=== PATIENT | female | born 1965 | race Caucasian/White ===

== ENCOUNTER → 2019-03-02 15:41 | Outpatient (CLI) | payer OTHER, SELFPAY ==
--- NOTE | ~2019-03-02 | XR_ITS ---
EXAMINATION: XR chest 2V 03/02/2019 16:17 INDICATION: Wheezing, cough and fever PROCEDURE: 2 view chest COMPARISON: 01/16/2019 FINDINGS: The lungs are clear. The cardiomediastinal silhouette is within normal limits. There are no pleural effusions. There is no pneumothorax suspected. IMPRESSION: 1: NO ACUTE CARDIOPULMONARY DISEASE. Reviewed, dictated and finalized at location A. RITY MONITOR
== END ==
PROVIDERS: Visit Provider Internal Medicine
DX: R06.2 Wheezing (principal); R05 Cough; R50.9 Fever, unspecified
CPT/HCPCS: 71046

== ENCOUNTER 2019-05-04 07:24 | Outpatient (CLI) | payer OTHER, SELFPAY ==
--- NOTE | ~2019-05-04 | MM_ITS ---
EXAMINATION: MM screening [facility] BI w jolene HISTORY: Screening mammogram TECHNIQUE: Craniocaudal and mediolateral oblique 3-D tomosynthesis images were obtained and synthetic 2-D images were generated. CAD analysis was submitted and interpreted. COMPARISON: Comparison to multiple prior studies sequentially, with oldest reviewed study dated 11/29. BREAST PARENCHYMAL COMPOSITION: There are scattered areas of fibroglandular density. FINDINGS: There is no evidence of suspicious mass, calcification, or architectural distortion to sugg est malignancy in either breast. There has been no suspicious interval change. IMPRESSION: 1. No mammographic evidence of malignancy. 2. Recommend routine screening mammography in one year. BI-RADS Category 1: Negative Reviewed, dictated and finalized at location A. NMENT SPECIALIST
== END 2019-05-04 07:25 | disposition home or self-care (01) ==
PROVIDERS: PCP Internal Medicine; Visit Provider Obstetrics & Gynecology
DX: Z12.31 Encounter for screening mammogram for malignant neoplasm of breast (principal)
CPT/HCPCS: 77063; 77067

== ENCOUNTER 2020-04-01 09:20 | Outpatient (NON) | payer OTHER, SELFPAY ==
[2020-04-01 23:00] LABS: SARS-CoV-2 RNA PCR Negative
== END 2020-04-01 09:21 ==
LOC: ANHCOVIDDT 09:21
PROVIDERS: PCP Internal Medicine; Visit Provider Internal Medicine
DX: R68.89 Other general symptoms and signs (principal); Z20.822 Contact with and (suspected) exposure to COVID-19
CPT/HCPCS: C9803; U0003; U0005

== ENCOUNTER 2020-05-08 17:29 | Outpatient (CLI) | payer OTHER, SELFPAY | END 2020-05-08 17:30 | disposition home or self-care (01) | LOC: ANHCOVIDVC 17:29 | PROVIDERS: PCP Internal Medicine | DX: Z23 Encounter for immunization (principal) | CPT/HCPCS: 0001A; 91300 ==

== ENCOUNTER 2020-05-29 17:23 | Outpatient (CLI) | payer OTHER, SELFPAY | END 2020-05-29 17:24 | disposition home or self-care (01) | LOC: ANHCOVIDVC 17:23 | PROVIDERS: PCP Internal Medicine | DX: Z23 Encounter for immunization (principal) | CPT/HCPCS: 0002A; 91300 ==

== ENCOUNTER 2021-01-22 12:09 | Outpatient (NON) | payer OTHER, SELFPAY | END 2021-01-22 12:10 | disposition home or self-care (01) | LOC: ANHLAB 12:28 | PROVIDERS: PCP Internal Medicine | DX: D10.39 Benign neoplasm of other parts of mouth (principal) | CPT/HCPCS: 88305 ==

== ENCOUNTER 2021-09-27 10:22 | Emergency (ER) | payer OTHER, SELFPAY ==
--- NOTE | 2021-09-27 10:31 | ED.URI ---
HPI - URI/Sore Throat General Chief Complaint: Ear Stated Complaint: SINUS CONGESTION Time Seen by Provider: 09/27/21 11:12 Source: patient and RN notes reviewed Mode of arrival: ambulatory Limitations: no limitations History of Present Illness HPI Narrative: 56-year-old female presents with concern for sinus congestion, pressure, facial pain, postnasal drainage, sore throat. She reports history of sinus problems, ear problems, bronchitis. She reports she has not taken any [id number] cold remedies for this illness. Reports she took a negative COVID test yesterday. She denies cough. MD elicited complaint: cough, rhinorrhea and nasal congestion Related Data Home Medications Medication Instructions Recorded Confirmed citalopram 40 mg tablet 40 mg PO DAILY 01/14/19 09/27/21 Allergies Allergy/AdvReac Type Severity Reaction Status Date / Time mold Allergy Intermediate Congested Verified 09/27/21 10:42 iodine Allergy Unknown Unknown Verified 09/27/21 10:42 milk Allergy Unknown Unknown Verified 09/27/21 10:42 Penicillins Allergy Unknown Unknown Verified 09/27/21 10:42 doxycycline AdvReac Mild rash Verified 09/27/21 10:42 Review of Systems Review of Systems: CONSTITUTIONAL: Denies malaise, chills, sweats, or fever. EYES: Denies visual changes, redness, or discharge. ENT: Reports rhinorrhea, congestion, sinus pain, and sore throat. CARDIOVASCULAR: Denies chest pain, palpitations, or edema. RESPIRATORY: Denies cough. Denies dyspnea. GASTROINTESTINAL: Denies abdominal pain, nausea, vomiting, diarrhea SKIN: Denies rash or itching. MUSCULOSKELETAL: Denies myalgia. NEUROLOGIC: Reports headache. 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 There is no relevant family history pertinent to the presenting complaint Exam Narrative: GENERAL: Nontoxic-appearing and in no acute distress. HEAD: Normocephalic EYES: PERRLA, conjunctivae clear ENT: Nares clear, turbinates edematous and erythematous, sinus tenderness. Mucous membranes moist. TM pearly centeno with sharp light reflex bilaterally; no tragal tenderness. Oropharynx not erythematous without lesions. Tonsils not enlarged and without exudate, no drooling, no hoarseness, no trismus, uvula midline. NECK: Supple. No lymphadenopathy CHEST: Clear to auscultation, breath sounds equal. No wheezing, rhonchi, rales, or stridor. No respiratory distress, speaks in full sentences. HEART: Regular rate and rhythm. No murmur heard. SKIN: Warm, dry, no rash. NEURO: Alert and oriented x3. PSYCH: Normal mood and affect Course Course Emergency Course: Patient is aware of diagnosis, understands and agrees to treatment plan. Anticipatory guidance given. Patient agrees to follow-up as directed and is aware of reasons to seek care at the emergency department. Portions of this record may have been created with voice recognition software Level of Care: Express Care Visit Vital Signs Vital signs: Vital Signs Temperature 97.4 F L 09/27/21 10:42 Pulse Rate 88 09/27/21 10:42 Respiratory Rate 16 09/27/21 10:42 Blood Pressure 122/94 H 09/27/21 10:42 Pulse Oximetry 99 09/27/21 10:42 Oxygen Delivery Room Air 09/27/21 10:42 Temperature
[2021-09-27 10:42] VITALS: BP 122/94; PULSE 88; RESP 16; TEMP 36.3; O2SAT 99
== END 2021-09-27 11:23 | disposition home or self-care (01) ==
PROVIDERS: Emergency Provider Nurse Practitioner; PCP Family Medicine
DX: J06.9 Acute upper respiratory infection, unspecified (principal); Z20.822 Contact with and (suspected) exposure to COVID-19
CPT/HCPCS: 87426; 99213; C9803; G0463

== ENCOUNTER 2021-10-30 14:55 | Outpatient (CLI) | payer OTHER, SELFPAY ==
--- NOTE | ~2021-10-30 | MM_ITS ---
EXAMINATION: MM screening [facility] BI w jolene HISTORY: Screening mammogram TECHNIQUE: Craniocaudal and mediolateral oblique 3-D tomosynthesis images were obtained and synthetic 2-D images were generated. CAD analysis was submitted and interpreted. COMPARISON: 05/04/2019, 04/05/2018, 01/13/2016 BREAST PARENCHYMAL COMPOSITION: There are scattered areas of fibroglandular density. FINDINGS: There is no suspicious mass, calcification, or architectural distortion to suggest malignan cy in either breast. There has been no suspicious interval change. IMPRESSION: 1. No mammographic evidence of malignancy. 2. Recommend routine screening mammography in one year. BI-RADS Category 1: Negative Reviewed, dictated and finalized at location A.
== END 2021-10-30 14:56 | disposition home or self-care (01) ==
PROVIDERS: PCP Family Medicine; Visit Provider Obstetrics & Gynecology
DX: Z12.31 Encounter for screening mammogram for malignant neoplasm of breast (principal)
CPT/HCPCS: 77063; 77067

== ENCOUNTER 2021-12-22 16:52 | Emergency (ER) | payer OTHER, SELFPAY ==
[2021-12-22 17:01] VITALS: PULSE 123; RESP 20; TEMP 36.3; O2SAT 98
--- NOTE | 2021-12-22 17:08 | ED.URI ---
HPI - URI/Sore Throat General Chief Complaint: Upper Respiratory Infection Stated Complaint: sinus pressure and congestion, cough Time Seen by Provider: 12/22/21 17:05 Source: patient, RN notes reviewed and old records reviewed Mode of arrival: ambulatory Limitations: no limitations History of Present Illness HPI Narrative: 56-year-old female who presents to [facility] with complaints of non allergic sinus infection with cough and green sinus drainage and phlegm for the past 4 days. Patient reports that she has been taking Mucinex DM, Sudafed and also Flonase for her symptoms without resolution.Patient states that she has some sinus pressure, denies ear pain or any sore throat or high fevers. MD elicited complaint: cough, rhinorrhea, nasal congestion and sinus pain Pertinent past history: sinusitis and seasonal allergies Onset (ago): day(s) (4-5) Treatments prior to arrival: other (mucinex DM and Sudafed and flonase) Related Data Home Medications Medication Instructions Recorded Confirmed citalopram 40 mg tablet 40 mg PO DAILY 01/14/19 09/27/21 Allergies Allergy/AdvReac Type Severity Reaction Status Date / Time mold Allergy Intermediate Congested Verified 09/27/21 10:42 iodine Allergy Unknown Unknown Verified 09/27/21 10:42 milk Allergy Unknown Unknown Verified 09/27/21 10:42 Penicillins Allergy Unknown Unknown Verified 09/27/21 10:42 doxycycline AdvReac Mild rash Verified 09/27/21 10:42 Review of Systems Review of Systems: CONSTITUTIONAL: Reports malaise,no chills, sweats, or acute fevers. EYES: Denies visual changes, redness, or discharge. ENT: Reports rhinorrhea, congestion, sinus pain, no otalgia and sore throat. CARDIOVASCULAR: Denies chest pain, palpitations, or edema. RESPIRATORY: Reports cough.? Denies dyspnea. GASTROINTESTINAL: Denies abdominal pain, nausea, vomiting, diarrhea SKIN: Denies rash or itching. MUSCULOSKELETAL: Denies myalgia. NEUROLOGIC: Denies headache. All systems reviewed & are unremarkable except as noted in HPI and below PMFSH Past Medical History Medical History (Updated 12/23/21 @ 17:16 by Alexa Roger NP) Bronchitis Hyperlipidemia Sinusitis SVT (supraventricular tachycardia) medication controlled Surgical History Surgical History History of placement of ear tubes Hx of left knee surgery Previous section meniscus repair Family History Family History Mother Patient's mother is in good health Father Patient's father is in good health Sibling Patient's brother is in good health Social History Social History Smoking status: Never smoker Second hand tobacco smoke exposure: Yes Alcohol intake: never 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 There is no relevant family history pertinent to the presenting complaint Exam Narrative: GENERAL: Well-appearing, well-nourished, and in no acute distress. HEAD: Normocephalic EYES: PERRLA, conjunctivae clear ENT: Nares clear, turbinates edematous and erythematous, clear to greenish reported discharge. Mucous membranes moist. TM pearly centeno with dull light reflex bilaterally; no tragal tenderness. Oropharynx erythematous without lesions. Tonsils not enlarged and without exudate, no drooling, no hoarseness, no trismus, uvula midline. NECK: Supple. No lymphadenopathy CHEST: Clear to auscultation, breath sounds equal. No wheezing, rhonchi, rales, or stridor. No respiratory distress, speaks in full sentences.harsh cough noted SAO2 98% on room air HEART: Regular rate and rhythm. No murmur heard. SKIN: Warm, dry, no rash. NEURO: Alert and oriented x3. PSYCH: Normal mood a
[2021-12-22 17:52] VITALS: BP 104/60
== END 2021-12-22 17:39 | disposition home or self-care (01) ==
PROVIDERS: Emergency Provider Registered Nurse; PCP Family Medicine
DX: J32.9 Chronic sinusitis, unspecified (principal); R05.9 Cough, unspecified; E78.5 Hyperlipidemia, unspecified
CPT/HCPCS: 99213; G0463

== ENCOUNTER 2021-12-28 14:18 | Emergency (ER) | payer OTHER, SELFPAY ==
[2021-12-28 14:26] VITALS: BP 137/86; PULSE 106; RESP 16; TEMP 36.6; O2SAT 98
--- NOTE | 2021-12-28 14:33 | ED.URI ---
HPI - URI/Sore Throat General Chief Complaint: Upper Respiratory Infection Stated Complaint: sinus pressure, cough, runny nose Time Seen by Provider: 12/28/21 14:33 Source: patient and RN notes reviewed Mode of arrival: ambulatory Limitations: no limitations History of Present Illness HPI Narrative: 56 y/o female presented for c/o sinus pressure and frequent nonproductive cough for over 10 days. Patient was seen on 12/22 given Zpack and taking guaifenesin as directed at night which helps. Tried a nebulizer breathing treatment this morning without change. Also taking sudafed and Flonase. Denies fatigue or lethargy, fever, or vomiting. MD elicited complaint: cough Related Data Home Medications Medication Instructions Recorded Confirmed citalopram 40 mg tablet 40 mg PO DAILY 01/14/19 09/27/21 Allergies Allergy/AdvReac Type Severity Reaction Status Date / Time mold Allergy Intermediate Congested Verified 09/27/21 10:42 iodine Allergy Unknown Unknown Verified 09/27/21 10:42 milk Allergy Unknown Unknown Verified 09/27/21 10:42 Penicillins Allergy Unknown Unknown Verified 09/27/21 10:42 doxycycline AdvReac Mild rash Verified 09/27/21 10:42 Review of Systems Review of Systems: CONSTITUTIONAL:denies malaise, chills, sweats, fever EYES: Denies visual changes, redness, or discharge ENT: per HPI CARDIOVASCULAR: Denies chest pain, palpitations, edema RESPIRATORY: Denies dyspnea GASTROINTESTINAL: Denies abdominal pain, nausea, vomiting, diarrhea SKIN: Denies rash or itching MUSCULOSKELETAL: denies myalgia PMFSH Past Medical History Medical History Bronchitis Hyperlipidemia Sinusitis SVT (supraventricular tachycardia) medication controlled Surgical History Surgical History History of placement of ear tubes Hx of left knee surgery Previous section meniscus repair Family History Family History Mother Patient's mother is in good health Father Patient's father is in good health Sibling Patient's brother is in good health Social History Social History Smoking status: Never smoker Second hand tobacco smoke exposure: Yes Alcohol intake: never 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 TMs pearly centeno with light reflex bilaterally; no tragal tenderness. Oropharynx erythematous without lesions or exudate CHEST: Frequent nonproductive harsh cough. Lungs with bibasilar wheezing. No respiratory distress, speaks in full sentences. HEART: Regular rate and rhythm. No murmur heard. SKIN: Warm, dry, no rash. NEURO: Alert and oriented x3. PSYCH: Normal mood and affect Course Course Emergency Course: Patient is aware of diagnosis, understands and agrees to treatment plan. Anticipatory guidance given. Patient agrees to follow-up as directed and is aware of reasons to seek care at the emergency department. Portions of this record may have been created with voice recognition software Level of Care: Express Care Visit Vital Signs Vital signs: Vital Signs Temperature 97.8 F 12/28/21 14:26 Pulse Rate 106 H 12/28/21 14:26 Respiratory Rate 16 12/28/21 14:26 Blood Pressure 137/86 12/28/21 14:26 Pulse Oximetry 98 12/28/21 14:26 Temperature 97.8 F 12/28/21 14:26 Pulse Rate 106 H 12/28/21 14:26 Respiratory Rate 16 12/28/21 14:26 Blood Pressure 137/86 12/28/21 14:26 Pulse Oximetry 98 12/28/21 14:26 reviewed MDM - URI/Sore Throat MDM Narrative Medical decision making narrative: Advised supportive measures and signs/symptoms to go to the ER. Will add Rx steroid. Pt is appropriat
== END 2021-12-28 14:50 | disposition home or self-care (01) ==
PROVIDERS: Emergency Provider Nurse Practitioner Family; PCP Family Medicine
DX: J40 Bronchitis, not specified as acute or chronic (principal); E78.5 Hyperlipidemia, unspecified
CPT/HCPCS: 99213; G0463

== ENCOUNTER 2022-10-21 11:03 | Emergency (ER) | payer OTHER, SELFPAY ==
--- NOTE | ~2022-10-21 | XR_ITS ---
EXAMINATION: XR chest 2V DATE: 10/21/2022 11:25 INDICATION: Chest pain and productive cough TECHNIQUE: Frontal and lateral views of the chest are obtained COMPARISON: 03/02/2019 FINDINGS: The lungs are free of acute opacities. No pleural effusion or pneumothorax. The cardiomedia stinal silhouette is normal. There is mild thoracic spondylosis. IMPRESSION: 1. No acute cardiopulmonary abnormality. Reviewed, dictated and finalized at location A.
[2022-10-21 11:12] VITALS: BP 133/90; PULSE 79; RESP 16; TEMP 36.3; O2SAT 97
--- NOTE | 2022-10-21 11:16 | ED.URI ---
HPI - URI/Sore Throat General Chief Complaint: Upper Respiratory Infection Stated Complaint: Cough, Chest Pain, Headache Time Seen by Provider: 10/21/22 11:15 Source: patient Mode of arrival: ambulatory Limitations: no limitations History of Present Illness HPI Narrative: Connor is a 57-year-old female patient presenting to the clinic today with complaints of productive cough with green phlegm, chest pain, and headache. She reports her symptoms started on Wednesday. Denies any fever, chills, body aches, or shortness of breath. No known exposure to anyone with COVID, flu, or strep. States mid sternal chest pain is constant and is radiating into her back. Currently rates her pain 5/10. MD elicited complaint: cough and other (Chest pain, headache) Related Data Home Medications Medication Instructions Recorded Confirmed citalopram 40 mg tablet 40 mg PO DAILY 01/14/19 10/21/22 Allergies Allergy/AdvReac Type Severity Reaction Status Date / Time mold Allergy Intermediate Congested Verified 10/21/22 11:19 iodine Allergy Unknown Unknown Verified 10/21/22 11:19 milk Allergy Unknown Unknown Verified 10/21/22 11:19 Penicillins Allergy Unknown Unknown Verified 10/21/22 11:19 doxycycline AdvReac Mild rash Verified 10/21/22 11:19 Review of Systems Review of Systems: Pertinent positives per HPI. Patient denies any fever, chills, rash, visual changes, dizziness, shortness of breath, palpitations, nausea, vomiting, diarrhea, constipation, abdominal pain, or any urinary issues. PMFSH Past Medical History Medical History Bronchitis Hyperlipidemia Sinusitis SVT (supraventricular tachycardia) medication controlled Surgical History Surgical History History of placement of ear tubes Hx of left knee surgery Previous section meniscus repair Family History Family History Mother Patient's mother is in good health Father Patient's father is in good health Sibling Patient's brother is in good health Social History Social History Smoking status: Never smoker Second hand tobacco smoke exposure: Yes Alcohol intake: never Lack of Transportation: No Current Housing: I Have Housing Concerned About Future Housing: No Difficulty Paying Gas/Electric Bills: No Difficulty Paying for Meds: No Currently Unemployed: No Education: Master's Degree or Higher Difficulty w/ Childcare or Family Care: No Living arrangements: with family Occupation/Education: occupation 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 There is no relevant family history pertinent to the patient complaint. Exam Narrative: General: Well-developed, well nourished, in no apparent distress Head: Normocephalic, atraumatic Eyes: Pupils equally round and reactive to light bilaterally, EOM intact, sclera and conjunctive clear, no discharge, lids normal Ears: TMs intact and clear, ear canals clear, no drainage, grossly hearing normal. Nose: Nares patent, no discharge, no inflammation, no sinus tenderness. Mouth: Oral pharynx without lesions or masses, good dentition, MMM. Neck: Supple, trachea midline, no enlargement of anterior or posterior cervical nodes, no thyroid masses or goiter palpable. Cardio: Regular rate and rhythm, s1 and s2 normal, no murmur appreciated. Resp: Clear to auscultation bilaterally, no rhonchi, rales, wheezing or rubs Course Course Emergency Course: Portions of this record may have been created with voice recognition software. Level of Care: Express Care Visit Vital Signs Vital sig
--- NOTE | 2022-10-21 11:17 | ECG_ITS ---
Measurements Intervals [place] Rate: 75 P: 13 GA: 150 QRS: 23 QRSD: 106 T: 21 QT: 380 QTc: 426 Interpretive Statements SINUS RHYTHM LOW QRS VOLTAGE IN PRECORDIAL LEADS [QRS DEFLECTION < 1.0 mV IN CHEST LEADS] NONSPECIFIC T-WAVE ABNORMALITY NO PREVIOUS ECG AVAILABLE FOR COMPARISON Electronically Signed On 10-21-2022 14:06:24 CDT by Nikia Lujan M.D.
--- NOTE | 2022-10-21 11:50 | PC.NURSE ---
PT DECLINES TRANSFER TO ER, TO SIGN AMA
== END 2022-10-21 12:00 | disposition left against medical advice (07) ==
PROVIDERS: Emergency Provider Nurse Practitioner Family; PCP Family Medicine
DX: R05.1 Acute cough (principal); R07.89 Other chest pain; Z20.822 Contact with and (suspected) exposure to COVID-19; E78.5 Hyperlipidemia, unspecified
CPT/HCPCS: 71046; 87426; 93005; 99213; C9803; G0463

== ENCOUNTER 2022-11-25 09:24 | Outpatient (CLI) | payer OTHER, SELFPAY ==
--- NOTE | 2022-11-25 10:29 | EST_ITS ---
Patient Info Name: Azalia Evans Age: 57 years : 1965 Gender: Female Ht: 65 in Wt: 190 lbs BSA: 2.02 m2 HR: 81 bpm BP: 136 / 91 mmHg Heart Rhythm: Sinus Rhythm Exam Date: 11/25/2022 10:39 AM Exam Location: [facility] Stress Patient Status: Outpatient Admit Date: 11/25/2022 Staff Ordering Physician: Marina Obrien Attending Provider: Alejandro Landry DO Exercise Technologist: Juany Mariano CT Exercise Physician: Jw Mota DO Exam Type: CA stress test treadmill Study Info Indications R07.89 - Other chest pain A treadmill exercise stress test was performed. Summary 1. 1. Negative All exercise stress test for ischemic ST changes by ECG criteria. 2. 2. Reduced functional capacity, achieving 7 METs of workload. 3. 3. Hypertensive response to exercise. 4. 4. Appropriate HR response to exercise. 5. 5. Appropriate HR recovery at 1 minute post exercise. 6. 6. No imaging with stress testing. 7. 7. Patient informed of the above results. Protocol: All Stress ECG Details Stage: REST Duration (min): 3 min : 39 sec Speed (mph): 0.0 Grade (%): 0 HR (bpm): 85 SBP (mmHg): 136 DBP (mmHg): 91 METS: --- Stage: REST Duration (min): 12 min : 6 sec Speed (mph): 0.0 Grade (%): 0 HR (bpm): 87 SBP (mmHg): 136 DBP (mmHg): 91 METS: --- Stage: STAGE 1 Duration (min): 1 min : 0 sec Speed (mph): 1.7 Grade (%): 10 HR (bpm): 112 SBP (mmHg): 136 DBP (mmHg): 91 METS: --- Stage: STAGE 1 Duration (min): 2 min : 0 sec Speed (mph): 1.7 Grade (%): 10 HR (bpm): 122 SBP (mmHg): 136 DBP (mmHg): 91 METS: --- Stage: STAGE 1 Duration (min): 3 min : 0 sec Speed (mph): 1.7 Grade (%): 10 HR (bpm): 128 SBP (mmHg): 177 DBP (mmHg): 79 METS: --- Stage: STAGE 2 Duration (min): 1 min : 0 sec Speed (mph): 2.5 Grade (%): 12 HR (bpm): 136 SBP (mmHg): 177 DBP (mmHg): 79 METS: --- Stage: STAGE 2 Duration (min): 2 min : 0 sec Speed (mph): 2.5 Grade (%): 12 HR (bpm): 141 SBP (mmHg): 174 DBP (mmHg): 81 METS: --- Stage: STAGE 2 Duration (min): 3 min : 0 sec Speed (mph): 2.5 Grade (%): 12 HR (bpm): 140 SBP (mmHg): 174 DBP (mmHg): 81 METS: --- Stage: STAGE 3 Duration (min): 0 min : 1 sec Speed (mph): 3.4 Grade (%): 14 HR (bpm): 140 SBP (mmHg): 174 DBP (mmHg): 81 METS: --- Stage: RECOVERY Duration (min): 0 min : 58 sec Speed (mph): 0.0 Grade (%): 0 HR (bpm): 119 SBP (mmHg): 208 DBP (mmHg): 83 METS: --- Stage: RECOVERY Duration (min): 1 min : 58 sec Speed (mph): 0.0 Grade (%): 0 HR (bpm): 106 SBP (mmHg): 208 DBP (mmHg): 83 METS: --- Stage: RECOVERY Duration (min): 2 min : 58 sec Speed (mph): 0.0 Grade (%): 0 HR (bpm): 99 SBP (mmHg): 149 DBP (mmHg): 86 METS: --- Stage: RECOVERY Duration (min): 3 min : 3 sec Speed (mph): 0.0 Grade (%): 0 HR (bpm): 9
--- NOTE | 2022-12-01 12:01 | WPDHOLTEREM ---
Holter/Event Monitor Holter/Event Monitor Date of procedure: 11/25/22 Holter/Event Procedure: 48 Hr Holter Monitor Indications: Chest pain Conclusion: 1. 48 hour holter monitor on 11/25/22. 2. Predominant rhythm is sinus rhythm. HR range 63-150 bpm; average HR 89 bpm. HR at 150 bpm was at 09:21. 3. There are 16 premature supraventricular complexes, 3 supraventricular couplets. There are 2 episodes of atrial tachycardia, fastest at 145 bpm and longest lasting 6 beats. 4. No premature ventricular complexes. No ventricular tachycardia. 5. No sinoatrial or atrioventricular blocks. No significant pauses greater than 2 seconds. 6. No symptoms available for correlation.
== END 2022-11-25 09:25 | disposition home or self-care (01) ==
PROVIDERS: PCP Family Medicine; Visit Provider Family Medicine
DX: R07.9 Chest pain, unspecified (principal)
CPT/HCPCS: 93017; 93225; 93226

== ENCOUNTER 2023-01-23 08:38 | Emergency (ER) | payer OTHER, SELFPAY ==
[2023-01-23 08:44] VITALS: BP 137/82; PULSE 96; RESP 16; TEMP 36.4; O2SAT 98
--- NOTE | 2023-01-23 08:49 | ED.URI ---
HPI - URI/Sore Throat General Chief Complaint: Upper Respiratory Infection Stated Complaint: can't hear on right ear,face hurts,cough Time Seen by Provider: 01/23/23 08:49 Source: patient, RN notes reviewed and old records reviewed Mode of arrival: ambulatory Limitations: no limitations History of Present Illness HPI Narrative: 57-year-old female presents to the [facility] with facial discomfort, cough and decreased hearing to the right ear for 2 weeks. Has had similar issues in past. Recently on steroids. Is established with an ENT doctor. States that she uses Flonase daily, has been taking Mucinex. Onset (ago): week(s) (2) Treatments prior to arrival: cold medicine Related Data Home Medications Medication Instructions Recorded Confirmed citalopram 40 mg tablet 40 mg PO DAILY 01/14/19 01/23/23 betamethasone dipropionate 0.05 % 1 applic topical DIRECTED 01/23/23 01/23/23 topical ointment Allergies Allergy/AdvReac Type Severity Reaction Status Date / Time Penicillins Allergy Severe Stopped Verified 01/23/23 08:53 Breathing mold Allergy Intermediate Congested Verified 01/23/23 08:53 iodine Allergy Unknown Unknown Verified 01/23/23 08:53 milk Allergy Unknown Unknown Verified 01/23/23 08:53 doxycycline AdvReac Mild rash Verified 01/23/23 08:53 Review of Systems Review of Systems: All systems reviewed & are unremarkable except as noted in HPI and below Constitutional: Constitutional: Reports no additional constitutional complaints Eyes: Eyes: Reports no additional eye complaints ENT: Reports as per HPI, Reports otalgia (Right), Reports sinus pain and Reports sinus pressure Cardiovascular: Cardiovascular: Reports no additional cardiovascular complaints, Denies chest pain and Denies dyspnea Respiratory: Respiratory: Reports as per HPI, Denies chest congestion, Reports cough, Denies dyspnea and Denies wheezing Gastrointestinal: Gastrointestinal: Reports no additional gastrointestinal complaints, Denies abdominal pain, Denies nausea and Denies vomiting Musculoskeletal: Musculoskeletal: Reports no additional musculoskeletal complaints Integumentary/Breasts: Skin/Breast: Reports system reviewed and no additional complaints, except as docu Neurologic: Reports system reviewed and no additional complaints, except as documented Psychiatric: Psychiatric: Reports no additional psychiatric complaints Allergic/Immunologic: Allergic/Immunologic: Reports no additional allergic/immunologic complaints PMFSH Past Medical History Medical History Bronchitis Hyperlipidemia Sinusitis SVT (supraventricular tachycardia) medication controlled Surgical History Surgical History History of placement of ear tubes Hx of left knee surgery Previous section meniscus repair Family History Family History Mother Patient's mother is in good health Father Patient's father is in good health Sibling Patient's brother is in good health Social History Social History Smoking status: Never smoker Second hand tobacco smoke exposure: Yes Alcohol intake: never Living arrangements: with family Occupation/Education: occupation 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 There is no relevant family history pertinent to the patient complaint. Exam Const: General: cooperative, healthy appearing, comfortable, no acute distress, well developed, alert and well nourished Nutritional Appearance: well nourished Orientation/consciousness: patient oriented x3 Limitations: no limitations HENMT: Head: normal to inspection E
== END 2023-01-23 09:12 | disposition home or self-care (01) ==
PROVIDERS: Emergency Provider Nurse Practitioner; PCP Family Medicine
DX: J32.9 Chronic sinusitis, unspecified (principal); H65.01 Acute serous otitis media, right ear; E78.5 Hyperlipidemia, unspecified; Z79.899 Other long term (current) drug therapy
CPT/HCPCS: 99213; G0463

== ENCOUNTER 2023-01-23 09:43 | Outpatient (CLI) | payer OTHER, SELFPAY ==
--- NOTE | ~2023-01-23 | MM_ITS ---
EXAMINATION: MM screening kavon BI w jolene HISTORY: Screening mammogram TECHNIQUE: Craniocaudal and mediolateral oblique 3-D tomosynthesis images were obtained and synthetic 2-D images were generated. CAD analysis was submitted and interpreted. COMPARISON: 10/30/2021, 05/04/2019, bilateral screening mammogram examinations BREAST PARENCHYMAL COMPOSITION: There are scattered areas of fibroglandular density. FINDINGS: Stable bilateral posterior upper outer quadrant small intramammary lymph nodes. There is no evidence of suspicious mass, calcification, or architectural distortion to suggest malignancy in eit her breast. There has been no suspicious interval change. IMPRESSION: 1. No mammographic evidence of malignancy. 2. Recommend routine screening mammography in one year. BI-RADS Category 2: Benign finding(s). Reviewed, dictated and finalized at location A. [facility]
== END 2023-01-23 09:44 | disposition home or self-care (01) ==
PROVIDERS: PCP Family Medicine; Visit Provider Nurse Practitioner
DX: Z12.31 Encounter for screening mammogram for malignant neoplasm of breast (principal)
CPT/HCPCS: 77063; 77067

== ENCOUNTER → 2023-02-15 14:38 | Outpatient (CLI) | payer OTHER, SELFPAY ==
--- NOTE | ~2023-02-15 | XR_ITS ---
EXAMINATION: XR chest 2V 02/15/2023 15:14 INDICATION: Cough PROCEDURE: 2 view chest COMPARISON: Comparison to multiple prior studies sequentially, with oldest reviewed study dated 03/26. FINDINGS: The lungs are clear. The cardiomediastinal silhouette is within normal limits. There are no pleural effusions. There is no pneumothorax suspected. IMPRESSION: 1: NO ACUTE CARDIOPULMONARY DISEASE. Reviewed, dictated and finalized at location A. [facility]
== END ==
PROVIDERS: PCP Family Medicine; Visit Provider Nurse Practitioner
DX: R05.9 Cough, unspecified (principal)
CPT/HCPCS: 71046

== ENCOUNTER 2023-02-15 15:13 | Outpatient (CLI) | payer OTHER, SELFPAY ==
[2023-02-15 20:23] LABS: Influenza A QL RT-PCR Negative (Negative); Influenza B QL RT-PCR Negative (Negative); RSV RNA, RT-PCR Negative (Negative); SARS-CoV-2 RNA PCR Negative (Negative)
== END 2023-02-15 15:14 | disposition home or self-care (01) ==
PROVIDERS: PCP Family Medicine; Visit Provider Nurse Practitioner
DX: R05.9 Cough, unspecified (principal); Z20.822 Contact with and (suspected) exposure to COVID-19
CPT/HCPCS: 87637

== ENCOUNTER 2023-09-11 12:06 | Emergency (ER) | payer OTHER, SELFPAY ==
[2023-09-11 12:14] VITALS: BP 131/86; PULSE 97; RESP 16; TEMP 36.3; O2SAT 98
--- NOTE | 2023-09-11 12:26 | ED.GENADULT ---
HPI - General Adult General Chief complaint: Nausea/Vomiting/Diarrhea Stated complaint: DIARRHEA Time Seen by Provider: 09/11/23 12:27 History of Present Illness HPI narrative: patient presents with complaints of diarrhea x1 week. She reports her is ill with similar illness. 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 She also has been around her [id number] who has C diff. the patient denies any fever, chills, sweats. She denies any nausea or vomiting. She denies any abdominal pain. She reports that diarrhea has been intermittent over the past week Related Data Home Medications Medication Instructions Recorded Confirmed citalopram 40 mg tablet 40 mg PO DAILY 01/14/19 09/11/23 betamethasone dipropionate 0.05 % 1 applic topical DIRECTED 01/23/23 09/11/23 topical ointment Allergies Allergy/AdvReac Type Severity Reaction Status Date / Time mold Allergy Severe Stopped Verified 09/11/23 12:25 Breathing Penicillins Allergy Severe Stopped Verified 09/11/23 12:25 Breathing milk AdvReac Intermediate Gastrointestinal Verified 09/11/23 12:25 Upset doxycycline AdvReac Mild rash Verified 09/11/23 12:25 iodine AdvReac Mild Rash Verified 09/11/23 12:25 Review of Systems Review of Systems: All systems reviewed & are unremarkable except as noted in HPI and below Constitutional: Constitutional: Reports no additional constitutional complaints ENT: Reports system reviewed and no additional complaints, except as documented Cardiovascular: Cardiovascular: Reports no additional cardiovascular complaints Respiratory: Respiratory: Reports no additional respiratory complaints Gastrointestinal: Gastrointestinal: Denies abdominal pain, Reports diarrhea, Reports loose stools and Denies nausea PMFSH Past Medical History Medical History Bronchitis Hyperlipidemia Sinusitis SVT (supraventricular tachycardia) medication controlled Surgical History Surgical History History of placement of ear tubes Hx of left knee surgery Previous section meniscus repair Family History Family History Mother Patient's mother is in good health Father Patient's father is in good health Sibling Patient's brother is in good health Social History Social History Smoking status: Never smoker Second hand tobacco smoke exposure: Yes Alcohol intake: never Living arrangements: with family Occupation/Education: occupation 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 Exam Const: General: cooperative, no acute distress, alert and awake Orientation/consciousness: oriented to person, oriented to place and oriented to time HENMT: Head: normal to inspection Resp: Effort & Inspection: normal respiratory effort and able to speak in complete sentences Auscultation: clear to auscultation bilaterally, no crackles, no rales, no rhonchi and no wheezes Cardio: Palpation: normal PMI Rate: regular rate Rhythm: regular rhythm Heart sounds: S1 normal heart sound present and S2 normal heart sound present GI: GI Palp: No abdominal tenderness, Yes Soft to palpation, No Tenderness to palpation present (GI), No Guarding due to palpation present (GI) and No Rigid due to palpation Auscultation: normal bowel sounds Neuro: General: oriented to person, oriented to place and oriented to time Cranial nerves: Yes CN's II-XII intact bilaterally Psych: Appearance: grossly normal Thought process: Normal thought process present Insight: Good insight present (Psych) Judgement: Good judgement present (Psych) Course Course Level of Care: Express Care Visit Vital Signs Vital signs: Vital Signs Temperature 97
== END 2023-09-11 12:37 | disposition home or self-care (01) ==
PROVIDERS: Emergency Provider Nurse Practitioner Family; PCP Family Medicine
DX: R19.7 Diarrhea, unspecified (principal); E78.5 Hyperlipidemia, unspecified
CPT/HCPCS: 99211; G0463

== ENCOUNTER 2023-11-10 14:01 | Outpatient (CLI) | payer OTHER, SELFPAY ==
[2023-11-10 19:36] LABS: Basophils Absolute Auto 0.1 K/mm3 (0.0-0.1); Basophils Percent Auto 0.9 % (0.2-1.2); Eosinophils Absolute Auto 0.1 K/mm3 (0-0.3); Hematocrit 39.8 % (37.0-47.0); Hemoglobin 12.9 g/dL (12.0-15.0); Immature Granulocyte Absolute 0.01 K/mm3 (0.00-0.031); Immature Granulocyte Percent A 0.2 % (0-0.5); Lymphocytes Absolute Auto 1.94 K/mm3 (0.9-3.2); Lymphocytes Percent Auto 30.5 % (18.3-44.2); Mean Corpuscular HGB Conc 32.4 g/dl (32-36); Mean Corpuscular Hemoglobin 28.7 pg (26-34); Mean Corpuscular Volume 88.4 fl (80-100); Mean Platelet Volume 10.4 fl (7.4-10.4); Monocytes Absolute Auto 0.4 K/mm3 (0.1-0.6); Monocytes Percent Auto 6.8 % (2.6-8.5); Neutrophils Absolute Auto 3.8 K/mm3 (1.3-6.7); Neutrophils Percent Auto 59.6 % (45.5-73.1); Platelet Count Result 320 k/mm3 (150-375); Red Cell Distribution Width 12.7 % (11.5-14.5); White Blood Count 6.4 K/mm3 (4.5-10.0)
[2023-11-10 21:09] LABS: Alanine Aminotransferase 41 U/L (6-35); Albumin Level 4.4 g/dL (3.5-5.1); Alkaline Phosphatase 112 U/L (38-126); Anion Gap 9 mmol/L (4-12); Aspartate Amino Transferase 45 U/L (14-36); Bilirubin,Total 0.5 mg/dL (0.2-1.3); Blood Urea Nitrogen 8 mg/dL (7-17); Calcium 9.4 mg/dL (8.4-10.2); Carbon Dioxide 27 mmol/L (22-30); Chloride 103 mmol/L (98-107); Cholesterol 173 mg/dL (0-200); Estimated Glomerular Filt Rate > 60; Glucose 98 mg/dL (65-110); HDL Direct 36 mg/dL; Potassium 3.6 mmol/L (3.4-5.0); Sodium 139 mmol/L (137-145); Triglycerides 292 mg/dL (<150)
[2023-11-10 21:18] LABS: LDL Cholesterol Direct 75 mg/dL
== END 2023-11-10 14:02 | disposition home or self-care (01) ==
LOC: ANHGOSHLAB 14:02
PROVIDERS: PCP Family Medicine; Visit Provider Student in an Organized Health Care Education/Training Program
DX: R19.7 Diarrhea, unspecified (principal); E78.5 Hyperlipidemia, unspecified; Z13.228 Encounter for screening for other metabolic disorders
CPT/HCPCS: 36415; 80053; 80061; 85025; 87045; 87427; 87449

== ENCOUNTER 2023-11-10 17:00 | Outpatient (CLI) | payer OTHER, SELFPAY | END 2023-11-10 17:01 | disposition home or self-care (01) | LOC: ANHLAB 17:01 | PROVIDERS: PCP Family Medicine; Visit Provider Student in an Organized Health Care Education/Training Program | DX: R19.7 Diarrhea, unspecified (principal) | CPT/HCPCS: 87045; 87427; 87449 ==

== ENCOUNTER 2024-04-29 08:45 | Emergency (ER) | payer OTHER, SELFPAY ==
[2024-04-29 08:54] VITALS: BP 132/74; PULSE 84; RESP 16; TEMP 36.1; O2SAT 99
--- NOTE | 2024-04-29 08:59 | ED.EYEPROB ---
HPI - Eye Problem General Chief complaint: Eye Problems Stated complaint: left eye Time Seen by Provider: 04/29/24 09:00 Source: patient Mode of arrival: ambulatory Limitations: no limitations History of Present Illness HPI Narrative: Azalia is a 58-year-old female patient presenting to the clinic today with complaints of left eye pain and swelling. She reports symptoms started yesterday. Attempted to see her eye doctor today but no provider was in the clinic. Is complaining of left lower eye lid pain. States this morning when she woke up her face was somewhat swollen on the left side as well as she had her eye matted shut with yellow drainage Related Data Home Medications ?Medication ?Instructions ?Recorded ?Confirmed ?Last Taken ?Type citalopram 40 mg tablet 40 mg PO DAILY 01/14/19 11/09/23 Unknown History Allergies Allergy/AdvReac Type Severity Reaction Status Date / Time mold Allergy Severe Stopped Verified 04/29/24 08:57 Breathing Penicillins Allergy Severe Stopped Verified 04/29/24 08:57 Breathing milk AdvReac Intermediate Gastrointestinal Verified 04/29/24 08:57 Upset doxycycline AdvReac Mild rash Verified 04/29/24 08:57 iodine AdvReac Mild Rash Verified 04/29/24 08:57 Review of Systems Review of Systems: Pertinent positives per HPI. Patient denies any fever, chills, rash, headache, visual changes, dizziness, cough, runny nose, sore throat, shortness of breath, chest pain, palpitations, nausea, vomiting, diarrhea, constipation, abdominal pain, or any urinary issues. PMFSH Past Medical History Medical History Bronchitis Hyperlipidemia Sinusitis SVT (supraventricular tachycardia) medication controlled Surgical History Surgical History History of placement of ear tubes Hx of left knee surgery Previous section meniscus repair Family History Family History Mother Patient's mother is in good health Father Patient's father is in good health Sibling Patient's brother is in good health Social History Social History Smoking status: Never smoker Second hand tobacco smoke exposure: Yes Alcohol intake: never Living arrangements: with family Occupation/Education: occupation 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 There is no relevant family history pertinent to the patient complaint. Exam Narrative: General: Well-developed, well nourished, in no apparent distress Head: Normocephalic, atraumatic Eyes: Pupils equally round and reactive to light bilaterally, EOM intact, right sclera and conjunctive clear, no discharge, lids normal, left sclera and conjunctiva injected with stye to the left lower internal eyelid, area tender to palpation, no discharge seen. Mild lower periorbital edema Ears: TMs intact and clear, ear canals clear, no drainage, grossly hearing normal. Nose: Nares patent, no discharge, no inflammation, no sinus tenderness. Mouth: Oropharynx without lesions or masses, good dentition, MMM. Neck: Supple, trachea midline, no enlargement of anterior or posterior cervical nodes, no thyroid masses or goiter palpable. Cardio: Regular rate and rhythm, s1 and s2 normal, no murmur appreciated. Resp: Clear to auscultation bilaterally anteriorly and posteriorly, no rhonchi, rales, wheezing or rubs Course Course Emergency Course: Portions of this record may have been created with voice recognition software. Level of Care: Express Care Visit Vital Signs Vital signs: Vital Signs Temperature 36.1 C L 04/29/24 08:54 Pulse Rate 84 04/29/24 08:54 Respiratory Rate 16 04/29/24 08:54 Blood Pressure 132/74 04/29/24 08:54 Pulse Oximetry 99 04/29/24 08:54 Temperature 36.1 C L 04/29/24 08:54 Pulse Rate 84 04/29/24 08:54 Respiratory Rate 16 04/29/24 08:54 Blood Pressure 132/74 04/29/24 08:54 Pulse Oximetry 99 04/29/24 08:54 Vital signs reviewed MDM - Eye Problem MDM Narrative Medical decision making narrative: At the time of visit patient is resting comfortably on the exam table. Patient appears to be nontoxic. Plan: I suspect patient has an internal stye to the left lower eyelid causing her pain and swelling. Prescription for polymyxin eyedrops was sent to the pharmacy. Supportive measures were discussed with the patient and they voiced understanding discharge instructions and agrees to treatment plan. Return precautions reviewed Differential Diagnosis Differential diagnosis: Likely corneal abrasion, conjunctivitis, acute iritis, hyphema, periorbital cellulitis, subconjunctival hemorrhage, glaucoma, corneal ulcer, ruptured globe and other (Stye) Discharge Plan Discharge Clinical Impression: Internal hordeolum of left eye Patient Disposition: Home, Self-Care Condition: Stable Instructions: Antibiotic Honey, Pedro (ED) Additional Instructions: Instill polymyxin eyedrops as prescribed Apply warm compress to the affected area-15 minutes on/15 minutes off May take Tylenol/Motrin as needed for pain or fever. Follow-up with your eye doctor on Wednesday Go to the emergency room if symptoms worsen-pain, swelling, visual changes, or any other concerning symptoms Patient Language: Kiswahili Prescriptions: New polymyxin B sulf-trimethoprim 10,000 unit- 1 mg/mL drops 1 drp EACH EYE Q3H 7 Days Qty: 10 0RF Rx Instructions: while awake; do not exceed 6 doses in 24 hours No Action citalopram 40 mg Tablet 40 mg PO DAILY diltiazem HCl [Cartia XT] 120 mg capsule,extended release 24hr 120 mg PO DAILY Qty: 90 4RF fluticasone propionate [Allergy Relief (fluticasone)] 50 mcg/actuation spray,suspension 2 spray INTRANASAL DAILY Qty: 47.4 4RF pravastatin 20 mg tablet 20 mg PO DAILY Qty: 90 1RF metoprolol succinate 50 mg tablet extended release 24 hr 50 mg PO DAILY Qty: 90 1RF Follow-up/Referrals: PHYSICIAN,BRIAR WOOD SORTER [Primary Care Provider] - Time of Disposition: 09:01 Quality NIHSS Nursing Documentation ED NIHSS nursing documentation: reviewed/agree
== END 2024-04-29 09:04 | disposition home or self-care (01) ==
PROVIDERS: Emergency Provider Nurse Practitioner Family
DX: H00.025 Hordeolum internum left lower eyelid (principal); E78.5 Hyperlipidemia, unspecified
CPT/HCPCS: 99213; G0463

== ENCOUNTER 2024-06-13 15:03 | Emergency (ER) | payer OTHER, SELFPAY ==
--- NOTE | ~2024-06-13 | XR_ITS ---
EXAMINATION: XR knee RT 3V DATE: 06/13/2024 15:29 INDICATION: Posterior right knee pain and clicking TECHNIQUE: Standing AP, lateral and sunrise views of the right knee were obtained COMPARISON: None. FINDINGS: Alignment is normal. No fracture. Mild osteoarthritis at the patellofemoral compartment of the right knee. Minimal osteoarthritis at the medial and lateral compartments with tiny marginal ossified but relatively preserved joint spaces. Moderate-sized right knee joint effusion. Soft tissues are unremar kable. IMPRESSION: 1. Mild patellofemoral compartment predominant osteoarthritis of the right knee with moderate-sized k nee joint effusion. Reviewed, dictated and finalized at location A. IMPRESSION: 1. Mild patellofemoral compartment predominant osteoarthritis of the right knee with moderate-sized knee joint effusion.
--- NOTE | 2024-06-13 15:04 | ED.LOWEXIN ---
HPI - Extremity Injury (Lower) General Chief Complaint: Extremity Injury, Lower Stated Complaint: R KNEE PAIN Time Seen by Provider: 06/13/24 15:04 Source: patient Mode of arrival: ambulatory Limitations: no limitations History of Present Illness HPI Narrative: Azalia is a 4-year-old female patient presenting to the clinic today with complaints of posterior right knee pain x5 weeks. She reports pain and swelling is getting worse. No known injury. Noticed that when she is going up and down the steps her right knee is clicking. Pain to the posterior knee. No history of DVT. No history of blood clotting disorders. No CP or SOB. No known swann cyst. Related Data Home Medications ?Medication ?Instructions ?Recorded ?Confirmed ?Last Taken ?Type citalopram 40 mg tablet 40 mg PO DAILY 01/14/19 05/17/24 Unknown History Allergies Allergy/AdvReac Type Severity Reaction Status Date / Time mold Allergy Severe Stopped Verified 06/13/24 15:13 Breathing Penicillins Allergy Severe Stopped Verified 06/13/24 15:13 Breathing milk AdvReac Intermediate Gastrointestinal Verified 06/13/24 15:13 Upset doxycycline AdvReac Mild rash Verified 06/13/24 15:13 iodine AdvReac Mild Rash Verified 06/13/24 15:13 Review of Systems Review of Systems: Pertinent positives per HPI. Patient denies any fever, chills, rash, headache, visual changes, dizziness, cough, runny nose, sore throat, shortness of breath, chest pain, palpitations, nausea, vomiting, diarrhea, constipation, abdominal pain, or any urinary issues. PMFSH Past Medical History Medical History Insomnia Severe obesity (BMI 35.0-35.9 with comorbidity) Hx of cataract BMI 35.0-35.9,adult Hyperlipidemia SVT (supraventricular tachycardia) medication controlled Surgical History Surgical History Hx of left knee surgery Previous section meniscus repair History of placement of ear tubes Family History Family History Mother Patient's mother is in good health Father Patient's father is in good health Sibling Patient's brother is in good health Social History Social History Smoking status: Never smoker Second hand tobacco smoke exposure: Yes Alcohol intake: current Substance use: never Substance use type: does not use Do You Feel Safe in your Home?: Yes Lack of Transportation: No Lack of Food: Never True Current Housing: I Have Housing Concerned About Future Housing: No Difficulty Paying Gas/Electric Bills: No Difficulty Paying for Meds: No Currently Unemployed: No Education: Bachelor's Degree Difficulty w/ Childcare or Family Care: No Living arrangements: with family Occupation/Education: occupation 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 There is no relevant family history pertinent to the patient complaint. Exam Narrative: General: Well-developed, well nourished, in no apparent distress Head: Normocephalic, atraumatic. Cardio: Regular rate and rhythm, s1 and s2 normal, no murmur appreciated. Resp: Clear to auscultation bilaterally, no rhonchi, rales, wheezing or rubs. Musculoskeletal: No deformity, tender to palpation to the posterior knee joint, mild swelling to the right knee when compared to the left knee, mild crepitus palpable with flexion and extension, no calf swelling, negative Karri sign, grossly normal range of motion, muscle strength strong and equal, peripheral pulse strong, no edema, no cyanosis, normal gait and station Course Course Emergency Course: Portions of this record may have been created with voice recognition software. Level of Care: Express Care Visit Vital Signs Vital signs: Vital Signs Temperature 36.3 C L 06/13/24 15:10 Pulse Rate 98 06/13/24 15:10 Respiratory Rate 16 06/13/24 15:10 Blood Pressure 125/85 06/13/24 15:10 Pulse Oximetry 99 06/13/24 15:10 Oxygen Delivery Room Air 06/13/24 15:10 Temperature 36.3 C L 06/13/24 15:10 Pulse Rate 98 06/13/24 15:10 Respiratory Rate 16 06/13/24 15:10 Blood Pressure 125/85 06/13/24 15:10 Pulse Oximetry 99 06/13/24 15:10 Oxygen Delivery Room Air 06/13/24 15:10 Vital signs reviewed MDM - Extremity Injury (Lower) MDM Narrative Medical decision making narrative: At the time of visit patient is resting comfortably on the exam table. Patient appears to be nontoxic. Diagnosis: X-ray shows of the right knee mild tricompartmental osteoarthritis with moderate knee joint effusion Plan: I suspect patient has osteoarthritis, moderate knee joint effusion, and posterior knee pain. Prescription for Medrol Dosepak was sent to the pharmacy. Rigoberto wrap was applied. Recommend follow-up with PCP if symptoms persist as she may need MRI to rule out meniscus tear or Swann cyst. Supportive measures were discussed with the patient and they voiced understanding discharge instructions and agrees to treatment plan. Return precautions reviewed Wells DVT criteria: 0?points Low risk group for DVT. ?Unlikely? according to Wells? DVT studies. Differential Diagnosis Differential diagnosis: Likely acute internal derangement of knee and other (Tibia fracture, femur fracture, swann cyst, osteoarthritis, meniscus tear) Imaging Data Radiologist's impression: ITS Impressions Knee X-Ray 06/13/24 15:32 IMPRESSION: 1. Mild patellofemoral compartment predominant osteoarthritis of the right knee with moderate-sized knee joint effusion. Discharge Plan Discharge Clinical Impression: Effusion of knee joint right Posterior knee pain Qualifiers: Laterality: right Qualified Code(s): M25.561 - Pain in right knee Osteoarthritis Qualifiers: Osteoarthritis location: knee Osteoarthritis type: unspecified Laterality: right Qualified Code(s): M17.11 - Unilateral primary osteoarthritis, right knee Patient Disposition: Home Condition: Stable Instructions: Antibiotic Form, Osteoarthritis (ED), Swollen Knee Joint (ED), Knee Pain (ED) Additional Instructions: Rest, ice, elevate, and wear rigoberto wrap as directed Tylenol/motrin for pain as discussed. Take Medrol Dosepak as prescribed Gradually bear weight No running or sports until healed. Follow up with your PCP in 2-3 days-may need further imaging such as an MRI if symptoms persist to determine if there is a meniscus tear Patient Language: Comoran Prescriptions: New methylprednisolone [Medrol (Familia)] 4 mg tablets,dose pack See Rx Instructions PO .COMPLEX Qty: 21 0RF Rx Instructions: orally per package directions No Action citalopram 40 mg Tablet 40 mg PO DAILY polymyxin B sulf-trimethoprim 10,000 unit- 1 mg/mL drops 1 drp EACH EYE Q3H 7 Days Qty: 10 0RF Rx Instructions: while awake; do not exceed 6 doses in 24 hours trazodone 50 mg tablet 50 mg PO QHS PRN (Reason: insomnia) Qty: 30 0RF diltiazem HCl [Cartia XT] 120 mg capsule,extended release 24hr 120 mg PO DAILY Qty: 90 3RF fluticasone propionate [Allergy Relief (fluticasone)] 50 mcg/actuation spray,suspension 2 spray INTRANASAL DAILY Qty: 47.4 4RF pravastatin 20 mg tablet 20 mg PO DAILY Qty: 90 1RF Follow-up/Referrals: Nina Davey DO [Primary Care Provider] - Time of Disposition: 15:41 Quality NIHSS Nursing Documentation ED NIHSS nursing documentation: reviewed/agree
[2024-06-13 15:10] VITALS: BP 125/85; PULSE 98; RESP 16; TEMP 36.3; O2SAT 99
== END 2024-06-13 15:48 | disposition home or self-care (01) ==
PROVIDERS: Emergency Provider Nurse Practitioner Family; PCP Family Medicine
DX: M25.461 Effusion, right knee (principal); M25.561 Pain in right knee; M17.11 Unilateral primary osteoarthritis, right knee; E78.5 Hyperlipidemia, unspecified; E66.01 Morbid (severe) obesity due to excess calories; Z68.34 Body mass index [BMI] 34.0-34.9, adult
CPT/HCPCS: 73562; 99213; G0463

== ENCOUNTER 2024-07-03 13:50 | Outpatient (CLI) | payer OTHER, SELFPAY ==
--- NOTE | ~2024-07-03 | MR_ITS ---
EXAMINATION: MR knee RT wo con DATE: 07/03/2024 14:26 INDICATION: Right knee pain TECHNIQUE: Magnetic resonance imaging (MRI) of the right knee was performed without intravenous contr ast. Sequences included coronal PD-weighted FSE, coronal PD-weighted FS FSE, sagittal T2-weighted FS E, sagittal PD-weighted FS FSE and axial PD weighted fat saturated FSE. COMPARISON: None. FINDINGS: Medial compartment: Complex tear involving the body and posterior horn of the medial meniscus which has both horizontal, radial and vertical longitudinal components. There is deep chondral ulceration involving greater than 50% the cartilage thickness along the central weightbearing medial femoral condyle with less severe partial thickness chondral ulceration at the anterior weightbearing medial femoral condyle. Small foc us of subarticular edema-like signal change medial rim at the junction of the anterior and central we ightbearing medial femoral condyle. Mild partial-thickness cartilage loss without degenerative subcho ndral changes along the medial and posterior margins of the medial tibial plateau. Lateral compartment: Lateral meniscus is normal. Articular cartilage is normal. Patellofemoral compartment: Extensive full thickness chondral ulceration with Cortical irregularity and subarticular edema-like and cystlike changes at the central aspect of the p atellar apical ridge, the inferior half of the lateral patellar facet and the superolateral aspect of the lateral trochlea. Deep chondral fissure with minimal underlying subarticular edema-like signal c hange at the trochlear groove and inferolateral aspect of the medial trochlea. Partial-thickness cart ilage loss without degenerative subchondral changes at the medial patellar facet. Ligaments and tendons: Anterior and posterior cruciate ligaments are normal. The medial collateral ligament and fibular david ateral ligament complex are normal. The extensor mechanism is normal. The visualized medial and later al hamstring tendons as well as the iliotibial band are normal. Fluid: Small knee joint effusion. No loose osteochondral bodies identified. Small Swann's cyst measuring 4.1 cm craniocaudally and up to 1.9 x 1.2 cm in maximal orthogonal dimensions. Osseous/other: Bone alignment is normal. No fracture or pathologic marrow replacing process. IMPRESSION: 1. Complex tear of the body and posterior horn of the medial meniscus. 2. Severe patellofemoral osteoarthritis with regions of high-grade chondromalacia at the lateral sloan lla and lateral trochlea. 3. Mild osteoarthritis medial compartment with predominantly moderate grade chondromalacia. 4. Small right knee joint effusion and small Swann's cyst. Reviewed, dictated and finalized at location A. IMPRESSION: 1. Complex tear of the body and posterior horn of the medial meniscus. 2. Severe patellofemoral osteoarthritis with regions of high-grade chondromalac ia at the lateral patella and lateral trochlea. 3. Mild osteoarthritis medial compartment with predominantly moderate grade cho ndromalacia. 4. Small right knee joint effusion and small Swann's cyst.
== END 2024-07-03 13:51 | disposition home or self-care (01) ==
PROVIDERS: PCP Orthopaedic Surgery; Visit Provider Family Medicine
DX: S83.231A Complex tear of medial meniscus, current injury, right knee, initial encounter (principal); X58.XXXA Exposure to other specified factors, initial encounter; M17.11 Unilateral primary osteoarthritis, right knee; M25.369 Other instability, unspecified knee; M22.41 Chondromalacia patellae, right knee; M25.461 Effusion, right knee; M71.21 Synovial cyst of popliteal space [Baker], right knee
CPT/HCPCS: 73721

== ENCOUNTER 2024-07-05 15:02 | Outpatient (CLI) | payer OTHER, SELFPAY ==
--- OUTSIDE RECORDS SUMMARY | 2024-07-05 15:05 | XMS_ITS | Clinical Summary ---
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 Gender Identity Not on file Sexual Orientation Not on file Plan of Treatment Health Maintenance Due Date Last Done Comments Hepatitis C Virus (HCV) Screening 1965 TdaP Immunization 1965 Colonoscopy 08/10/2008 Colorectal Cancer Screening 08/10/2008 Cologuard 08/10/2013 Immunochemical Fecal Occult Blood 08/10/2013 Pneumococcal Immunization (5 0+ years) (1 of 1 - PCV) 08/10/2013 Zoster Immunization (1 of 2) 08/10/2013 Influenza Immunization (#1) 10/31/202311/29, 01/14/2019, 12/08/2014 SARS-COV-2 Immunization ( season) 2023 02/07/2021, 05/29/2020, 05/08/2020 Respiratory Syncytial Virus (RSV) Immunization (Adult) (1 - 1-dose 75+ series) 08/10/2038 Hepatitis B Immunization Aged Out No longer eligible based on patient's age to complete this topic Meningococcal Immunization (ACWY) Aged Out No longer eligible b ased on patient's age to complete this topic Rotavirus Immunization Aged Out No lo nger eligible based on patient's age to complete this topic
--- OUTSIDE RECORDS SUMMARY | 2024-07-05 15:05 | XMS_ITS | Referral Summary ---
Author Organization [facility] [place] [place] Address [address] [place] [id number] Care Team Providers Care Music Pastor Name Role Phone Oswaldo Waldron MD Primary Care Provider [phone] Allergies Active Allergy Reactions Criticality Noted Date Comments Milk Containing Products (Dairy) Other (See comments) Low 12/19/2013 Penicillins Anaphylaxis High 09/19/2012 Medications No known medications Active Problems No known active problems Immunizations Immunization Administration Dates Next Due Influenza, Quadrivalent, Split, Intramuscular Influenza, Trivalent, Preservative Free, Intramu scular 12/08/2014 Social History Tobacco Use Types Packs/Day Years Used Date Smoking Tobacco: Never Smokeless Tobacco: Never Personal Safety Answer Date Recorded Getting School Help Needed Not on file 05/15 Comments Unknown Sex and Gender Information Value Date Recorded Sex Assigned at Not on file 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 Gender Identity Not on file Sexual Orientation Not on file Last Filed Vital Signs Vital Sign Reading Time Taken Comments Blood Pressure 134/86 08/15/2021 6:13 PM CDT Pulse 82 08/15/2021 6:13 PM CDT Temperature 37.2 C (99 F) 08/15/2021 6:13 PM CDT Respiratory Rate 14 08/15/2021 6:13 PM CDT Oxygen Saturation 99% 08/15/2021 6:13 PM CDT Inhaled Oxygen Concentration - - Weight 88 kg (194 lb) 08/15/2021 6:13 PM CDT Height 165.1 cm (5' 5 ) 08/15/2021 6:13 PM CDT Body Mass Index 32.28 08/15/2021 6:13 PM CDT Plan of Treatment Not on file Insurance [facility] PLUS [facility] H[facility]/PPO Address: [place] [address] Care Teams Music Pastor Relationship Specialty Start Date End Date Oswaldo Waldron MD [address] [place] [address] PCP - General Internal Medicine 11/06/20
--- OUTSIDE RECORDS SUMMARY | 2024-07-05 15:05 | XMS_ITS | Clinical Summary ---
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 Gender Identity Not on file Sexual Orientation Not on file Obstetrics History Last Filed Vital Signs Vital Sign Reading [...] 08/15/2021 6:13 PM CDT Plan of Treatment Health Maintenance Due Date Last Done Comments Breast Cancer Screening-Mammogram 1965 Cervical Cancer Screening 1965 Colon Cancer Screening-Colonoscopy 1965 Depression Screening 1965 Hepatitis C Screening 1965 DTaP/Tdap/Td Vaccine (1 - Tdap) 08/10/1974 Hepatitis B Screening 08/10/1981 Regular Well Visit/Exam 18-64 08/10/1981 Zoster Vaccine (1 of 2) 08/10/2013 Covid-19 Vaccine (4 - 2023-2 5 season) 2023 02/07/2021, 05/29/2020, 05/08/2020 Influenza Vaccine (#1) 2023 , 12/08/2014 Pneumococcal vaccine <65 Aged Out No longer eligible based on patient's age to complete this topic Insurance [facility] H[facility]/PPO Address: [facility] [address] [place] [address] [address] [place] [id number] Care Teams Pick Pack Worker Relationship Specialty Start Date End Date Oswaldo Waldron MD [address] [place] [address] PCP - General Internal Medicine 11/06/20
--- OUTSIDE RECORDS SUMMARY | 2024-07-05 15:06 | XMS_ITS | Clinical Summary ---
Author Organization [facility] Address [address] [facility] [place] [address] Care Team Providers Care Print Cutter Name Role Phone Kati Cordero MD Unavailable [phone] Source Comments [facility],non-owned Affiliates and Associated Physician Practices is amultiple site organization consisting of ambulatory clinics and hospital sitesin [place], [place], [place]. This disclosure is being madepursuant to the Care Everywhere program and may not contain all information available regarding this patient. Last updated 17.[facility] Allergies Active Allergy Reactions Criticality Noted Date Comments Milk-Related Compounds 12/19/2013 Penicillins 09/19/2012 Medications * Be aware that medications may not be up to date on this document. Alwaysverify current medications with the patient. Calcium Carbonate-Vitam in D (CALCIUM PLUS VITAMIN D PO) Take 1 Tab by mouth once daily. Active diltiazem coated beads 24hr (CARTIA XT) 120 MG capsule Take 120 mg by mouth once daily. Do not crush or chew. Active fluticasone propionate (FLONASE) 50 MCG/ACT nasal spray 11/27/2013 Active pravastatin (PRAVACHOL) 20 MG tablet 3 06/25/2014 Active Loperamide (IMODIUM) 2 MG tablet Take 2 mg by mouth once Active erythromycin (ROMYCIN) 5 MG/GM ophthalmic ointment APPLY TO UPPER AND LOWER EYELIDS QOD HS 6 12/12/2015 Active metroNIDAZOLE (FLAGYL) 500 MG tabletIndicatio ns:BV (bacterial vaginosis) Take 1 Tab by mouth 2 times daily 14 Tab 3 01/02/2016 Active citalopram (CELEXA) 40 MG tablet Take 1 Tab by mouth once daily 90 Tab 3 01/02/2016 Active Active Problems Problem Noted Date Diagnosed Date Fecal incontinence 10/19/2012 Overview (10/19/2012): Had sphincteroplasty done by Dr. Monica Rollins but still has some problems. Family History Medical History Relation Name Comments Hypertension Father Hypertension Maternal Grandfather Arthritis Mother Heart Disease Paternal Grandfather Relation Name Status Comments Brother Alive Father Alive Maternal Grandfather Maternal Grandmother Mother Alive Paternal Grandfather Paternal Grandmother Social History Tobacco Use Types Packs/Day Years Used Date Smoking Tobacco: Never Smokeless Tobacco: Never Alcohol Use Standard Drinks/Week Comments No 0 (1 standard drink = 0.6 oz pur e alcohol) Comments No Sex and Gender Information Value Date Recorded Sex Assigned at Not on file Legal Sex Female 1:52 PM PRIMARY THERAPIST Gender Identity Not on file Sexual Orientation Not on file Last Filed Vital Signs Vital Sign Reading Time Taken Comments Blood Pressure 110/68 04/03/2018 2:41 PM PRIMARY THERAPIST Pulse 121 04/03/2018 2:41 PM PRIMARY THERAPIST Temperature 37.7 C (99.8 F) 04/03/2018 2:41 PM PRIMARY THERAPIST Respiratory Rate 16 04/03/2018 2:41 PM PRIMARY THERAPIST Oxygen Saturation 96% 04/03/2018 2:41 PM PRIMARY THERAPIST Inhaled Oxygen Concentration - - Weight 81.6 kg (180 lb) 04/03/2018 2:41 PM PRIMARY THERAPIST Height 165.1 cm (5' 5 ) 04/03/2018 2:41 PM PRIMARY THERAPIST Body Mass Index 29.95 04/03/2018 2:41 PM PRIMARY THERAPIST Plan of Treatment Health Maintenance Due Date Last Done Comments COLOGUARD (AGES 45-75) - COL ON CA SCREENING 1965 COLON MONITORING 1963 COLONOSCOPY - COLON CA SCREENING 1963 CT COLONOGRAPHY - COLON CA SCREENING 1965 Colorectal Cancer Screening 1965 FIT - COLON CA SCREENING 1965 FLEX SIG - COLON CA SCREENING 1965 HIV SCREENING 08/10/1978 HEPATITIS C SCREENING 08/06/1981 DTAP/TDAP/TD VACCINES (1 - Tdap) 08/10/1982 PNEUMOCOCCAL VACCINE 50+ (1 of 1 - PCV) 08/10/2013 ZOSTER VACCINE (1 of 2) 08/10/2013 PAP with HPV 10/19/2017 10/19/2012 MAMMOGRAM 01/12/2018 01/13/2016, 01/13/2016, 12/14/2014 SCREENING FOR DIABETES 04/03/2018 COVID-19 VACCINE (2023-2 5 season) 2023 DEPRESSION SCREENING 03/01/2024 INFLUENZA VACCINE (Season Ended) 2024 Respiratory Syncytial Virus (RSV) Vaccine Pt: or over 60 yrs (1 - 1-dose 75+ series) 08/10/2038 HEPATITIS B VACCINE Aged Out No longe r eligible based on patient's age to complete this topic HIB VACCINE Aged Out No longer eligi ble based on patient's age to complete this topic HPV VACCINE Aged Out No longer eligi ble based on patient's age to complete this topic MENINGOCOCCAL (Group B) VACCINE SHARED DECISION-MAKING Aged Out No longer eligible based on patient's age to complete this topic MENINGOCOCCAL GROUPS A/C/Y/W VACCINE Aged Out No longer eligible b ased on patient's age to complete this topic Procedures Procedure Name Priority Date/Time Associated Diagnosis Comments MAMMOGRAPHY ORDER Routine 01/13/2016 PAP W CESAR HPV HR+HPV 16/18 Routine 10/19/2012 4:39 PM CDT Routine gynecological examination from Last 3 Months or Most Recently Relevant to Health Maintenance Results * MAMMOGRAPHY ORDER (01/13/2016) Anatomical Region Laterality Modality Mammography us Kati Cordero MD MAMMO ORDERABLES Final Result * PAP W CESAR HPV HR+HPV 16/18 (PO REF LAB) (10/19/2012 4:39 PM CDT) Diagnosis [facility] ACCOUNT BILL Comment:NEGATIVE FOR INTRAEP ITHELIAL LESION AND MALIGNANCY. Specimen Adequacy [facility] ACCOUNT BILL Comment: Satisfactory for evaluation. Endocervical and/or squamous metaplastic cells (endocervical component) are present. Clinician Provided ICD9 [facility] ACCOUNT BILL Comment:V72.31 ; Routine wood pole treater ecological examination Performed by [facility] ACCOUNT BILL Comment:Consuelo nguyen, Room Clerk (ASCP) Comment . [facility] ACCOUNT BILL Note [facility] ACCOUNT BILL Comment: The Pap smear is a screening test designed to aid in the detection of premalignant and malignant conditions of the uterine cervix. It is not a diagnostic procedure and should not be used as the sole means of detecting cervical cancer. Both false-positive and false-negative reports do occur. . IGLBP CPT Code Automation [facility] ACCOUNT BILL Comment: This liquid based ThinPrep(R) pap test was screened with the use of an image guided system. Human papillomavirus Other hr types Negative Negative [facility] ACCOUNT BILL Human papillomavirus 16 Negative Negative [facility] ACCOUNT BILL Human papillomavirus 18 Negative Negative [facility] ACCOUNT BILL Comment: This test detects fourteen high-risk HPV types: HPV16, HPV18 and twelve other high-risk types (31, 33, 35, 39, 45, 51, 52, 56, 58, 59, 66, 68) without differentiation. MICROSCOPIC CYTOLOGIC EXAMINATION OF SMEAR OF SPECIMEN FROM FEMALE GENITAL TRACT PREPARED USING PAPANICOLAOU TECHNIQUE / Unknown 10/19/2012 4:39 PM CDT 10/20/2012 2:58 AM CDT Narrative [facility] ACCOUNT BILL - 10/26/2012 3:12 AM CDT Source.............Cervical;Endocervical LMP / Prev Treat...KEF=[id number] No. of containers..01 CYTYC Thin Prep Vial Resulting Agency Comment [facility] [address] [phone] Kati Cordero MD LAB - PATHOLOGY/CYTOLOGY [facility] Final Result [facility] ACCOUNT BILL [address] [place] [address] from Last 3 Months or Most Recently Relevant to Health Maintenance Insurance [facility] Member Subscriber Plan / Payer (Ef fective for All Dates) Name:Xander Evans Relation to Subscriber:Self Name:Xander Evans Payer ID:[id number] (NAIC) Type:O Address: [address] [place] [id number] Care Teams Print Cutter Relationship Specialty [place] [address] [address] [place] [id number] Therapist Rrt Obstetrics and Gynecology 10/19/12
--- OUTSIDE RECORDS SUMMARY | 2024-07-05 15:06 | XMS_ITS | Data Portability ---
Author Organization [facility] [place] Address [address] [place] [address] [address] Care Team Providers Care C Programmer Name Role Phone BISI FRANCOIS Primary Care Provider [phone] Assessment Encounter Date Assessment Date Assessment LastModified by Organization Details LastModified Time 10/11/2023 10/11/2023 Annual gynecological exam performed. Patient will come back in a year unless there are new symptoms. Not available 10/11/2023 15:12:06 Plan of Treatment Reminders Order Date Submit Date Provider Last Modified By Organization Details Last Modified Time Details Appointments None recorded. Lab test, urine 2023 024 harman [place], [address], [address], [place], [address], 12:30:58 Referral None recorded. Procedures None recorded. Surgeries None recorded. Imaging US, pelvis 2023 024 fannie [place], [address], [address], [place], [address], 20:47:29 US, transvagina l 2023 024 fannie [place], [address], [address], [place], [address], 20:47:29 US, pelvis, complete 2023 024 VITA Chaparro[address], [address], [place], [address], 5 05:01:19 Medication Orders Estrace 0.01% (0.1 mg/gram) vaginal cream 2023 024 [facility][id number], [address], [place], [place], [id number], 4 16:59:05 betamethaso ne dipropionat e 0.05 % topical ointment 2023 024 [facility] #00365, [address], [place], [place], [id number], 4 16:57:47 metronidazo le 500 mg tablet 2023 024 [facility] #22532, [address], [place], [place], [id number], 4 12:26:55 betamethaso ne dipropionat e 0.05 % topical ointment 2022 023 [facility] #35297, [address], [place], [place], [id number], 3 17:04:20 Estrace 0.01% (0.1 mg/gram) vaginal cream 2022 023 [facility] #02752, [address], [place], [place], [id number], 3 17:03:19 citalopram 40 mg tablet 2022 023 [facility] #17420, [address], [place], [place], [id number], 3 17:02:44 Patient TargetsNo targets recorded. Patient InstructionsNo instructions recorded. Reason for Referral None Reported. Results Created Date Observation Date Name Description Value Unit Range Abnormal Flag Note LastModifiedBy Organization Detail LastModifiedTime 10/29/19 24 10/29/2023 pregn raffi test, urine HCG negati ve Not Available [facility] [address], [place], [address], 10/29/2023 12:30:46 10/12/19 24 10/12/2023 , pelvi s No observ ation record ed. [email or web address] [place] [address], [place], [address], 10/12/2023 18:03:07 10/12/19 24 10/12/2023 US, trans vagin al No observ ation record ed. [email or web address] [place] [address], [place], [address], 10/12/2023 18:03:17 10/12/19 24 10/12/2023 US, pelvi s No observ ation record ed. [email or web address] [address], [place], [address], 10/29/2023 15:43:46 Result Notes None recorded. Problems Name Problem SNOMED Code Status Onset Date Resolution Date Notes Provider Name and Address Organization Details Recorded Time Supraven tricular tachycar bella 5947293 Active 2020 Khadijah Gilliam MD [address], [place], [address], [facility] 14:00:15 Body mass index 30+ - obesity 150873173 Active 2020 Khadijah Gilliam MD [address], [place], [address], [facility] 14:00:29 Psoriasi s of vulva 268876367 Active 2021 Khadijah Gilliam MD [address], [place], [address], [facility] 2 17:05:04 Atrophic vaginiti s 19294811 Active 2021 Khadijah Gilliam MD [address], [place], [address], [facility] 2 17:05:21 Subacute and chronic vaginiti s 605877880 Completed 201706/12/2020 Subacute and chronic vaginiti s;Record ed Elsewher e: No [facility] EHR Monitoring Engineer carrillo: N Practi ce ID: 0001 Fredy lable Time: 10:45:00 AM Khadijah Gilliam MD [address], [place], [address], [facility] [address] 10:06:[address] Concept Completed 201906/12/2020 Encntr for industrial order clerk exam (general ) (routine ) w/o abn findings ;Recorde d Elsewher e: No [facility]: EHR Monitoring Engineer carrillo: N Practi ce ID: [id number] Fredy lable Time: 08:15:00 AM Khadijah Gilliam MD [address], [place], [address], [facility] [address] 10:06:[address] Concept Completed 201706/12/2020 Encntr for general adult medical exam w/o abnormal findings ;Recorde d Elsewher e: No Locat ion: [facility] S ource: EHR Monitoring Engineer carrillo: N Practi ce ID: 0001 Fredy lable Time: 08:30:00 AM Khadijah Gilliam MD [address], [place], [address], [facility] 1 10:06:32 Screenin g for malignan t neoplasm of rectum Completed 201806/12/2020 Encounte r for screenin g for malignan t neoplasm of rectum;R ecorded Elsewher e: No [facility]: EHR Monitoring Engineer carrillo: N Harshilti ce ID: 0001 Fredy lable Time: 08:45:00 AM Khadijah Gilliam MD [address], [place], [address], [facility] 1 10:06:30 Superfic ial pain on intercou rse [id number] Completed 201806/12/2020 Superfic ial dyspareu pankaj;Elian rded Elsewher e: No Locat ion: [facility] S ource: EHR Monitoring Engineer carrillo: N Harshilti ce ID: 0001 Fredy lable Time: 08:45:00 AM Khadijah Gilliam MD [address], [place], [address], [facility] 1 10:06:39 Menopaus e present 685481078 Active 2017 Menopaus al and female climacte estuardo states;R ecorded Elsewher e: No Locat ion: [facility] S ource: EHR Monitoring Engineer carrillo: N Harshilti ce ID: 0001 Fredy lable Time: 10:45:00 AM Not Available [facility] 0 21:23:32 Problem Notes None recorded. Procedures Surgical History Date Name Laterality Status Provider Name and Address Organization Details Recorded Time 4 Date of Last Pap Smear completed Lori Portillo [facility] 10/29/2023 12:27:04 2 bilateral cataract surgery completed Heydi Park [facility] 10/11/2023 15:21:25 1 Vulvar Biopsy completed Khadijah Gilliam MD [address], [place], [address], [facility] 06/25/2020 17:59:03 0 completed Anabelle Reyes [facility] 08/31/2022 17:12:42 2 Repair of anal sphincter completed Ramona Corea [facility] 06/12/2020 09:17:16 ligation of bilateral fallopian tubes completed Heydi Park [facility] 10/11/2023 15:21:20 Imaging Results Imaging Date Name Status LastModified by Organization Details LastModified Time 10/12/2023 US, pelvis completed [email or web address] [place] [address], [place], [address], 10/12/2023 18:03:07 10/12/2023 US, transvaginal completed [email or web address] [facility] [address], [place], [address], 10/12/2023 18:03:17 10/12/2023 US, pelvis completed [email or web address] [address], [place], [address], 10/29/2023 15:43:46 Procedure Notes None recorded. Medical Equipment None Reported. Allergies Allergen ID Allergen Name Allergen Category Reaction Reaction Severity Criticality Documentation Date Start Date Code Code System Note Provider Name and Address Organization Details Recorded Time 52397 Product containin g penicilli n (product) medicatio n anaphylax is severe Not available 08/31/2022 88848 8001 SNOMED Anabelle perry [facility] 17:12:29 Medications Name Sig Start Date Stop Date Status Note LastModified by Organization Details LastModified Time albuterol sulfate 0.63 mg/3 mL solution for nebulizat ion INHALE 1 VIAL VIA NEBULIZE R EVERY 6 HOURS 08/31 completed Not Available Not Available Not Available prednison e 10 mg tablet 10/10 completed Not Available Not Available Not Available doxycycli ne hyclate 100 mg capsule TAKE 1 CAPSULE BY MOUTH TWICE DAILY FOR 10 DAYS 08/19 completed Not Available Not Available Not Available clindamyc in HCl 300 mg capsule TAKE 1 CAPSULE BY MOUTH EVERY 8 HOURS 10/10 completed Not Available Not Available Not Available citalopra m 40 mg tablet TAKE 1 TABLET BY MOUTH DAILY 2023 active Not Available Not Available Not Avai lable azithromy nany 250 mg tablet FOLLOW PACKAGE DIRECTIO NS 10/10 completed Not Available Not Available Not Available benzonata te 200 mg capsule TAKE 1 CAPSULE BY MOUTH THREE TIMES DAILY NEEDED FOR COUGH 10/10 completed Not Available Not Available Not Available prednison e 20 mg tablet TAKE 2 TABLETS BY MOUTH DAILY 08/19 completed Not Available Not Available Not Available pimecroli mus 1 % topical cream APPLY TWICE DAILY 08/31 completed Not Available Not Available Not Available metronida zole 500 mg tablet TAKE 1 TABLET BY MOUTH TWICE DAILY FOR 7 DAYS 10/28 completed Not Available Not Available Not Available acyclovir 400 mg tablet TAKE 1 TABLET BY MOUTH TWICE DAILY NEEDED FOR COLD SORES 10/10 completed Not Available Not Available Not Available sulfameth oxazole 800 mg-trimet hoprim 160 mg tablet TAKE 1 TABLET BY MOUTH TWICE DAILY FOR 10 DAYS 08/19 completed Not Available Not Available Not Available doxycycli ne monohydra te 100 mg tablet TAKE 1 TABLET BY MOUTH TWICE DAILY FOR 10 DAYS 10/28 completed Not Available Not Available Not Available tetracycl ine 250 mg capsule TAKE ONE CAPSULE BY MOUTH TWICE DAILY 08/31 completed Not Available Not Available Not Available Celexa 20 mg tablet take 1 tablet by oral route every day 04/12 completed Prescrib ed Elsewher e: Yes Loca tion: [facility] odify By: [email or web address] ball DateTime : 03/23/19 18 08:30:00 AM Not Available Not Available Not Available Advair Diskus 250 mcg-50 mcg/dose powder for inhalatio n INHALE 1 PUFF BY MOUTH TWICE DAILY active Not Available Not Available No t Available diltiazem CD 120 mg capsule,e xtended release 24 hr TAKE 1 CAPSULE BY MOUTH DAILY active Not Available Not Available No t Available codeine 10 mg-guaife nesin 100 mg/5 mL oral liquid TAKE 5 ML BY MOUTH EVERY 6 HOURS 08/31 completed Not Available Not Available Not Available Cartia XT 240 mg capsule,e xtended release take 1 capsule by oral route every day 10/01 completed Prescrib ed Elsewher e: Yes Loca tion: [facility] M odify By: christian ball DateTime : 03/23/19 18 08:30:00 AM Not Available Not Available Not Available halobetas ol propionat e 0.05 % topical cream APPLY TWICE DAILY active Not Available Not Available No t Available pravastat in 20 mg tablet TAKE 1 TABLET BY MOUTH DAILY active Not Available Not Available No t Available levofloxa nany 500 mg tablet TAKE 1 TABLET BY MOUTH DAILY 08/19 completed Not Available Not Available Not Available estradiol 0.01% (0.1 mg/gram) vaginal cream INSERT 1 GRAM VAGINALL Y 2 TO 3 TIMES EVERY WEEK active Not Available Not Available No t Available levofloxa nany 750 mg tablet TAKE 1 TABLET BY MOUTH DAILY 10/10 completed Not Available Not Available Not Available methylpre dnisolone 4 mg tablets in a dose pack FOLLOW PACKAGE DIRECTIO NS 10/10 completed Not Available Not Available Not Available betametha sone dipropion ate 0.05 % topical ointment APPLY TO THE AFFECTED AREA EVERY DAY NEEDED active Not Available Not Available No t Available cefdinir 300 mg capsule 08/19 completed Not Available Not Available Not Available fluticaso ne propionat e 50 mcg/actua tion nasal spray,joyce pension SHAKE LIQUID AND USE 2 SPRAYS IN EACH NOSTRIL DAILY 10/10 completed Not Available Not Available Not Available ipratropi um bromide 21 mcg (0.03 %) nasal spray USE 2 SPRAYS IN EACH NOSTRIL THREE TIMES DAILY NEEDED FOR NASAL DRAINAGE 08/31 completed Not Available Not Available Not Available neomycin 3.5 mg/g-poly myxin B 10,000 unit/g-de xameth 0.1 % eye oint active Not Available Not Available Not Available venlafaxi ne ER 75 mg tablet,ex tended release 24 hr take 1 tablet by oral route every day in the morning at the same time each day with food 02/08 completed Prescrib ed Elsewher e: No [facility] odify By: simon doshi DateTime : 12/25/19 18 10:45:00 AM Not Available Not Available Not Available BandaraxNOW COVID-19 Ag Self Test kit TEST DIRECTED TODAY 10/01 completed Not Available Not Available Not Available Vitals Date Recorded Body height Body mass index (BMI) Body weight Systolic blood pressure Diastolic blood pressure Provider Name and Address Organization Details Last Updated DateTime 10/01/2022 162.56 cm 32.8 kg/m2 42529.14 g 119 mm[Hg] 77 mm[Hg] Jenna Solorzano [facility] 3 16:51:20 Date Recorded Body height Body mass index (BMI) Body weight Systolic blood pressure Diastolic blood pressure Systolic blood pressure Diastolic blood pressure Provider Name and Address Organization Details Last Updated DateTime 4 162.56 cm 35.7 kg/m2 32395.2 1 g 154 mm[Hg] 96 mm[Hg] 138 mm[Hg] 88 mm[Hg] Heydi Xavier [facility] 4 09:10:26 Date Recorded Body height Body mass index (BMI) Body weight Systolic blood pressure Diastolic blood pressure Provider Name and Address Organization Details Last Updated DateTime 10/29/2023 162.56 cm 35 kg/m2 31011.84 g 140 mm[Hg] 85 mm[Hg] Lori Bandar [facility] 4 12:26:16 Social History Question Answer Notes LastModified by Organizat ion Details LastModified Time Tobacco Smoking Status Never Smoker Sonia perry, [facility] 10/01/2022 16:36:00 Do You Have An Advance Directive? No Information n ot available 08/31/2022 What Is Your Level Of Alcohol Consumption? None Information not available 08/31/2022 Are You Blind Or Do You Have Difficulty Seeing? No Information n ot available 08/31/2022 What Is Your Level Of Caffeine Consumption? Moderate Information not available 08/31/2022 How Much Tobacco Do You Chew? None Information not available 08/31/2022 In The 14 Days Before Symptom Onset, Have You Had Close Contact With A Laboratory-confirm ed COVID-19 While That Case Was Ill? No Information n ot available 08/31/2022 In The 14 Days Before Symptom Onset, Have You Had Close Contact With A Person Who Is Under Investigation For COVID-19 While That Person Was Ill? No Information not available 08/31/2022 Have You Been To An Area Known To Be High Risk For COVID-19? No Information not available 08/31/2022 Are You Deaf Or Do You Have Serious Difficulty Hearing? No Information not available 08/31/2022 What Type Of Diet Are You Following? REGULAR Information n ot available 08/31/2022 What Is The Highest Grade Or Level Of School You Have Completed Or The Highest Degree You Have Received? 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 Yes Information not available 08/31/2022 Do You Use Protection During Sex? No Information not available 08/31/2022 Do You Use Your Seat Belt Or Car Seat Routinely? Yes Information not available 08/31/2022 Do You Have Smoke And Carbon Monoxide Detectors In Your Home? Yes Information not available 08/31/2022 How Much Tobacco Do You Smoke? No Information not available 08/31/2022 Do You Feel Stressed (tense, Restless, Nervous, Or Anxious, Or Unable To Sleep At Night)? [id number] Information not available 08/31/2022 Do You Use Any Illicit Or Recreational Drugs? No [email or web address] Information not available 06/12/2020 Do You Use Sunscreen Routinely? Yes Information not available 08/31/2022 Have You Used IV Drugs? No Information not available 08/31/2022 Sex: Unknown Functional Status Question Answer Note LastModified by Organization D etails LastModified Time Are you able to walk? YESWOREST Information not available 08/31/2022 What is your exercise level? Moderate Information not available 08/31/2022 Mental Status None recorded. Family History Nothing Reported. Medical History Condition Response Allergies (Food, seasonal, environmental ) N Other N Drug/Latex Allergies/Reactions N Blood Transfusion N Breast Cancer N Dermatologic Disorders N Lung Disease N Defects or Inherited Disease N Breast Problem N Gestational Diabetes N Hematologic disorders N Anesthesia Complications N History of STI N Deep Vein Thrombosis N Polycystic ovary syndrome N Anxiety Disorder N Autoimmune disease N Arthritis N Polyps N Infertility N Acid Reflux (GERD) N History of abnormal pap N Cancer N Varicosities N Stroke N Neurologic/Epilepsy N Endometriosis N High Cholesterol Y Fibromyalgia N Headaches N Kidney Disease N Heart Problems N Thyroid Problems N Kidney or Bladder Problems N GI Problems N Eating Disorder N Anemia N Art (IVF or FET) N Psychiatric Illness N Ovarian Cancer N Diabetes N Pulmonary (TB, Asthma) N Hepatitis/Liver Disease N No Past Medical History N Eczema N Urinary Tract Infection N Abuse/Domestic Violence N Asthma N Trauma/Violence N Depression/ depression N Heart Disease N Pre-Eclampsia N Hypertension N Osteoporosis N Thrombophilias N Gynecological History Statement/Question Response Abnormal Pap N Date of Last Mammogram Date of LMP 06/13/2018 N On BCP's at Conception? Y STIs/STDs N Was last menstrual period normal Y HPV Vaccine N Colposcopy Duration of Flow (days) 4 Current Control Method Tubal Ligat ion Age at First Child 31 Date of Last Colonoscopy Frequency of Cycle (Q days) 26 Sexually Active? Y Date of DEXA bone scan Age of first menstrual cycle 13 Date of Last Pap Smear 10/11/2023 Sexual Problems? N LMP Unknown 04/01/2019 N Obstetrics History GPAL:G 4 P 3 0 1 3 Type Value Full Term 3 Spontaneous 1 Living 3 Total 4 Past Encounters Encounter ID Performer Location Encounter Start Date Encounter Closed Date Diagnosis/Indication Diagnosis SNOMED-CT Code Diagnosis ICD10 Code Diagnosis Note [id number] Khadijah Gilliam MD [place] [address] [address] 06/12/2020 09:41:58 06/12/2020 14:39:10 Gynecologic examination 98814762 Z01.419 Atrophic vaginitis 76629 000 N95.2 Lesion of vulva 69553018 6 N90.89 [id number] Khadijah Gilliam MD [place] [address] [address] 06/25/2020 17:35:04 06/26/2020 01:00:48 Lesion of vulva 934679016 N90.89 Fissure in skin 88139423 R23.4 [id number] Khadijah Gilliam MD [place] [address] [address] 08/19/2021 16:45:32 08/22/2021 11:41:45 Atrophic vaginitis 01867204 N95.2 Gynecologi c examination 35984053 Z01.419 Psoriasis of vulva 41203 4003 L40.9 Mixed anxi ety and depressive disorder 138244040 F41.8 [id number] SPEEDY Lee [place] [address],[email or web address] [place] [address] 08/31/2022 16:21:37 09/02/2022 16:51:23 Gynecologic examination 27535170 Z01.419 Take Calcium with Vitamin D 12-1500mg daily. Do monthly self breast exams. It is advised to get annual flu shot in the fall and she could obtain at [facility] or [facility] care clinic. If you haven't received the Tdap vaccine in the last 10 years you should obtain one as well. Have mammogram yearly, bone density every 2-3 years and colonoscop y every 5-10 years depending on findings and history. Engage in daily exercise of low impact aerobic exercise 45-60 minutes 4-5 times weekly. Avoid tobacco and illicit drugs as well as using moderation with alcohol intake less than 1-2 8 oz beverages daily. This lifestyle behavior pattern will lead to less health conditions and longer life span. If BMI greater than 25 weight watchers or dietary consult advised. Questions have been answered. Patient appears to understand instructio ns, but if you have any further questions call or respond to this email WWEpostmen opausalno hx of abnormal papslast pap 2020 - normalpap updated todaymammo gram order givencolon oscopy UTDUTD with PCP BP precaution s discussed. No symptoms. To notify PCP of BP. Check BP at home. ED precaution s discussed. Screening for malignant neoplasm of breast 725790739 Z12.39 Psoriasis of vulva 36564 4003 L40.9 itching/ir ritation throughout vulva - worsening over the last 1 year. Vulvar biopsy done in 2020 showed psoriasis. She stopped using the estrace cream, uses steroid ointment PRN. Wears daily panty liner, uses honey pot vaginal soap. Anal sphincter repair in 2001, leaks stool often.vulv ar care guidelines discussed - d/c use of scented soaps and productsst rict routine of crisco twice daily - use as lubricatio n with ICsteroid ointment BID x 2 weeks, then nightly x 2 weeksresta rt estrace cream (R/B/A discussed) 3 x per weekRTC for vulvar check in 4 weeks Time spent in visit is a total of 40 mins with at least 50% of visit consisting of counseling and review of plan of care. Atrophic vulva 950377689 N90.5 Atrophic vaginitis 28431 000 N95.2 [id number] SPEEDY Lee [place] [address],[place] [address] 10/01/2022 16:35:39 10/01/2022 17:05:42 Psoriasis of vulva 422318701 L40.9 Doing so much better!con tinue with crisco BIDestrace cream 2-3 times per weeksteroi d ointment 2-3 times per week at night x 4 weeks - then can decrease to just PRN useRTC for f/u in 4 months or sooner if needed Time spent in visit is a total of 18 mins with at least 50% of visit consisting of counseling and review of plan of care. Atrophic vulva 434936543 N90.5 Mixed anxi ety and depressive disorder 936026811 F41.8 refills sentprecau tions discussed Atrophic vaginitis 20392 000 N95.2 [id number] SPEEDY Lee [place] [address],[place] [address] 10/11/2023 15:10:10 10/11/2023 17:08:32 Gynecologic examination 93271805 Z01.419 WWEpostmen opausalpap updateddec lined STI screenmamm ogram - scheduled per ptcolonosc opy UTDUTD with PCPBP precaution s reviewed, encouraged PCP f/u Do monthly self breast exams.It is advised to get annual flu shot in the fall and she could obtain at local pharmacy. If you haven't received the Tdap vaccine in the last 10 years you should obtain one as well.Have mammogram yearly and stay up to date on colon cancer screening. Engage in regular exercise. Avoid tobacco and illicit drugs. This lifestyle behavior pattern will lead to less health conditions and longer life span. If BMI greater than 25 dietary consult advised.Qu estions have been answered. Postmenopa usal bleeding 87244786 N95.0 Pelvic u/s ordereddis cussed may be d/t irritation /dryness/a trophy but recommend pelvic u/s as next stepRTC for pelvic u/s and f/u Vaginitis 62408571 N76.0 rx sent for BV, vaginitis panel sent, vulvar care guidelines discussed Vaginal dryness 83095098 N89.8 Menopausal flushing 1984 77131 N95.1 Briefly discussed management optionswil l discuss further at f/u appt Atrophic vulva 684815271 N90.5 uses betamethas one PRN for vulvar psoriasis along with vaginal estrogen creamrefil ls sent, r/b/a reviewed Time spent in visit is a total of 30 mins with at least 50% of visit consisting of counseling and review of plan of care. Atrophic vaginitis 89246 000 N95.2 [id number] Nils Jane MD [facility] [address],[place] [address] 10/12/2023 15:53:23 10/12/2023 16:44:20 Postmenopausal bleeding 79842209 N95.0 [id number] Nils Jane MD [facility] [address],[place] [address] 10/28/2023 15:15:51 10/28/2023 22:04:37 [id number] Nils Jane MD [place] [address],[place] [address] 10/29/2023 12:19:38 10/30/2023 10:12:22 Screening procedure 83405318 Z13.9 Postmenopa usal bleeding 63773398 N95.0 this patient is a 4-year-old female with postmenopa usal bleeding. We agreed to perform hysterosco py D&C. She understand s the risks, benefits, and alternativ es. She has completed the informed consent process and is ready to proceed. Health Concerns Section Related Observation LastModified by Organization Detai ls LastModified Time None Recorded Concern Status LastModified by Organization Details LastModified Time None Recorded Advance Directives Directive N: Payers Encounter Date Sequence Insurance Name Policy Number Policy Richardson Covered Member ID Richardson Member ID Guarantor Name 10/01/2022 1 [facility] [id number] [place] [id number] Azalia Cristina 10/11/2023 1 [facility] [id number] [place] [id number] Azalia [place] 10/12/2023 1 [facility] [id number] Azalia Cristina [id number] Azalia [place] 10/28/2023 1 [facility] [id number] Azalia [place] [id number] Azalia [place] 10/29/2023 1 [facility] [id number] Azalia Cristina [id number] Azalia [place] Notes Date Note Type Note Provider Name and Address Organization Details Recorded Time 3 text/html 57yopresents for f/u on vulvar irritationdoing SO much better!no longer having itching or irritationusing crisco twice dailyestrace cream 3 x per weekand steroid ointment nightly needs refills of her citalopram - doing well at current dose and desires to continue SPEEDY Lee [address], [place], [address], [facility] 10/01/2022 17:04:57 4 text/html Annual Environmental Monitoring Technician Post-MenopausalReported bypatient.Menopausal Symptoms:hot flashes;inadequacy of lubrication of vaginal mucosa Vaginal Bleeding:post menopausal bleeding Urinary Symptoms:no hematuria; no incontinence; no nocturia; no urinary frequency Vulva:no genital lesion; no vulvar atrophy Vagina:no vaginal atrophy;foul-smelling Breast:no breast lump; no nipple discharge; no breast pain Sexual Complaints:no sexual complaints Psychological Symptoms:no depression; no anxiety Preventive Measures:encourage regular mammograms starting age 40; encourage self breast examination; encourage regular exerciseNotes:58yo WWEpostmenopausallast pap 08/2022 : nilm, HPV (-)mammogram - has scheduledcolonoscopy UTD Vulvar biopsy done in 2020 showed psoriasisuses betamethasone PRNhas not been using the vaginal estrogenoften will have dryness/irritation/itchin gnoticed vaginal bleeding a few months ago after using the vaginal estrogen x 1 day, no bleeding sincefishy odor and discharge for the past few days hot flashes/night sweats for the past 5-6 years Heydi perry, [facility] 10/12/2023 11:11:15 4 text/html this patient is a 58-year-old female with postmenopausal bleeding who presents for endometrial biopsy. The endometrial biopsy failed. She could not tolerate the procedure. The cervix was stenotic and very difficult to traverse. We agreed to hysteroscopy D and C in the operating room. The patient understands the procedure. The procedure was described to the patient in great detail. the patient also understands the risks. The risks were also explained in detail. She understands that injuries May occur during surgery. She understands these injuries can result in hospitalization, more surgery, and severe illness. She understands there is risk of hemorrhage and infection. Nils Jane MD [address], [place], [address], [facility] 10/29/2023 21:16:12 OBGyn Episode Ob Episode Information Episode Created Date Number of Fetuses Patient Bloodtype Patient rh Status Prepregnancy Weight lbs Domestic Partner Domestic Partner Phone Father Name Slabber Status 06/13/19 21 1 CLOSED Fetus Data First Name Last Name Admitted to NICU Weight (g) Sex Living Outcome Pediatric Complications Fetus ID Race Codes Race Delivery Type 3798.83 3 M Full Term 9053 Primary Harvey Calculation Initial Harvey Date Initial Exam Date Initial Exam Provider Initial Ultrasound Date Last Menstrual Period Date Ultra Sound Weeks Gestation 0 Eighteen To Twenty Week Harvey Update Ultra Sound Date Fundal Height At Umbil Quickening Date Ultra Sound Latest Weeks Gestation Final Harvey Confirmed By Final Harvey Confirmed Date Final Harvey Date Ultra Sound Latest Days Gestation 0 0 Menstrual History Last Menstrual Date Menses Monthly On Bcp Conception Prior Menses Frequency Hcg Plus Date Menarche Onset Age Delivery Information Delivery Date Delivery Type Labor Anesthesia Weeks Gestation Incision Type Labor Labor Length Hrs Delivered By Post Complications Tubal Sterilization Discharge Date Comments 9 39 Discharge Information Feeding Method Contraceptive Method Maternal HG B and HCT Levels Ob Episode Information Episode Created Date Number of Fetuses Patient Bloodtype Patient rh Status Prepregnancy Weight lbs Domestic Partner Domestic Partner Phone Father Name Slabber Status 06/13/19 21 1 CLOSED Fetus Data First Name Last Name Admitted to NICU Weight (g) Sex Living Outcome Pediatric Complications Fetus ID Race Codes Race Delivery Type 3543.46 0704 F Full Term 9055 Primary Harvey Calculation Initial Harvey Date Initial Exam Date Initial Exam Provider Initial Ultrasound Date Last Menstrual Period Date Ultra Sound Weeks Gestation 0 Eighteen To Twenty Week Harvey Update Ultra Sound Date Fundal Height At Umbil Quickening Date Ultra Sound Latest Weeks Gestation Final Harvey Confirmed By Final Harvey Confirmed Date Final Harvey Date Ultra Sound Latest Days Gestation 0 0 Menstrual History Last Menstrual Date Menses Monthly On Bcp Conception Prior Menses Frequency Hcg Plus Date Menarche Onset Age Delivery Information Delivery Date Delivery Type Labor Anesthesia Weeks Gestation Incision Type Labor Labor Length Hrs Delivered By Post Complications Tubal Sterilization Discharge Date Comments 1 38 Discharge Information Feeding Method Contraceptive Method Maternal HG B and HCT Levels Ob Episode Information Episode Created Date Number of Fetuses Patient Bloodtype Patient rh Status Prepregnancy Weight lbs Domestic Partner Domestic Partner Phone Father Name Slabber Status 06/13/19 21 1 CLOSED Fetus Data First Name Last Name Admitted to NICU Weight (g) Sex Living Outcome Pediatric Complications Fetus ID Race Codes Race Delivery Type 4110.45 0704 F Full Term 9054 Vaginal Delivery Harvey Calculation Initial Harvey Date Initial Exam Date Initial Exam Provider Initial Ultrasound Date Last Menstrual Period Date Ultra Sound Weeks Gestation 0 Eighteen To Twenty Week Harvey Update Ultra Sound Date Fundal Height At Umbil Quickening Date Ultra Sound Latest Weeks Gestation Final Harvey Confirmed By Final Harvey Confirmed Date Final Harvey Date Ultra Sound Latest Days Gestation 0 0 Menstrual History Last Menstrual Date Menses Monthly On Bcp Conception Prior Menses Frequency Hcg Plus Date Menarche Onset Age Delivery Information Delivery Date Delivery Type Labor Anesthesia Weeks Gestation Incision Type Labor Labor Length Hrs Delivered By Post Complications Tubal Sterilization Discharge Date Comments 6 41 Discharge Information Feeding Method Contraceptive Method Maternal HG B and HCT Levels Ob Episode Information Episode Created Date Number of Fetuses Patient Bloodtype Patient rh Status Prepregnancy Weight lbs Domestic Partner Domestic Partner Phone Father Name Slabber Status 06/13/19 21 1 CLOSED Fetus Data First Name Last Name Admitted to NICU Weight (g) Sex Living Outcome Pediatric Complications Fetus ID Race Codes Race Delivery Type , Spontane ous [id number] Harvey Calculation Initial Harvey Date Initial Exam Date Initial Exam Provider Initial Ultrasound Date Last Menstrual Period Date Ultra Sound Weeks Gestation 0 Eighteen To Twenty Week Harvey Update Ultra Sound Date Fundal Height At Umbil Quickening Date Ultra Sound Latest Weeks Gestation Final Harvey Confirmed By Final Harvey Confirmed Date Final Harvey Date Ultra Sound Latest Days Gestation 0 0 Menstrual History Last Menstrual Date Menses Monthly On Bcp Conception Prior Menses Frequency Hcg Plus Date Menarche Onset Age Delivery Information Delivery Date Delivery Type Labor Anesthesia Weeks Gestation Incision Type Labor Labor Length Hrs Delivered By Post Complications Tubal Sterilization Discharge Date Comments Discharge Information Feeding Method Contraceptive Method Maternal HG B and HCT Levels
[2024-07-05 19:30] LABS: Basophils Absolute Auto 0.1 K/mm3 (0.0-0.1); Basophils Percent Auto 0.8 % (0.2-1.2); Eosinophils Absolute Auto 0.1 K/mm3 (0-0.3); Eosinophils Percent Auto 1.1 % (0-4.4); Hematocrit 40.6 % (37.0-47.0); Hemoglobin 12.9 g/dL (12.0-15.0); Immature Granulocyte Absolute 0.02 K/mm3 (0.00-0.031); Immature Granulocyte Percent A 0.3 % (0-0.5); Lymphocytes Absolute Auto 1.98 K/mm3 (0.9-3.2); Lymphocytes Percent Auto 27.8 % (18.3-44.2); Mean Corpuscular HGB Conc 31.8 g/dl (32-36); Mean Corpuscular Hemoglobin 28.7 pg (26-34); Mean Corpuscular Volume 90.2 fl (80-100); Mean Platelet Volume 10.4 fl (7.4-10.4); Monocytes Absolute Auto 0.5 K/mm3 (0.1-0.6); Neutrophils Absolute Auto 4.5 K/mm3 (1.3-6.7); Platelet Count Result 326 k/mm3 (150-375); Red Cell Distribution Width 12.6 % (11.5-14.5); White Blood Count 7.1 K/mm3 (4.5-10.0)
[2024-07-05 19:49] LABS: Alanine Aminotransferase 44 U/L (6-35); Albumin Level 4.7 g/dL (3.5-5.1); Alkaline Phosphatase 113 U/L (38-126); Anion Gap 9 mmol/L (4-12); Aspartate Amino Transferase 36 U/L (14-36); Bilirubin,Total 0.3 mg/dL (0.2-1.3); Blood Urea Nitrogen 22 mg/dL (7-17); Calcium 9.8 mg/dL (8.4-10.2); Carbon Dioxide 29 mmol/L (22-30); Chloride 104 mmol/L (98-107); Estimated Glomerular Filt Rate 51; Glucose 113 mg/dL (65-110); Potassium 4.5 mmol/L (3.4-5.0); Sodium 142 mmol/L (137-145)
[2024-07-05 19:50] LABS: Iron 62 ug/dL (37-170)
[2024-07-05 20:22] LABS: Percent Iron Saturation 20 % (20-50); Thyroid Stimulating Hormone Reflex 0.216 uIU/mL (0.465-4.68)
[2024-07-05 20:26] LABS: Vitamin D 25 Hydroxy 36.1 ng/mL
[2024-07-05 20:47] LABS: Free T4 Free Thyroxine Reflex 1.39 ng/dL (0.78-2.19)
[2024-07-05 21:42] LABS: Total Triiodothyronine (T3) 1.35 NG/ML (0.97-1.69)
== END 2024-07-05 15:03 | disposition home or self-care (01) ==
LOC: ANHGOSHLAB 15:02
PROVIDERS: PCP Family Medicine; Visit Provider Family Medicine
DX: R53.83 Other fatigue (principal)
CPT/HCPCS: 36415; 80053; 82306; 82607; 82728; 83540; 83550; 84439; 84443; 84480; 85025

== ENCOUNTER 2024-07-10 15:26 | Outpatient (CLI) | payer OTHER, SELFPAY ==
--- NOTE | ~2024-07-10 | MM_ITS ---
EXAMINATION: MM screening [facility] BI w jolene HISTORY: Screening mammogram TECHNIQUE: Craniocaudal and mediolateral oblique 3-D tomosynthesis images were obtained and synthetic 2-D images were generated. CAD analysis was submitted and interpreted. COMPARISON: 01/23/2023, 10/30/2021, 05/04/2019, 04/05/2018 BREAST PARENCHYMAL COMPOSITION:Not Dense. There are scattered areas of fibroglandular density. FINDINGS: No suspicious mass, calcification, or architectural distortion are identified in either joaquim ast to suggest malignancy. There has been no suspicious interval change. IMPRESSION: No mammographic evidence of malignancy. Recommend routine screening mammography in one year. BI-RADS Category 1: Negative Reviewed, dictated and finalized at location .
--- OUTSIDE RECORDS SUMMARY | 2024-07-10 15:29 | XMS_ITS | Clinical Summary ---
Author Organization [facility] Address [address] [place] [id number] Care Team Providers Care Public Information Relations Manager Name Role Phone Oswaldo Waldron MD Primary Care Provider [phone] Allergies Active Allergy Reactions Criticality Noted Date [...] on file Legal Sex Female 2:16 AM [employer] Gender Identity Not on file Sexual Orientation [...] season) 2023 02/07/2021, 05/29/2020, 05/08/2020 Influenza Vaccine (Season Ended) 2024 01/14/2019, 12/08/2014 Pneumococcal vaccine <65 Aged Out No longer eligible based on patient's age to complete this topic Insurance [id number] [id number] Care Teams Public Information Relations Manager Relationship Specialty Start Date End Date Oswaldo Waldron MD [address] [place] [address] PCP - General Internal Medicine 11/06/20
--- OUTSIDE RECORDS SUMMARY | 2024-07-10 15:29 | XMS_ITS | Referral Summary ---
Author Organization [facility] Address [address] [place] [id number] Care Team Providers Care Grey Goods Marker Name Role Phone Oswaldo Waldron MD Primary Care Provider [phone] Allergies Active Allergy Reactions Criticality Noted Date [...] on file Legal Sex Female 2:16 AM [employer] Gender Identity Not on file Sexual Orientation [...] of Treatment Not on file Insurance [employer] Care Teams Grey Goods Marker Relationship Specialty Start Date End Date Oswaldo Waldron MD [address] [place] [address] PCP - General Internal Medicine 11/06/20
--- OUTSIDE RECORDS SUMMARY | 2024-07-10 15:30 | XMS_ITS | Data Portability ---
Author Organization [facility] [place] Address [address] [place] [address] Care Team Providers Care Test Automation Architect Name Role Phone BISI FRANCOIS Primary Care Provider [phone] Assessment Encounter Date Assessment Date Assessment LastModified by Organization Details LastModified Time 10/11/2023 10/11/2023 Annual gynecological exam performed. Patient will come back in a year unless there are new symptoms. Not available 10/11/2023 15:12:06 Plan of Treatment Reminders Order Date Submit Date Provider Last Modified By Organization Details Last Modified Time Details Appointments None recorded. Lab test, urine 2023 024 harman [place], [address], [address], [place], [address], 12:30:58 Referral None recorded. Procedures None recorded. Surgeries None recorded. Imaging US, pelvis 2023 024 fannie [place], [address], [address], [place], [address], 20:47:29 US, transvagina l 2023 024 fannie [place], [address], [address], [place], [address], 20:47:29 US, pelvis, complete 2023 024 VITA Chaparro[address], [address], [place], [address], 5 05:01:19 Medication Orders Estrace 0.01% (0.1 mg/gram) vaginal cream 2023 024 [facility]16, [address], [place], [place], [id number], 4 16:59:05 betamethaso ne dipropionat e 0.05 % topical ointment 2023 024 [facility] #80024, [address], [place], [place], [id number], 4 16:57:47 metronidazo le 500 mg tablet 2023 024 [facility] #72426, [address], [place], [place], [id number], 4 12:26:55 betamethaso ne dipropionat e 0.05 % topical ointment 2022 023 [facility] #77995, [address], [place], [place], [id number], 3 17:04:20 Estrace 0.01% (0.1 mg/gram) vaginal cream 2022 023 [facility] #04033, [address], [place], [place], [id number], 3 17:03:19 citalopram 40 mg tablet 2022 023 [facility] #84917, [address], [place], [place], [id number], 3 17:02:44 Patient TargetsNo targets recorded. Patient InstructionsNo instructions recorded. Reason for Referral None Reported. Results Created Date Observation Date Name Description Value Unit Range Abnormal Flag Note LastModifiedBy Organization Detail LastModifiedTime 10/29/19 24 10/29/2023 pregn raffi test, urine HCG negati ve Not Available [facility] [address], [place], [address], 10/29/2023 12:30:46 10/12/19 24 10/12/2023 , pelvi s No observ ation record ed. [email or web address] [facility] [address], [place], [address], 10/12/2023 18:03:07 10/12/19 24 10/12/2023 US, trans vagin al No observ ation record ed. [email or web address] [facility] [address], [place], [address], 10/12/2023 18:03:17 10/12/19 24 10/12/2023 US, pelvi s No observ ation record ed. [email or web address] [address], [place], [address], 10/29/2023 15:43:46 Result Notes None recorded. 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 14:00:15 Body mass index 30+ - obesity 040546068 Active 2020 Khadijah Gilliam MD [address], [place], [address], [facility] 14:00:29 Psoriasi s of vulva 602472797 Active 2021 Khadijah Gilliam MD [address], [place], [address], [facility] 2 17:05:04 Atrophic vaginiti s 39185532 Active 2021 Khadijah Gilliam MD [address], [place], [address], [facility] 2 17:05:21 Subacute and chronic vaginiti s 417885936 Completed 201706/12/2020 Subacute and chronic vaginiti s;Record ed Elsewher e: No [facility]: EHR Sales Operations Associate carrillo: N Practi ce ID: [id number] Fredy lable Time: 10:45:00 AM Khadijah Gilliam MD [address], [place], [address], [facility] [address] 10:06:[address] Concept Completed 201906/12/2020 Encntr for hardboard grinder exam (general ) (routine ) w/o abn findings ;Recorde d Elsewher e: No Locat ion[facility]: EHR Sales Operations Associate carrillo: N Practi ce ID: [id number] Fredy lable Time: 08:15:00 AM Khadijah Gilliam MD [address], [place], [address], [facility] [address] 10:06:[address] Concept Completed 201706/12/2020 Encntr for general adult medical exam w/o abnormal findings ;Recorde d Elsewher e: No Locat ion: [facility] S ource: EHR Sales Operations Associate carrillo: N Practi ce ID: [id number] Fredy lable Time: 08:30:00 AM Khadijah Gilliam MD [address], [place], [address], [facility] 1 10:06:32 Screenin g for malignan t neoplasm of rectum Completed 201806/12/2020 Encounte r for screenin g for malignan t neoplasm of rectum;R ecorded Elsewher e: No [facility]at ion[facility] S ource: EHR Sales Operations Associate carrillo: N Harshilti ce ID: [id number] Fredy lable Time: 08:45:00 AM Khadijah Gilliam MD [address], [place], [address], [facility] 1 10:06:30 Superfic ial pain on intercou rse 330261150 Completed 201806/12/2020 Superfic ial dyspareu pankaj;Elian rded Elsewher e: No Locat ion: [facility] S ource: EHR Sales Operations Associate carrillo: N Harshilti ce ID: [id number] Fredy lable Time: 08:45:00 AM Khadijah Gilliam MD [address], [place], [address], [facility] 1 10:06:39 Menopaus e present 378836008 Active 2017 Menopaus al and female climacte estuardo states;R ecorded Elsewher e: No Locat ion: [facility] S ource: EHR Sales Operations Associate carrillo: N Harshilti ce ID: [id number] Fredy lable Time: 10:45:00 AM Not Available [facility] 0 21:23:32 Problem Notes None recorded. Procedures Surgical History Date Name Laterality Status Provider Name and Address Organization Details Recorded Time 4 Date of Last Pap Smear completed Lori Portillo [facility] 10/29/2023 12:27:04 2 bilateral cataract surgery completed Heydi Park [facility] 10/11/2023 15:21:25 1 Vulvar Biopsy completed Khadijah Gilliam MD [address], [place], [address], [facility] 06/25/2020 17:59:03 0 completed Anabelle Reyes [facility] 08/31/2022 17:12:42 2 Repair of anal sphincter completed Ramona Corea [facility] 06/12/2020 09:17:16 ligation of bilateral fallopian tubes completed Heydi Park [facility] 10/11/2023 15:21:20 Imaging Results Imaging Date Name Status LastModified by Organization Details LastModified Time 10/12/2023 US, pelvis completed [email or web address] [facility] [address], [place], [address], 10/12/2023 18:03:07 10/12/2023 US, transvaginal completed [email or web address] [facility] Laniervirandy e [address], [place], [address], 10/12/2023 18:03:17 10/12/2023 US, pelvis completed [email or web address] [address], [place], [address], 10/29/2023 15:43:46 Procedure Notes None recorded. Medical Equipment None Reported. Allergies Allergen ID Allergen Name Allergen Category Reaction Reaction Severity Criticality Documentation Date Start Date Code Code System Note Provider Name and Address Organization Details Recorded Time 90460 Product containin g penicilli n (product) medicatio n anaphylax is severe Not available 08/31/2022 06633 8001 SNOMED Anabelle perry [facility], [...] Prescrib ed Elsewher e: Yes Loca tion: [facility] odify By: amkgabriele ball DateTime : [...] ed Elsewher e: Yes Loca tion: [facility] M odify By: christian ball [...] Prescrib ed Elsewher e: No Locat ion: [facility] L[facility] M odify By: simon doshi DateTime : 12/25/19 18 10:45:00 AM Not Available Not Available Not Available [employer] COVID-19 Ag Self Test kit TEST DIRECTED TODAY 10/01 completed Not Available Not Available Not Available Vitals Date Recorded Body height Body mass index (BMI) Body weight Systolic blood pressure Diastolic blood pressure Provider Name and Address Organization Details Last Updated DateTime 10/01/2022 162.56 cm 32.8 kg/m2 19240.14 g 119 mm[Hg] 77 mm[Hg] Jenna Solorzano [facility] 3 16:51:20 Date Recorded Body height Body mass index (BMI) Body weight Systolic blood pressure Diastolic blood pressure Systolic blood pressure Diastolic blood pressure Provider Name and Address Organization Details Last Updated DateTime 4 162.56 cm 35.7 kg/m2 20915.2 1 g 154 mm[Hg] 96 mm[Hg] 138 mm[Hg] 88 mm[Hg] Heydi Xavier [facility] 4 09:10:26 Date Recorded Body height Body mass index (BMI) Body weight Systolic blood pressure Diastolic blood pressure Provider Name and Address Organization Details Last Updated DateTime 10/29/2023 162.56 cm 35 kg/m2 78089.84 g 140 mm[Hg] 85 mm[Hg] Lori Bandar [facility] 4 12:26:16 Social History Question Answer Notes LastModified by Organizat ion Details LastModified Time Tobacco Smoking Status Never Smoker Sonia perry, [facility] 10/01/2022 16:36:00 Do You Have An Advance Directive? No Information n ot available 08/31/2022 Are You Blind Or Do [...] Or The Highest Degree You Have Received? [id number] Information not available 10/11/2023 Are There Any [...] Information not available 08/31/2022 Do You Use Sunscreen Routinely? Yes Information not available 08/31/2022 Have You Used IV Drugs? No Information not available 08/31/2022 Sex: Unknown Functional Status Question Answer Note LastModified by Organizat ion Details LastModified Time Do you use any illicit or recreational drugs? No [email or web address] Information not available 06/12/2020 What is your level of alcohol consumption? None Information not available 08/31/2022 Are you able to walk? 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 Moderate Information not available 08/31/2022 Mental Status Question Answer Note LastModified by Organization D etails LastModified Time Do you feel stressed (tense, restless, nervous, or anxious, or unable to sleep at night)? [id number] Information not available 08/31/2022 Family History Nothing Reported. Medical History Condition [...] SNOMED-CT Code Diagnosis ICD10 Code Diagnosis Note [id number] Khadijah Gilliam MD [facility] [address] [address] 06/12/2020 09:41:58 06/12/2020 14:39:10 Gynecologic examination 82739454 Z01.419 Atrophic vaginitis 54258 000 N95.2 Lesion of vulva 82298753 6 N90.89 [id number] Khadijah Gilliam MD [facility] [address] [address] 06/25/2020 17:35:04 06/26/2020 01:00:48 Lesion of vulva 926528182 N90.89 Fissure in skin 81778700 R23.4 [id number] Khadijah Gilliam MD [facility] [address],[place] [address] 08/19/2021 16:45:32 08/22/2021 11:41:45 Atrophic vaginitis 09647526 N95.2 Gynecologi c examination 83749348 Z01.419 Psoriasis of vulva 51876 4003 L40.9 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 Do monthly self breast exams. It is advised to get annual flu shot in the fall and she could obtain at [facility] or [facility] clinic. If you haven't received the Tdap [...] discussed. Screening for malignant neoplasm of breast 617398529 Z12.39 Psoriasis of vulva 11479 4003 L40.9 itching/ir ritation throughout vulva - [...] review of plan of care. Atrophic vulva 640825230 N90.5 Atrophic vaginitis 90028 000 N95.2 [id number] SPEEDY Lee [facility] [address],[place] [address] 10/01/2022 16:35:39 10/01/2022 17:05:42 Psoriasis of vulva 564898804 L40.9 Doing so much better!con tinue with [...] review of plan of care. Atrophic vulva 635520061 N90.5 Mixed anxi ety and depressive disorder 444908918 F41.8 refills sentprecau tions discussed Atrophic vaginitis 59343 000 N95.2 [id number] SPEEDY Lee [facility] [address],[place] [address] 10/11/2023 15:10:10 10/11/2023 17:08:32 Gynecologic examination 14379778 Z01.419 WWEpostmen opausalpap updateddec lined STI screenmamm [...] estions have been answered. Postmenopa usal bleeding 67698619 N95.0 Pelvic u/s ordereddis cussed may be d/t irritation /dryness/a trophy but recommend pelvic u/s as next stepRTC for pelvic u/s and f/u Vaginitis 69608808 N76.0 rx sent for BV, vaginitis panel sent, vulvar care guidelines discussed Vaginal dryness 62491925 N89.8 Menopausal flushing 1984 54462 N95.1 Briefly discussed management optionswil l discuss further at f/u appt Atrophic vulva 365822605 N90.5 uses betamethas one PRN for vulvar psoriasis along with vaginal estrogen creamrefil ls sent, r/b/a reviewed Time spent in visit is a total of 30 mins with at least 50% of visit consisting of counseling and review of plan of care. Atrophic vaginitis 43508 000 N95.2 [id number] Nils Jane MD [facility] [address],[place] [address] 10/12/2023 15:53:23 10/12/2023 16:44:20 Postmenopausal bleeding 58294177 N95.0 [id number] Nils Jane MD [facility] [address],[place] [address] 10/28/2023 15:15:51 10/28/2023 22:04:37 [id number] Nils Jane MD [facility] [address],[place] [address] 10/29/2023 12:19:38 10/30/2023 10:12:22 Screening procedure 75946792 Z13.9 Postmenopa usal bleeding 82872416 N95.0 this patient is a 4-year-old female [...] Richardson Member ID Guarantor Name 10/01/2022 1 [facility] [id number] Azalia Cristina [id number] [facility] 10/11/2023 1 [facility] [id number] Az[facility] [id number] Azalia [facility] 10/12/2023 1 [facility] [id number] Azalia [facility] [id number] Azalia [facility] 10/28/2023 1 [facility] [id number] Az[facility] [id number] Azalia Cristina 10/29/2023 1 [facility] [id number] Azalia Cristina [id number] Azalia Cristina Notes Date Note Type Note Provider Name and Address Organization Details Recorded Time 3 text/html 57yopresents for f/u on vulvar irritationdoing SO much better!no longer having itching or irritationusing crisco twice dailyestrace cream 3 x per weekand steroid ointment nightly needs refills of her citalopram - doing well at current dose and desires to continue SPEEDY Lee [address], [place], [address], [facility] 10/01/2022 17:04:57 4 text/html Annual Calendering Supervisor Post-MenopausalReported bypatient.Menopausal Symptoms:hot flashes;inadequacy of lubrication of [...] infection. Nils Jane MD [address], [place], [address], [facility] 10/29/2023 21:16:12 OBGyn Episode Ob Episode Information Episode Created Date Number of Fetuses Patient Bloodtype Patient rh Status Prepregnancy Weight lbs Domestic Partner Domestic Partner Phone Father Name First Cook Status 06/13/19 21 1 CLOSED Fetus Data [...] Domestic Partner Domestic Partner Phone Father Name First Cook Status 06/13/19 21 1 CLOSED Fetus Data [...] Domestic Partner Domestic Partner Phone Father Name First Cook Status 06/13/19 21 1 CLOSED Fetus Data [...] Domestic Partner Domestic Partner Phone Father Name First Cook Status 06/13/19 21 1 CLOSED Fetus Data [...] Post Complications Tubal Sterilization Discharge Date Comments 7 Discharge Information Feeding Method Contraceptive Method Maternal HG B and HCT Levels
--- OUTSIDE RECORDS SUMMARY | 2024-07-10 15:30 | XMS_ITS | Clinical Summary ---
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
--- OUTSIDE RECORDS SUMMARY | 2024-07-10 15:30 | XMS_ITS | Clinical Summary ---
Author Organization [facility] Address [address] [place] [address] Care Team Providers Care Barrel Rifler Operator Name Role Phone Kati Cordero MD Unavailable [phone] Source Comments [facility],non-owned Affiliates and Associated Physician Practices is amultiple site organization consisting of ambulatory clinics and hospital sitesin [place], [place], [place] and [place]. This disclosure is being madepursuant to the Care Everywhere program and may not contain all information available regarding this patient. Last updated 17.[facility] Allergies Active Allergy Reactions Criticality Noted Date [...] on file Legal Sex Female 1:52 PM MEDICAL CENTER REPRESENTATIVE Gender Identity Not on file Sexual Orientation Not on file Last Filed Vital Signs Vital Sign Reading Time Taken Comments Blood Pressure 110/68 04/03/2018 2:41 PM MEDICAL CENTER REPRESENTATIVE Pulse 121 04/03/2018 2:41 PM MEDICAL CENTER REPRESENTATIVE Temperature 37.7 C (99.8 F) 04/03/2018 2:41 PM MEDICAL CENTER REPRESENTATIVE Respiratory Rate 16 04/03/2018 2:41 PM MEDICAL CENTER REPRESENTATIVE Oxygen Saturation 96% 04/03/2018 2:41 PM MEDICAL CENTER REPRESENTATIVE Inhaled Oxygen Concentration - - Weight 81.6 kg (180 lb) 04/03/2018 2:41 PM MEDICAL CENTER REPRESENTATIVE Height 165.1 cm (5' 5 ) 04/03/2018 2:41 PM MEDICAL CENTER REPRESENTATIVE Body Mass Index 29.95 04/03/2018 2:41 PM MEDICAL CENTER REPRESENTATIVE Plan of Treatment Health Maintenance Due Date [...] ICD9 [facility] ACCOUNT BILL Comment:V72.31 ; Routine obstetrician and gynaecologist ecological examination Performed by [facility] ACCOUNT BILL Comment:Consuelo nguyen, Director Paid Media (ASCP) Comment . [facility] ACCOUNT BILL Note [...] 3:12 AM CDT Source.............Cervical;Endocervical LMP / Prev Treat...HSY=[id number] No. of containers..01 CYTYC Thin Prep Vial Resulting Agency Comment [facility] [address] [id number] Kati Cordero MD LAB - PATHOLOGY/CYTOLOGY VICTORINO PARSON Final Result [facility] ACCOUNT BILL [address] [place] [address] from Last 3 Months or Most Recently Relevant to Health Maintenance Insurance [facility] Member Subscriber Plan / Payer (Ef fective for All Dates) Name:Xander Evans Relation to Subscriber:Self Name:Xander Evans Payer ID:[id number] (NAIC) Type:O Address: [address] [place] [id number] Care Teams Barrel Rifler Operator Relationship Specialty [place] [address] [place] [address] Canvas Worker Obstetrics and Gynecology 10/19/12
== END 2024-07-10 15:27 | disposition home or self-care (01) ==
LOC: ANHIMG 15:27
PROVIDERS: PCP Family Medicine; Visit Provider Nurse Practitioner
DX: Z12.31 Encounter for screening mammogram for malignant neoplasm of breast (principal)
CPT/HCPCS: 77063; 77067

== ENCOUNTER 2024-08-07 14:41 | Outpatient (CLI) | payer OTHER, SELFPAY ==
--- NOTE | 2024-08-07 15:00 | ECG_ITS ---
Test Date: 2024-08-07 15:07:19 Measurements Intervals Brooks Rate: 77 P: 5 AZ: 154 QRS: 31 QRSD: 97 T: 43 QT: 387 QTc: 439 Interpretive Statements SINUS RHYTHM LOW QRS VOLTAGE IN PRECORDIAL LEADS BORDERLINE ST-T WAVE ABNORMALITY- ANTEROLATERAL LEADS BASELINE ARTIFACT- I, II, AVR BORDERLINE ECG No previous ECG available for comparison Electronically Signed On 08-07-2024 15:20:48 CDT by Jw Mota D.O.
--- OUTSIDE RECORDS SUMMARY | 2024-08-07 15:53 | XMS_ITS | Data Portability ---
Author Organization [facility] [place] Address [address] [place] [address] [place] [address] Care Team Providers Care Pipe Smoking Machine Offbearer Name Role Phone BISI FRANCOIS Primary Care Provider Assessment Encounter Date Assessment Date Assessment LastModified by Organization Details LastModified Time 10/11/2023 10/11/2023 Annual gynecological exam performed. Patient will come back in a year unless there are new symptoms. Not available 10/11/2023 15:12:06 Plan of Treatment Reminders Order Date Submit Date Provider Last Modified By Organization Details Last Modified Time Details Appointments None recorded. Lab test, urine 2023 024 harman [place], [address], [place], [address], 12:30:58 Referral None recorded. Procedures None recorded. Surgeries None recorded. Imaging US, pelvis 2023 024 fannie [place], [address], [address], [place], [address], 20:47:29 US, transvagina l 2023 024 fannie [place], [address], [address], [place], [address], 20:47:29 US, pelvis, complete 2023 024 VITA [address], [address], [place], [address], 5 05:01:19 Medication Orders Estrace 0.01% (0.1 mg/gram) vaginal cream 2023 024 [id number], [address], [place], [place], [id number], 4 16:59:05 betamethaso ne dipropionat e 0.05 % topical ointment 2023 024 [facility]293, [address], [place], [place], [id number], 4 16:57:47 metronidazo le 500 mg tablet 2023 024 [facility]883, [address], [place], [place], [id number], 4 12:26:55 betamethaso ne dipropionat e 0.05 % topical ointment 2022 023 [facility]26842, [address], [place], [place], [id number], 3 17:04:20 Estrace 0.01% (0.1 mg/gram) vaginal cream 2022 023 [facility]20385, [address], [place], [place], [id number], 3 17:03:19 citalopram 40 mg tablet 2022 023 [facility]04206, [address], [place], [place], [id number], 3 17:02:44 Patient TargetsNo targets recorded. Patient InstructionsNo instructions recorded. Reason for Referral None Reported. Results Created Date Observation Date Name Description Value Unit Range Abnormal Flag Note LastModifiedBy Organization Detail LastModifiedTime 09/01/19 23 08/31/2022 IMAGE GUIDE D PAP AND HPV REGAR DLESS image guided Pap, HPV regardless of Pap result SEE RESULT S BELOW CASE REPOR T: Cytol ogy Gynec ologi merry Repor t Case: [id number] Autho loeg elias Provi rosy: Selma Mcarthur, HARISH Colle cted: 08/31 1643 Order ing Locat ion: [place] Patho logy Recei sánchez: 09/02 0807 First Scree n: Anahy Sawant Speci men: Madison polanco Pap - Image d, Cervi x STATE MENT OF ADEQU ACY: Satis facto ry for evalu ation Trans forma tion zone compo nent prese nt FINAL DIAGN OSIS: Negat gracy for Intra epith elial Lesflaquito monteiro or Zena merritt (NIL) . Elect alek baugh rowan d by Anahy Sawant ica on 023 at 4:41 PM ----- ----- ----- ----- ----- ----- ----- ----- ----- ----- ----- ----- ----- ----- ----- ----- ----- ---- HPV RESUL TS: HPV mRNA E6/E7 : No HPV mRNA Detec kimberlee NOTE: This high risk HPV mRNA assay detec ts fourt een high- risk HPV types (16, 18, 31, 33, 35, 39, 45, 51, 52, 56, 58, 59, 66, 68) witho ut diffe renti ation . COMME NT: This speci men was revie wed by a Cytot echno logis t and/o r Patho logis t (as indic ated in this repor t) after evalu ation using the Thinp rep Imagi ng Syste m. CLINI MERRY INFOR MATIO N: Menst rual Statu s: LMP (if appli cable ): Clini merry Histo ry/Pr eviou s Pap: Type of Neopl fan (if appli cable ): Signi fican t Clini merry Findi ngs: Other Histo ry: Hormo angie (if appli cable ): PAP EDUCA GERALD L NOTE: The Pap Test is a scree sherri test with an inher ent false negat gracy rate. Liqui d-bas ed sampl ing may decre ase, but will not elimi leena, false negat gracy resul ts. A negat gracy resul t does not precl ude the prese nce and/o r devel opmen t of disea se, since the prese nce of abnor mal cells in the sampl e depen ds on the locat ion of the lesio n and sampl ing techn ique. Ronak nued regul ar scree sherri is the best metho d of cance r preve ntion . If repor kimberlee cytol ogic findi ng do not corre late with physi merry and/o r histo rical findi ngs, furth er inves tigat ion is recom velia d, as clini cuate warra nted. Not Available [facility] (Lab) [address], [place], [address], 09/02/2022 17:44:50 10/11/19 24 10/11/2023 VAGIN ITIS/ VAGIN OSIS, DNA PROBE shelli sp. detection, direct probe Negati ve negati ve Not Available [facility] (Lab) [address] [place], [address], 10/17/2023 06:32:50 10/11/19 24 10/11/2023 VAGIN ITIS/ VAGIN OSIS, DNA PROBE gardnerella vag. detection, direct probe Negati ve negati ve Not Available [facility] (Lab) [address] [place], [address], 10/17/2023 06:32:50 10/11/19 24 10/11/2023 VAGIN ITIS/ VAGIN OSIS, DNA PROBE trichomonas vag. detection, direct probe Negati ve negati ve Not Available [facility] (Lab) [address], [place], [address], 10/17/2023 06:32:50 10/11/19 24 10/11/2023 IMAGE GUIDE D PAP AND HPV REGAR DLESS image guided Pap, HPV regardless of Pap result SEE RESULT S BELOW CASE REPOR T: Cytol ogy Gynec ologi merry Repor t Case: [id number] Autho oleg elias Provi rosy: Selma Mcarthur, HARISH Colle cted: 10/10 1621 Order ing Locat ion: [place] Patho logy Recei sánchez: 10/11 0751 First Scree n: Monika Harvey ret, CT Speci men: Madison andradeg Pap - Image d, Cervi x STATE MENT OF ADEQU ACY: Satis facto ry for evalu ation Trans forma tion zone compo nent canno t be defin itive ly ident ified due to the prese nce of atrop hy or other hormo nal george es ----- ----- ----- ----- ----- ----- ----- ----- ----- ----- ----- ----- ----- ----- ----- ----- ----- ---- FINAL DIAGN OSIS: Negat gracy for Intra epith elial Malka monteiro or Zena merritt (NIL) . Atrop hic gisele meehan rn. Elect alek donahue d by Monika Harvey ret, CT on 2023 at 5:29 AM ----- ----- ----- ----- ----- ----- ----- ----- ----- ----- ----- ----- ----- ----- ----- ----- ----- ---- HPV RESUL TS: HPV mRNA E6/E7 : No HPV mRNA Detec kimberlee NOTE: This high risk HPV mRNA assay detec ts fourt een high- risk HPV types (16, 18, 31, 33, 35, 39, 45, 51, 52, 56, 58, 59, 66, 68) witho ut diffe renti ation . COMME NT: This speci men was revie wed by a Cytot echno logis t and/o r Patho logis t (as indic ated in this repor t) after evalu ation using the Thinp rep Imagi ng Syste m. CLINI MERRY INFOR MATIO N: Menst rual Statu s: LMP (if appli cable ): Clini merry Histo ry/Pr eviou s Pap: Type of Neopl fan (if appli cable ): Signi fican t Clini merry Findi ngs: Other Histo ry: Hormo angie (if appli cable ): PAP EDUCA GERALD L NOTE: The Pap Test is a scree sherri test with an inher ent false negat gracy rate. Liqui d-bas ed sampl ing may decre ase, but will not elimi leena, false negat gracy resul ts. A negat gracy resul t does not precl ude the prese nce and/o r devel opmen t of disea se, since the prese nce of abnor mal cells in the sampl e depen ds on the locat ion of the lesio n and sampl ing techn ique. Ronak nued regul ar scree sherri is the best metho d of cance r preve ntion . If repor kimberlee cytol ogic findi ng do not corre late with physi merry and/o r histo rical findi ngs, furth er inves tigat ion is recom velia d, as clini cuate doe nted. Not Available [facility] (Lab) [address], [place], [address], 10/17/2023 06:32:50 10/29/19 24 10/29/2023 pregn raffi test, urine HCG negati ve Not Available [place] [address], [place], [address], 10/29/2023 12:30:46 10/12/19 24 10/12/2023 US, pelvi s No observ ation record ed. [email or web address] [place] [address], [place], [address], 10/12/2023 18:03:07 10/12/19 24 10/12/2023 US, trans vagin al No observ ation record ed. [email or web address] [place] [address], [place], [address], 10/12/2023 18:03:17 10/12/19 24 10/12/2023 US, pelvi s No observ ation record ed. [email or web address] [address], [place], [address], 10/29/2023 15:43:46 07/12/19 25 07/10/2024 imagi ng/di agnos tic resul t No observ ation record ed. [facility] [address], [place], [address], 07/23/2024 15:30:02 Result Notes None recorded. 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 1 14:00:15 Body mass index 30+ - obesity 778977774 Active 2020 Khadijah Gilliam MD [address], [place], [address], [place] [facility] 1 14:00:29 Psoriasi s of vulva 949402735 Active 2021 Khadijah Gilliam MD [address], [place], [address], [facility] 2 17:05:04 Atrophic vaginiti s 82386028 Active 2021 Khadijah Gilliam MD [address], [place], [address], [facility] 2 17:05:21 Subacute and chronic vaginiti s 490168197 Completed 201706/12/2020 Subacute and chronic vaginiti s;Record ed Elsewher e: No Locat ion: Jose love [facility] S ource: EHR Butt Welder carrillo: N Practi ce ID: 0001 Fredy lable Time: 10:45:00 AM Khadijah Gilliam MD [address], [place], [address], [facility] [address] 10:06:[address] Concept Completed 201906/12/2020 Encntr for denture technician exam (general ) (routine ) w/o abn findings ;Recorde d Elsewher e: No Locat ion: Jose love [facility] S ource: EHR Butt Welder carrillo: N Practi ce ID: 0001 Fredy lable Time: 08:15:00 AM Khadijah Gilliam MD [address], [place], [address], [facility] 10:06:[address] Concept Completed 201706/12/2020 Encntr for general adult medical exam w/o abnormal findings ;Recorde d Elsewher e: No Locat ion: Jose love [facility] S ource: EHR Butt Welder carrillo: N Practi ce ID: 0001 Fredy lable Time: 08:30:00 AM Khadijah Gilliam MD [address], [place], [address], [facility] 1 10:06:32 Screenin g for malignan t neoplasm of rectum Completed 201806/12/2020 Encounte r for screenin g for malignan t neoplasm of rectum;R ecorded Elsewher e: No Locat ion: Jose love [facility] S ource: EHR Butt Welder carrillo: N Practi ce ID: 0001 Fredy lable Time: 08:45:00 AM Khadijah Gilliam MD [address], [place], [address], [facility] 1 10:06:30 Superfic ial pain on intercou rse 312832997 Completed 201806/12/2020 Superfic ial dyspareu pankaj;Elian rded Elsewher e: No Locat ion: [facility] S ource: EHR Butt Welder carrillo: N Practi ce ID: 0001 Fredy lable Time: 08:45:00 AM Khadijah Gilliam MD [address], [place], [address], [facility] 1 10:06:39 Menopaus e present 240701559 Active 2017 Menopaus al and female climacte estuardo states;R ecorded Elsewher e: No Locat ion: [facility] S ource: EHR Butt Welder carrillo: N Harshilti ce ID: 0001 Fredy lable Time: 10:45:00 AM Not Available [facility] 0 21:23:32 Problem Notes None recorded. Procedures Surgical History Date Name Laterality Status Provider Name and Address Organization Details Recorded Time 4 Date of Last Pap Smear completed Lori Portillo [facility] 10/29/2023 12:27:04 2 bilateral cataract surgery completed Heydi Park [facility] 10/11/2023 15:21:25 1 Vulvar Biopsy completed Khadijah Gilliam MD [address], [place], [address], [facility] 06/25/2020 17:59:03 0 completed Anabelle Reyes [facility] 08/31/2022 17:12:42 2 Repair of anal sphincter completed Ramona Corea [facility] 06/12/2020 09:17:16 ligation of bilateral fallopian tubes completed Heydi Park [facility] 10/11/2023 15:21:20 Imaging Results None recorded. Procedure Notes None recorded. Medical Equipment None Reported. Allergies Allergen ID Allergen Name Allergen Category Reaction Reaction Severity Criticality Documentation Date Start Date Code Code System Note Provider Name and Address Organization Details Recorded Time 74140 Product containin g penicilli n (product) medicatio n anaphylax is severe Not available 08/31/2022 36829 8001 SNOMED Anabelle Reyes [facility] 17:12:29 Medications Name Sig Start Date [...] Prescrib ed Elsewher e: Yes Loca tion: [facility] odify By: [email or web address] Brendan ncounter DateTime : 03/23/19 18 08:30:00 AM Not [...] route every day 10/01 completed [facility] Yes Loca tion: [facility] odify By: lsshara Love ncounter DateTime : 03/23/19 18 08:30:00 AM Not [...] day with food 02/08 completed Prescrib ed Cristal e: No Locat ion: [facility] M odify By: jlgreen Josseline r DateTime : 12/25/19 18 10:45:00 AM Not Available Not Available Not Available [employer] COVID-19 Ag Self Test kit TEST DIRECTED TODAY 10/01 completed Not Available Not Available Not Available Vitals Date Recorded Body height Body mass index (BMI) Body weight Systolic blood pressure Diastolic blood pressure Provider Name and Address Organization Details Last Updated DateTime 10/01/2022 162.56 cm 32.8 kg/m2 60986.14 g 119 mm[Hg] 77 mm[Hg] Jenna Solorzano [facility] 3 16:51:20 Date Recorded Body height Body mass index (BMI) Body weight Systolic blood pressure Diastolic blood pressure Systolic blood pressure Diastolic blood pressure Provider Name and Address Organization Details Last Updated DateTime 4 162.56 cm 35.7 kg/m2 67627.2 1 g 154 mm[Hg] 96 mm[Hg] 138 mm[Hg] 88 mm[Hg] Heydi Park [facility] 4 09:10:26 Date Recorded Body height Body mass index (BMI) Body weight Systolic blood pressure Diastolic blood pressure Provider Name and Address Organization Details Last Updated DateTime 10/29/2023 162.56 cm 35 kg/m2 32461.84 g 140 mm[Hg] 85 mm[Hg] Lori Portillo [facility] 4 12:26:16 Social History Question Answer Notes LastModified by Organizat ion Details LastModified Time Tobacco Smoking Status Never Smoker Sonia Yanes vicky, [facility] 10/01/2022 16:36:00 Do You Have An [...] Or The Highest Degree You Have Received? 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 Moderate Information not available 08/31/2022 Mental Status Question Answer Note LastModified by Organization D etails LastModified Time Do you feel stressed (tense, restless, nervous, or anxious, or unable to sleep at night)? [id number] Information not available 08/31/2022 Family History Nothing Reported. Medical History Condition Response Allergies (Food, seasonal, environmental ) N Other N Breast Cancer N Drug/Latex Allergies/Reactions N Blood Transfusion N Dermatologic Disorders N Lung Disease N Defects or Inherited Disease N Breast Problem N Gestational Diabetes N Hematologic disorders N Anesthesia Complications N History of STI N Deep Vein Thrombosis N Polycystic ovary syndrome N Anxiety Disorder N Autoimmune disease N Arthritis N Infertility N Polyps N Acid Reflux (GERD) N History of abnormal pap N Cancer N Stroke N Varicosities N Neurologic/Epilepsy N Endometriosis N High Cholesterol Y Headaches N Fibromyalgia N Kidney Disease N Heart Problems N Kidney or Bladder Problems N Thyroid Problems N GI Problems N Eating Disorder [...] SNOMED-CT Code Diagnosis ICD10 Code Diagnosis Note [id number] Khadijah Gilliam MD [place] [address],[place] [address] 06/12/2020 09:41:58 06/12/2020 14:39:10 Gynecologic examination 44377619 Z01.419 Atrophic vaginitis 26028 000 N95.2 Lesion of vulva 71812444 6 N90.89 [id number] Khadijah Gilliam MD [place] [address],[place] [address] 06/25/2020 17:35:04 06/26/2020 01:00:48 Lesion of vulva 581721704 N90.89 Fissure in skin 53938892 R23.4 [id number] Khadijah Gilliam MD [place] [address],[place] [address] 08/19/2021 16:45:32 08/22/2021 11:41:45 Atrophic vaginitis 33883740 N95.2 Gynecologi c examination 93086919 Z01.419 Psoriasis of vulva 77061 4003 L40.9 Mixed anxi ety and depressive disorder 294844283 F41.8 [id number] SPEEDY Lee [place] [address],[place] [address] 08/31/2022 16:21:37 09/02/2022 16:51:23 Gynecologic examination 85060373 Z01.419 Take Calcium with Vitamin D 12-1500mg daily. Do monthly self breast exams. It is advised to get annual flu shot in the fall and she could obtain at [facility] or [facility] care clinic. If you haven't received the [...] questions call or respond to this email WWEpvidal rogers hx of abnormal papslast pap 2019 - normalpap updated todaymammo gram order givencolon oscopy UTDUTD with PCP BP precaution s discussed. No symptoms. To notify PCP of BP. Check BP at home. ED precaution s discussed. Screening for malignant neoplasm of breast 210849462 Z12.39 Psoriasis of vulva 30422 4003 L40.9 itching/ir ritation throughout vulva - [...] review of plan of care. Atrophic vulva 750962620 N90.5 Atrophic vaginitis 76810 000 N95.2 [id number] SPEEDY Lee [place] [address] [address] 10/01/2022 16:35:39 10/01/2022 17:05:42 Psoriasis of vulva 323948571 L40.9 Doing so much better!con tinue with [...] review of plan of care. Atrophic vulva 270804053 N90.5 Mixed anxi ety and depressive disorder 412344998 F41.8 refills sentprecau tions discussed Atrophic vaginitis 06311 000 N95.2 [id number] SPEEDY Lee [place] [address] [address] 10/11/2023 15:10:10 10/11/2023 17:08:32 Gynecologic examination 32639468 Z01.419 WWEpostmen opausalpap updateddec lined STI screenmamm [...] estions have been answered. Postmenopa usal bleeding 98933170 N95.0 Pelvic u/s ordereddis cussed may be d/t irritation /dryness/a trophy but recommend pelvic u/s as next stepRTC for pelvic u/s and f/u Vaginitis 58863960 N76.0 rx sent for BV, vaginitis panel sent, vulvar care guidelines discussed Vaginal dryness 48058250 N89.8 Menopausal flushing 1984 16128 N95.1 Briefly discussed management optionswil l discuss further at f/u appt Atrophic vulva 645268175 N90.5 uses betamethas one PRN for vulvar psoriasis along with vaginal estrogen creamrefil ls sent, r/b/a reviewed Time spent in visit is a total of 30 mins with at least 50% of visit consisting of counseling and review of plan of care. Atrophic vaginitis 77726 000 N95.2 [id number] Nils Jane MD [place] [address],[facility] [place] [address] 10/12/2023 15:53:23 10/12/2023 16:44:20 Postmenopausal bleeding 98976615 N95.0 [id number] Nils Jane MD [place] [address],[place] [address] 10/28/2023 15:15:51 10/28/2023 22:04:37 [id number] Nils Jane MD [place] [address],[place] [address] 10/29/2023 12:19:38 10/30/2023 10:12:22 Screening procedure 14884060 Z13.9 Postmenopa usal bleeding 21032192 N95.0 this patient is a 4-year-old female [...] Richardson Member ID Guarantor Name 10/01/2022 1 [facility] [id number] Azalia Cristina [id number] Azalia Cristina 10/11/2023 1 [facility] [id number] Azalia Cristina [id number] Azalia Cristina 10/12/2023 1 [facility] [id number] Azalia Cristina [id number] Azalia Cristina 10/28/2023 1 [facility] [id number] Azalia Luling [id number] Azalia Luling 10/29/2023 1 [facility] [id number] Azalia Evans [id number] Azalia Evans Notes Date Note Type Note Provider Name and Address Organization Details Recorded Time 3 text/html 57yopresents for f/u on vulvar irritationdoing SO much better!no longer having itching or irritationusing crisco twice dailyestrace cream 3 x per weekand steroid ointment nightly needs refills of her citalopram - doing well at current dose and desires to continue SPEEDY Lee [address], [place], [address], [facility] 10/01/2022 17:04:57 4 text/html Annual Cinder Worker Post-MenopausalReported bypatient.Menopausal Symptoms:hot flashes;inadequacy of lubrication of [...] for the past 5-6 years Heydi perry, [facility] 10/12/2023 11:11:15 4 text/html this patient [...] infection. Nils Jane MD [address], [place], [address], [facility] 10/29/2023 21:16:12 OBGyn Episode Ob Episode Information Episode Created Date Number of Fetuses Patient Bloodtype Patient rh Status Prepregnancy Weight lbs Domestic Partner Domestic Partner Phone Father Name Housekeeping Supervisor Hotel Status 06/13/19 21 1 CLOSED Fetus Data [...] Domestic Partner Domestic Partner Phone Father Name Housekeeping Supervisor Hotel Status 06/13/19 21 1 CLOSED Fetus Data [...] Domestic Partner Domestic Partner Phone Father Name Housekeeping Supervisor Hotel Status 06/13/19 21 1 CLOSED Fetus Data [...] Domestic Partner Domestic Partner Phone Father Name Housekeeping Supervisor Hotel Status 06/13/19 21 1 CLOSED Fetus Data [...]
--- OUTSIDE RECORDS SUMMARY | 2024-08-07 15:53 | XMS_ITS | Clinical Summary ---
Author Organization [facility] Address [address] [place] [address] Care Team Providers Care Facilities Planner Name Role Phone Kati Cordero MD Unavailable [phone] Source Comments [facility],non-owned Affiliates and Associated Physician Practices is amultiple site organization consisting of ambulatory clinics and hospital sitesin [place], [place], [place] and [place]. This disclosure is being madepursuant to the Care Everywhere program and may not contain all information available regarding this patient. 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 Gender Identity Not on file Sexual Orientation Not on file Last Filed Vital Signs Vital Sign Reading Time Taken Comments Blood Pressure 110/68 04/03/2018 2:41 PM STOCK ASSOCIATE Pulse 121 04/03/2018 2:41 PM STOCK ASSOCIATE Temperature 37.7 C (99.8 F) 04/03/2018 2:41 PM STOCK ASSOCIATE Respiratory Rate 16 04/03/2018 2:41 PM STOCK ASSOCIATE Oxygen Saturation 96% 04/03/2018 2:41 PM STOCK ASSOCIATE Inhaled Oxygen Concentration - - Weight 81.6 kg (180 lb) 04/03/2018 2:41 PM STOCK ASSOCIATE Height 165.1 cm (5' 5) 04/03/2018 2:41 PM STOCK ASSOCIATE Body Mass Index 29.95 04/03/2018 2:41 PM STOCK ASSOCIATE Plan of Treatment Health Maintenance Due Date [...] ICD9 [facility] ACCOUNT BILL Comment:V72.31 ; Routine photography colorist ecological examination Performed by [facility] ACCOUNT BILL Comment:Consuelo nguyen, Screen Printer Helper (ASCP) Comment . [facility] ACCOUNT BILL Note [...] 3:12 AM CDT Source.............Cervical;Endocervical LMP / Prev Treat...EXX=[id number] No. of containers..01 CYTYC Thin Prep Vial Resulting Agency Comment [facility] [address] [id number] Kati Cordero MD LAB - PATHOLOGY/CYTOLOGY [facility] Final Result [facility] ACCOUNT BILL [address] [place] [address] from Last 3 Months or Most Recently Relevant to Health Maintenance Insurance [facility] Care Teams Facilities Planner Relationship Specialty [place] [id number] [address] [place] [address] Manager Product Management Obstetrics and Gynecology 10/19/12
--- OUTSIDE RECORDS SUMMARY | 2024-08-07 15:53 | XMS_ITS | Clinical Summary ---
Author Organization 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 Gender Identity Not on file Sexual Orientation Not on file Plan of Treatment Health Maintenance Due Date Last Done Comments Hepatitis C Virus (HCV) Screening 1965 TdaP Immunization 1965 Colonoscopy 08/10/2008 Colorectal Cancer Screening 08/10/2008 Cologuard 08/10/2013 Immunochemical Fecal Occult Blood 08/10/2013 Pneumococcal Immunization (5 0+ years) (1 of 1 - PCV) 08/10/2013 Zoster Immunization (1 of 2) 08/10/2013 SARS-COV-2 Immunization ( - season) 2023 02/07/2021, 05/29/2020, 05/08/2020 Influenza Immunization (Seas on Ended) 2024 12/17/2020, 01/14/2019, 12/08/2014 Respiratory Syncytial Virus (RSV) Immunization (Adult) (1 - 1-dose 75+ series) 08/10/2038 Hepatitis B Immunization Aged Out No longer eligible based on patient's age to complete this topic Human Papillomavirus (HPV) Immunization Aged Out No longer eligible b ased on patient's age to complete this topic Meningococcal Immunization (ACWY) Aged Out No longer eligible b ased on patient's age to complete this topic Rotavirus Immunization Aged Out No lo nger eligible based on patient's age to complete this topic
== END 2024-08-07 14:42 | disposition home or self-care (01) ==
LOC: ANHSURGERY 14:45
PROVIDERS: PCP Family Medicine; Visit Provider Orthopaedic Surgery
DX: Z01.810 Encounter for preprocedural cardiovascular examination (principal); R94.31 Abnormal electrocardiogram [ECG] [EKG]; E78.5 Hyperlipidemia, unspecified
CPT/HCPCS: 93005

== ENCOUNTER 2024-08-14 01:34 | Day surgery (SDC) | payer OTHER, SELFPAY ==
[2024-08-03 14:20] VITALS: BMI 32.5
--- NOTE | 2024-08-03 14:21 | PC.NURSE ---
Report to the Outpatient Waiting Room, entrance under the green pavilion located off [facility], at time _0730_ on date _[id number]_. Planned Procedure Time: _0930_.? Time changes happen often and if your time is changed the preop area will call you the afternoon before. - You and your visitor will be asked to self-screen and do not enter if you have any COVID symptoms. Please call surgeon if you need to reschedule. - A mask is optional within the hospital at this time. Patients may have clear liquids (water, carbonated beverages, clear teas, apple juice) until 3 hours prior to surgery with a maximum of 20 ounces. - No food from midnight until time of surgery and no smoking, or chewing tobacco (or any form of nicotine). No chewing gum, candy or mints. Take only the following medications with a SIP of water on the morning of surgery: ___Citalopram____ DO NOT STOP ANY OF YOUR OTHER PRESCRIPTION MEDICATIONS PRIOR TO SURGERY EXCEPT THE FOLLOWING Hold all vitamins and supplements for 3 days per anesthesiologist. Medications to discontinue per physician Date to take last ykrj___[phone]__ Please no make-up, nail thai, hairspray, perfume, deodorant, or body powder the day of surgery.? No jewelry (including any body piercings) or valuables the day of surgery, leave them at home.? Please take a shower or bath the night before, or the morning of, surgery with an antibacterial soap.? Wear comfortable, loose fitting clothing.? - Jewelry must be removed prior to entering the operating room.? Rings and piercings that are not removed may be cut off. - The hospital will not accept responsibility for valuables.? - Please leave all valuables, including medications, at home the day of surgery. If you are going home after surgery, a licensed dumpcart driver must drive you home.? - NO public transportation without another adult if you receive anesthesia. - We recommend that an adult stay with you for 24 hours following discharge. - We also recommend that you do not drive, make important decision, drink alcoholic beverages, or take any drugs that were not prescribed by your health care provider for at least 24 hours after your discharge time. Follow any additional instructions given to you from your surgeon. Telephone instructions given to __Azalia__and asked if any additional questions and then verbalized understanding. Patient advised to call surgeon office or pre surgery nurse liaison [phone] if any additional questions.
--- NOTE | 2024-08-10 09:03 | P.HP_ITS ---
H&P: HPI History of Present Illness Date/Time: 08/10/24 09:03 Chief Complaint: Patient is knee pain right. She has mechanical catching and locking he has not responded to conservative treatment. Her MRI scan shows a meniscal tear. She would like to consider arthroscopic surgery with partial medial meniscectomy proceed as indicated. Review of Systems Musculoskeletal: Musculoskeletal: Reports arthralgias, Reports joint swelling and Reports stiffness Neurologic: Reports abnormal gait [facility] Past Medical History Medical History Insomnia Severe obesity (BMI 35.0-35.9 with comorbidity) Hx of cataract BMI 35.0-35.9,adult Hyperlipidemia SVT (supraventricular tachycardia) medication controlled Surgical History Surgical History Hx of left knee surgery Previous section meniscus repair History of placement of ear tubes Family History Family History Mother Patient's mother is in good health Father Patient's father is in good health Sibling Patient's brother is in good health Social History Social History Smoking status: Never smoker Second hand tobacco smoke exposure: Yes Alcohol intake: current Substance use: never Substance use type: does not use Do You Feel Safe in your Home?: Yes Lack of Transportation: No Lack of Food: Never True Current Housing: I Have Housing Concerned About Future Housing: No Difficulty Paying Gas/Electric Bills: No Difficulty Paying for Meds: No Currently Unemployed: No Education: Bachelor's Degree Difficulty w/ Childcare or Family Care: No Living arrangements: with family Occupation/Education: occupation 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- [employer] Gender identity (if verbalized by the patient): Female Spiritual care concerns: No Meds Home Medications and Allergies Home Medications ?Medication ?Instructions ?Recorded ?Confirmed ?Type citalopram 40 mg tablet 40 mg PO DAILY 01/14/19 08/03/24 History fluticasone propionate 50 2 spray intranasal DAILY #47.4 mL 09/17/23 08/03/24 Rx mcg/actuation nasal spray,suspension (Allergy Relief (fluticasone)) diltiazem HCl 120 mg 120 mg PO DAILY #90 caps 05/17/24 08/03/24 Rx capsule,extended release 24 hr (Cartia XT) pravastatin 20 mg tablet See Rx Instructions .Route 06/26/24 08/03/24 Rx .COMPLEX #90 tabs trazodone 50 mg tablet See Rx Instructions .Route 06/26/24 08/03/24 Rx .COMPLEX #90 tabs ascorbic acid (vitamin C) 500 mg 500 mg PO DAILY 08/03/24 08/03/24 History tablet,extended release (C-500) calcium carb-ergocalciferol (vit 1 tablet PO DAILY 08/03/24 08/03/24 History D2) 600 mg calcium-200 unit tablet cyanocobalamin (vitamin B-12) 1,000 mcg PO DAILY 08/03/24 08/03/24 History 1,000 mcg tablet (Vitamin B-12) glucosamine-chondroitin 250 mg-200 2 tablet PO DAILY 08/03/24 08/03/24 History mg tablet omega 8-frp-sed-fish oil 1,200 mg 1 cap PO DAILY 08/03/24 08/03/24 History (144 mg-216 mg) capsule (Fish Oil) vitamins A,C,L-xnwp-dmscqf 4,296 2 cap PO DAILY 08/03/24 08/03/24 History mcg-226 mg-90 mg capsule Allergies Allergy/AdvReac Type Severity Reaction Status Date / Time mold Allergy Severe Stopped Verified 08/03/24 14:06 Breathing Penicillins Allergy Severe Stopped Verified 08/03/24 14:06 Breathing milk AdvReac Intermediate Gastrointestinal Verified 08/03/24 14:06 Upset doxycycline AdvReac Mild rash Verified 08/03/24 14:06 iodine AdvReac Mild Rash Verified 08/03/24 14:06 Exam Narrative: On exam she is tender on the right knee medially. She has mechanical catching and locking when I manipulate her knee. She has a positive Vandana's sign and pain to palpation manipulation. Neurologically she is intact. She walks with an antalgic gait. She has pain with any motion. Eyes: General: appearance normal, both eyes and all related structures Neck: Neck: supple Resp: Effort & Inspection: normal respiratory effort Cardio: Rate: regular rate Rhythm: regular rhythm Radiology Reports: Comments: Magnetic Resonance Report Signed Patient: Azalia Evans EXAMINATION: MR knee RT wo con DATE: 07/03/2024 14:26 INDICATION: Right knee pain TECHNIQUE: Magnetic resonance imaging (MRI) of the right knee was performed without intravenous contrast. Sequences included coronal PD-weighted FSE, coronal PD-weighted FS FSE, sagittal T2-weighted FSE, sagittal PD-weighted FS FSE and axial PD weighted fat saturated FSE. COMPARISON: None. FINDINGS: Medial compartment: Complex tear involving the body and posterior horn of the medial meniscus which has both horizontal, radial and vertical longitudinal components. There is deep chondral ulceration involving greater than 50% the cartilage thickness along the central weightbearing medial femoral condyle with less severe partial thickness chondral ulceration at the anterior weightbearing medial femoral condyle. Small focus of subarticular edema-like signal change medial rim at the junction of the anterior and central weightbearing medial femoral condyle. Mild partial- thickness cartilage loss without degenerative subchondral changes along the medial and posterior margins of the medial tibial plateau. Lateral compartment: Lateral meniscus is normal. Articular cartilage is normal. Patellofemoral compartment: Extensive full thickness chondral ulceration with Cortical irregularity and subarticular edema-like and cystlike changes at the central aspect of the patellar apical ridge, the inferior half of the lateral patellar facet and the superolateral aspect of the lateral trochlea. Deep chondral fissure with minimal underlying subarticular edema-like signal change at the trochlear groove and inferolateral aspect of the medial trochlea. Partial-thickness cartilage loss without degenerative subchondral changes at the medial patellar facet. Ligaments and tendons: Anterior and posterior cruciate ligaments are normal. The medial collateral ligament and fibular collateral ligament complex are normal. The extensor mechanism is normal. The visualized medial and lateral hamstring tendons as well as the iliotibial band are normal. Fluid: Small knee joint effusion. No loose osteochondral bodies identified. Small Swann's cyst measuring 4.1 cm craniocaudally and up to 1.9 x 1.2 cm in maximal orthogonal dimensions. Osseous/other: Bone alignment is normal. No fracture or pathologic marrow replacing process. IMPRESSION: 1. Complex tear of the body and posterio r horn of the medial meniscus. 2. Severe patellofemoral osteoarthritis with regions of high-grade chondromalacia at the lateral patella and lateral trochlea. 3. Mild osteoarthritis medial compartmen t with predominantly moderate grade chondromalacia. 4. Small right knee joint effusion and s mall Swann's cyst. Reviewed, dictated and finalized at location A. Electronically signed by Bobbi Guy. Knee X-Ray 06/13/24 Knee MRI 07/03/24 Assessment and Plan Assessment and plan (1) Acute medial meniscus tear of right knee: Code(s): S83.241A - Other tear of medial meniscus, current injury, right knee, initial encounter Status: Acute Assessment and Plan: Patient has meniscal tear right knee. She has failed conservative treatment like to proceed with arthroscopic intervention. I discussed treatment options with her in detail including the risks, benefits, limitations, and alternatives in detail. Will proceed per her request. She understands and agrees. She knows that she has degenerative changes particularly in the patellofemoral joint may continue to have knee pain even after the surgery.
[2024-08-14] VITALS (10 sets, daily range): BP systolic 103–137; BP diastolic 65–89; PULSE 69–89; RESP 11–18; TEMP 36.2–36.6; O2SAT 94–100
--- OUTSIDE RECORDS SUMMARY | 2024-08-14 01:38 | XMS_ITS | Referral Summary ---
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 [employer] Care Teams Codifier Relationship Specialty Start Date End Date Oswaldo Waldron MD [address] [place] [address] PCP - General Internal Medicine 11/06/20
--- OUTSIDE RECORDS SUMMARY | 2024-08-14 01:39 | XMS_ITS | Continuity of Care Document ---
Author Organization [facility] Address [address] [place] [address] Phone Care Team Providers Care Executive Assistant To President Name Role Phone Kervin Montoya Unavailable Unavailable Procedures Procedure Date Manual Therapy Progress Note Neuromuscular Re-Ed Therapeutic Activities Hot or Cold Pack Therapeutic Exercise Therapeutic Activities Manual Therapy Neuromuscular Re-Ed Therapeutic Exercise Hot or Cold Pack Progress Note Therapeutic Activities Neuromuscular Re-Ed Therapeutic Exercise Manual Therapy Hot or Cold Pack Therapeutic Activities Therapeutic Exercise Neuromuscular Re-Ed Hot or Cold Pack Manual Therapy Therapeutic Activities Neuromuscular Re-Ed Hot or Cold Pack Manual Therapy OT Evaluation Low Complexity Therapeutic Activities Neuromuscular Re-Ed Hot or Cold Pack Therapeutic Exercise Manual Therapy Advance Directives Directive Yes / No Effective Date File Name No Information Encounters Encounter Description Practice Location Reason(s) For Visit Diagnoses Date Provider Providers Copied on Encounter [facility], [address], [place], [place], [id number], [place] tel:[phone] [place] No Information 1 Zach Finchyne. . [facility], [address], [place], [place], [id number], tel:[phone] [place] No Information - 1 Zach Finchyne. . Referring Provider: Braulio Martines, [address], [place], [address]. tel:[phone] [facility] [address], [place], [place], [id number], [place] tel:[phone] [place] No Information 1 Zach Finchyne. . Referring Provider: Braulio Martines, [address], [place], [address]. tel:[phone] [facility] [address], [place], [place], [address], [place] tel:[phone] [place] No Information 0 1 Zach Finchyne. . Referring Provider: Braulio Martines, [address], [place], [address]. tel:[phone] [facility], [address], [place], [place], [id number], [place] tel:[phone] [place] No Information May-3 0- 1 Zach Finchyne. . Referring Provider: Braulio Martines, [address], [place], [address]. tel:[phone] [facility], [address], [place], [place], [id number], [place] tel:[phone] [place] No Information May-2 3- 1 Zach Finchyne. . Referring Provider: Braulio Martines, [address], [place], [address]. tel:[phone] [facility], [address], [place], [place], [address], [place] tel:[phone] [place] No Information Redohl Nicole. . Referring Provider: Braulio Martines, [address], [place], [address]. tel:[phone] Family History Family Member Type Diagnosis Age At Onset No Information Payers Payer name Insurance type Covered alliance party ID Victoriano barrios(s) Trish [id number] Social History Type Description Quantity Date Captured Comments Sex Female Smoking Status No Information Chief Complaint And Reason For Visit No Information Reason For Referral Reason For Referral No Information History Of Present Illness Encounter Date Complaint History Of Prese nt Illness No Information Functional Status Date Functional Assessmen t No Information Instructions Date Instruction Additional Infor mation Dietary needs education Related to Overweight Prescribed activity/exercise edu cation Related to Overweight Assessments Type Assessment Date No Information Patient Care Teams Name Effective Dates (start - stop) Status Members No Information
--- OUTSIDE RECORDS SUMMARY | 2024-08-14 01:39 | XMS_ITS | Data Portability ---
Author Organization [facility] [place] Address [address] [place] [address] Care Team Providers Care Block Sorter Name Role Phone BISI FRANCOIS Primary Care [...] recorded. Lab test, urine 2023 024 harman [place], [address], [place], [address], 12:30:58 Referral None recorded. Procedures None recorded. Surgeries None recorded. Imaging US, pelvis 2023 024 fannie [place], [address], [address], [place], [address], 20:47:29 US, transvagina l 2023 024 fannie [place], [address], [address], [place], [address], 20:47:29 US, pelvis, complete 2023 024 VITA Chaparro[address], [address], [place], [address], 5 05:01:19 Medication Orders Estrace 0.01% (0.1 mg/gram) vaginal cream 2023 024 [facility] #88505, [address], [place], [place], [id number], 4 16:59:05 betamethaso ne dipropionat e 0.05 % topical ointment 2023 024 [facility] #30385, [address], [place], [place], [id number], 4 16:57:47 metronidazo le 500 mg tablet 2023 024 [facility] #37531, [address], [place], [place], [id number], 4 12:26:55 betamethaso ne dipropionat e 0.05 % topical ointment 2022 023 [facility] #59316, [address], [place], [place], [id number], 3 17:04:20 Estrace 0.01% (0.1 mg/gram) vaginal cream 2022 023 [facility] #31694, [address], [place], [place], [id number], 3 17:03:19 citalopram 40 mg tablet 2022 023 [facility] #58272, [address], [place], [place], [id number], 3 17:02:44 Patient TargetsNo targets recorded. Patient [...] Repor t Case: [id number] Autho oleg elias Provi rosy: Selma Mcarthur, [...] as clini cuate warra nted. Not Available [facility] (Lab) [address], [place], [address], 09/02/2022 17:44:50 10/11/19 24 10/11/2023 VAGIN ITIS/ VAGIN OSIS, DNA PROBE shelli sp. detection, direct probe Negati ve negati ve Not Available [facility] (Lab) [address] [place], [address], 10/17/2023 06:32:50 10/11/19 24 10/11/2023 VAGIN ITIS/ VAGIN OSIS, DNA PROBE gardnerella vag. detection, direct probe Negati ve negati ve Not Available [facility] (Lab) [address] [place], [address], 10/17/2023 06:32:50 10/11/19 24 10/11/2023 VAGIN ITIS/ VAGIN OSIS, DNA PROBE trichomonas vag. detection, direct probe Negati ve negati ve Not Available [facility] (Lab) [address], [place], [address], 10/17/2023 06:32:50 10/11/19 24 10/11/2023 IMAGE GUIDE [...] as clini cuate doe nted. Not Available [facility] (Lab) [address], [place], [address], 10/17/2023 06:32:50 10/29/19 24 10/29/2023 pregn raffi test, urine HCG negati ve Not Available [place] [address], [place], [address], 10/29/2023 12:30:46 10/12/19 24 10/12/2023 US, pelvi s No observ ation record ed. [email or web address] [place] [address], [place], [address], 10/12/2023 18:03:07 10/12/19 24 10/12/2023 US, trans vagin al No observ ation record ed. [email or web address] [place] [address], [place], [address], 10/12/2023 18:03:17 10/12/19 24 10/12/2023 US, pelvi s No observ ation record ed. [email or web address] Yasmin [address], [place], [address], 10/29/2023 15:43:46 07/12/19 25 07/10/2024 imagi ng/di agnos tic resul t No observ ation record ed. [facility] [address], [place], [address], 07/23/2024 15:30:02 Result Notes None recorded. Problems Name Problem SNOMED Code Status Onset Date Resolution Date Notes Provider Name and Address Organization Details Recorded Time Supraven tricular tachycar bella 7042914 Active 2020 Khadijah Gilliam MD [address], [place], [address], [facility] 1 14:00:15 Body mass index 30+ - obesity 832674723 Active 2020 Khadijah Gilliam MD [address], [place], [address], [facility] 1 14:00:29 Psoriasi s of vulva 808146700 Active 2021 Khadijah Gilliam MD [address], [place], [address], [facility] 2 17:05:04 Atrophic vaginiti s 94683831 Active 2021 Khadijah Gilliam MD [address], [place], [address], [facility] 2 17:05:21 Subacute and chronic vaginiti s 236860883 Completed 201706/12/2020 Subacute and chronic vaginiti s;Record ed Elsewher e: No Locat ion: [facility] S ource: EHR Drum Maker carrillo: N Practi ce ID: 0001 Fredy lable Time: 10:45:00 AM Khadijah Gilliam MD [address], [place], [address], [facility] [address] 10:06:[address] Concept Completed 201906/12/2020 Encntr for windshield wiper repairer exam (general ) (routine ) w/o abn findings ;Recorde d Elsewher e: No Locat ion: [facility] S ource: EHR Drum Maker carrillo: N Practi ce ID: 0001 Fredy lable Time: 08:15:00 AM Khadijah Gilliam MD [address], [place], [address], [facility] 10:06:[address] Concept Completed 201706/12/2020 Encntr for general adult medical exam w/o abnormal findings ;Recorde d Elsewher e: No Locat ion: [facility] S ource: EHR Drum Maker carrillo: N Practi ce ID: 0001 Fredy lable Time: 08:30:00 AM Khadijah Gilliam MD [address], [place], [address], [facility] 1 10:06:32 Screenin g for malignan t neoplasm of rectum Completed 201806/12/2020 Encounte r for screenin g for malignan t neoplasm of rectum;R ecorded Elsewher e: No Locat ion: [facility] S ource: EHR Drum Maker carrillo: N Practi ce ID: 0001 Fredy lable Time: 08:45:00 AM Khadijah Gilliam MD [address], [place], [address], [facility] 1 10:06:30 Superfic ial pain on intercou rse 049720216 Completed 201806/12/2020 Superfic ial dyspareu pankaj;Elian rded Elsewher e: No Locat ion: [facility] S ource: EHR Drum Maker car[place]: N Practi ce ID: 0001 Fredy lable Time: 08:45:00 AM Khadijah Gilliam MD [address], [place], [address], [facility] 1 10:06:39 Menopaus e present 468555028 Active 2017 Menopaus al and female climacte estuardo states;R ecorded Elsewher e: No Locat ion: [facility] S ource: EHR Drum Maker carrillo: N Harshilti ce ID: 0001 Fredy lable Time: 10:45:00 AM Not Available [facility] 0 21:23:32 Problem Notes None recorded. Procedures Surgical History Date Name Laterality Status Provider Name and Address Organization Details Recorded Time 4 Date of Last Pap Smear completed Lori Portillo [facility] 10/29/2023 12:27:04 2 bilateral cataract surgery completed Heydi Park [facility] 10/11/2023 15:21:25 1 Vulvar Biopsy completed Khadijah Gilliam MD [address], [place], [address], [facility] 06/25/2020 17:59:03 0 completed Anabelle Reyes [facility] 08/31/2022 17:12:42 2 Repair of anal sphincter completed Ramona Corea [facility] 06/12/2020 09:17:16 ligation of bilateral fallopian tubes completed Heydi Park [facility] 10/11/2023 15:21:20 Imaging Results None recorded. Procedure Notes None recorded. Medical Equipment None Reported. Allergies Allergen ID Allergen Name Allergen Category Reaction Reaction Severity Criticality Documentation Date Start Date Code Code System Note Provider Name and Address Organization Details Recorded Time 96508 Product containin g penicilli n (product) medicatio n anaphylax is severe Not available 08/31/2022 48800 8001 SNOMED Anabelle Reyes [facility] 17:12:29 Medications Name Sig Start Date [...] Prescrib ed Elsewher e: Yes Loca tion: [facility] odify By: amkuhl Brendan ncounter DateTime : [...] route every day 10/01 completed [facility] Loca tion: [facility] odify By: lsshara Love ncounter DateTime : [...] Prescrib ed Cristal e: No Locat ion: [facility] M odify By: jlgreen Josseline r DateTime [...] Updated DateTime 10/01/2022 162.56 cm 32.8 kg/m2 18157.14 g 119 mm[Hg] 77 mm[Hg] Jenna Solorzano [facility] 3 16:51:20 Date Recorded Body height Body mass index (BMI) Body weight Systolic blood pressure Diastolic blood pressure Systolic blood pressure Diastolic blood pressure Provider Name and Address Organization Details Last Updated DateTime 4 162.56 cm 35.7 kg/m2 75505.2 1 g 154 mm[Hg] 96 mm[Hg] 138 mm[Hg] 88 mm[Hg] Heydi Park [facility] 4 09:10:26 Date Recorded Body height Body mass index (BMI) Body weight Systolic blood pressure Diastolic blood pressure Provider Name and Address Organization Details Last Updated DateTime 10/29/2023 162.56 cm 35 kg/m2 76822.84 g 140 mm[Hg] 85 mm[Hg] Lori Portillo [facility] 4 12:26:16 Social History Question Answer Notes LastModified by Organizat ion Details LastModified Time Tobacco Smoking Status Never Smoker Sonia Yanes vicky, [facility] 10/01/2022 16:36:00 Do You Have An [...] Or The Highest Degree You Have Received? 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 Moderate Information not available 08/31/2022 Mental Status Question Answer Note LastModified by Organization D etails LastModified Time Do you feel stressed (tense, restless, nervous, or anxious, or unable to sleep at night)? [id number] Information not available 08/31/2022 Family History Nothing [...] SNOMED-CT Code Diagnosis ICD10 Code Diagnosis Note [id number] Khadijah Gliliam MD [place] [address],[place] [address] 06/12/2020 09:41:58 06/12/2020 14:39:10 Gynecologic examination 98647624 Z01.419 Atrophic vaginitis 27992 000 N95.2 Lesion of vulva 00855682 6 N90.89 [id number] Khadijah Gilliam MD [place] [address],[place] [address] 06/25/2020 17:35:04 06/26/2020 01:00:48 Lesion of vulva 573433771 N90.89 Fissure in skin 85548239 R23.4 [id number] Khadijah Gilliam MD [place] [address] [address] 08/19/2021 16:45:32 08/22/2021 11:41:45 Atrophic vaginitis 30907335 N95.2 Gynecologi c examination 80800416 Z01.419 Psoriasis of vulva 79544 4003 L40.9 Mixed anxi ety and depressive disorder 539930716 F41.8 [id number] SPEEDY Lee [place] [address],[place] [address] 08/31/2022 16:21:37 09/02/2022 16:51:23 Gynecologic examination 84358676 Z01.419 Take Calcium with Vitamin D 12-1500mg daily. Do monthly self breast exams. It is advised to get annual flu shot in the fall and she could obtain at [facility] or [facility] care clinic. If you haven't received the [...] discussed. Screening for malignant neoplasm of breast 200591504 Z12.39 Psoriasis of vulva 95049 4003 L40.9 itching/ir ritation throughout vulva - [...] review of plan of care. Atrophic vulva 273868339 N90.5 Atrophic vaginitis 05873 000 N95.2 010711 SPEEDY Lee [place] [address] [address] 10/01/2022 16:35:39 10/01/2022 17:05:42 Psoriasis of vulva 358531258 L40.9 Doing so much better!con tinue with [...] review of plan of care. Atrophic vulva 524222133 N90.5 Mixed anxi ety and depressive disorder 890571404 F41.8 refills sentprecau tions discussed Atrophic vaginitis 31916 000 N95.2 629342 SPEEDY Lee [place] [address] [address] 10/11/2023 15:10:10 10/11/2023 17:08:32 Gynecologic examination 89837194 Z01.419 WWEpostmen opausalpap updateddec lined STI screenmamm [...] estions have been answered. Postmenopa usal bleeding 39009188 N95.0 Pelvic u/s ordereddis cussed may be d/t irritation /dryness/a trophy but recommend pelvic u/s as next stepRTC for pelvic u/s and f/u Vaginitis 37780001 N76.0 rx sent for BV, vaginitis panel sent, vulvar care guidelines discussed Vaginal dryness 26721274 N89.8 Menopausal flushing 1984 63558 N95.1 Briefly discussed management optionswil l discuss further at f/u appt Atrophic vulva 416859422 N90.5 uses betamethas one PRN for vulvar psoriasis along with vaginal estrogen creamrefil ls sent, r/b/a reviewed Time spent in visit is a total of 30 mins with at least 50% of visit consisting of counseling and review of plan of care. Atrophic vaginitis 70559 000 N95.2 [id number] Nils Jane MD [place] [address],[facility] [address] 10/12/2023 15:53:23 10/12/2023 16:44:20 Postmenopausal bleeding 05542284 N95.0 437331 Nils Jane MD [place] [address],[place] [address] 10/28/2023 15:15:51 10/28/2023 22:04:37 [id number] Nils Jane MD [place] [address],[place] [address] 10/29/2023 12:19:38 10/30/2023 10:12:22 Screening procedure 74815434 Z13.9 Postmenopa usal bleeding 51700275 N95.0 this patient is a 4-year-old female [...] None Recorded Advance Directives Directive N: Payers Insurance Date Sequence Insurance Name Policy Number Policy Richardson Covered Member ID Richardson Member ID Guarantor Name 11/01/2023 1 [facility] [id number] Azalia Evans [id number] Azalia Evans Notes Date Note Type Note Provider Name and Address Organization Details Recorded Time 3 text/html 57yopresents for f/u on vulvar irritationdoing SO much better!no longer having itching or irritationusing crisco twice dailyestrace cream 3 x per weekand steroid ointment nightly needs refills of her citalopram - doing well at current dose and desires to continue Selma LaMay, WHNP [address], [place], [address], [facility] 10/01/2022 17:04:57 4 text/html Annual Open Hearth Door Liner Post-MenopausalReported bypatient.Menopausal Symptoms:hot flashes;inadequacy of lubrication of [...] for the past 5-6 years Heydi perry, [facility] 10/12/2023 11:11:15 4 text/html this patient [...] infection. Nils Jane MD [address], [place], [address], [facility] 10/29/2023 21:16:12 OBGyn Episode Ob Episode Information Episode Created Date Number of Fetuses Patient Bloodtype Patient rh Status Prepregnancy Weight lbs Domestic Partner Domestic Partner Phone Father Name Linux System Administrator Status 06/13/19 21 1 CLOSED Fetus Data [...] Domestic Partner Domestic Partner Phone Father Name Linux System Administrator Status 06/13/19 21 1 CLOSED Fetus Data [...] Domestic Partner Domestic Partner Phone Father Name Linux System Administrator Status 06/13/19 21 1 CLOSED Fetus Data [...] Domestic Partner Domestic Partner Phone Father Name Linux System Administrator Status 06/13/19 21 1 CLOSED Fetus Data [...]
--- OUTSIDE RECORDS SUMMARY | 2024-08-14 01:39 | XMS_ITS | Clinical Summary ---
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
--- OUTSIDE RECORDS SUMMARY | 2024-08-14 01:39 | XMS_ITS | Clinical Summary ---
Author Organization [facility] Address [address] [place] [address] Care Team Providers Care Seed Cleaner Name Role Phone Unavailable Primary Care Provider Unavailabl e Immunizations Immunization Administration Dates Next Due Covid-19, Mrna, Lnp-s, Pf, 30 Mcg/0.3 Ml Dose (P fizer) 02/07/2021 Social History Tobacco Use Types Packs/Day Years Used Date Smoking Tobacco: Never Assessed Comments Unknown Sex and Gender Information Value Date Recorded Sex Assigned at Not on file Legal Sex Female 12:39 PM PIECE HAND Gender Identity Not on file Sexual Orientation [...]
--- OUTSIDE RECORDS SUMMARY | 2024-08-14 01:39 | XMS_ITS | Clinical Summary ---
Author Organization [facility] Address [address] [place] [address] Care Team Providers Care Agriculture Laborer Name Role Phone Kati Cordero MD Unavailable [phone] Source Comments [facility],non-owned Affiliates and Associated Physician Practices is amultiple site organization consisting of ambulatory clinics and hospital sitesin [place], [place], [place] and [place]. This disclosure is being madepursuant to the Care Everywhere program and may not contain all information available regarding this patient. Last updated 17.[facility] Allergies Active Allergy Reactions Criticality Noted Date [...] on file Legal Sex Female 1:52 PM WEB SERVICES DEVELOPER Gender Identity Not on file Sexual Orientation Not on file Last Filed Vital Signs Vital Sign Reading Time Taken Comments Blood Pressure 110/68 04/03/2018 2:41 PM WEB SERVICES DEVELOPER Pulse 121 04/03/2018 2:41 PM WEB SERVICES DEVELOPER Temperature 37.7 C (99.8 F) 04/03/2018 2:41 PM WEB SERVICES DEVELOPER Respiratory Rate 16 04/03/2018 2:41 PM WEB SERVICES DEVELOPER Oxygen Saturation 96% 04/03/2018 2:41 PM WEB SERVICES DEVELOPER Inhaled Oxygen Concentration - - Weight 81.6 kg (180 lb) 04/03/2018 2:41 PM WEB SERVICES DEVELOPER Height 165.1 cm (5' 5) 04/03/2018 2:41 PM WEB SERVICES DEVELOPER Body Mass Index 29.95 04/03/2018 2:41 PM WEB SERVICES DEVELOPER Plan of Treatment Health Maintenance Due Date [...] ICD9 [facility] ACCOUNT BILL Comment:V72.31 ; Routine lunchroom worker ecological examination Performed by [facility] ACCOUNT BILL Comment:Consuelo nguyen, Analytic Manager (ASCP) Comment . [facility] ACCOUNT BILL Note [...] 3:12 AM CDT Source.............Cervical;Endocervical LMP / Prev Treat...REU=[id number] No. of containers..01 CYTYC Thin Prep Vial Resulting Agency Comment [facility] [address] [id number] Kati Cordero MD LAB - PATHOLOGY/CYTOLOGY VICTORINO PARSON Final Result [facility] ACCOUNT BILL [address] [place] [address] from Last 3 Months or Most Recently Relevant to Health Maintenance Insurance [facility] Care Teams Agriculture Laborer Relationship Specialty Start [place] [address] [place] [address] Dry Plasterer Obstetrics and Gynecology 10/19/12
[2024-08-14] MEDS: ACETAMINOPHEN 500 MG TABLET 1000 MG PO (07:41)
[2024-08-14] MEDS: LACTATED RINGERS 1,000 ML 30 ML IV CONT (07:50)
[2024-08-14] MEDS: KETOROLAC 15 MG/ML VIAL (*BKC) IV PUSH (07:53)
--- NOTE | 2024-08-14 08:51 | WPDHPUPDATE1 ---
History and Physical Update Update Date/Time: 08/14/24 08:51 History and Physical has been reviewed, including an updated exam of the patient. There are NO changes in the patient's condition. Risks, benefits, and alternatives have been discussed and questions answered. Patient agrees to proceed with procedure.
--- NOTE | 2024-08-14 08:53 | P.PNAN_ITS ---
[facility] - Initial Pre Proc Eval Procedure: Operation Date: 08/14/24 09:30 Proposed Procedures p Right Knee Arthroscopy Partial Medial Meniscectomy, Proceed As Indicated - Roberto Ceron MD Date/Time: 08/14/24 08:53 Surgeon: Roberto Ceron MD Pre Op Diagnosis: Rt Medial Meniscal Tear Patient Data Age: 59 Gender: F Height: 1.65 m Weight: 93.7 kg Last Vital Signs Temp 36.6 C 08/14/24 07:20 Pulse 89 08/14/24 07:20 Resp 18 08/14/24 07:20 BP 130/89 08/14/24 07:20 Pulse Ox 96 08/14/24 07:20 O2 Del Method Room Air 08/14/24 07:20 Allergies Allergy/AdvReac Type Severity Reaction Status Date / Time mold Allergy Severe Stopped Verified 08/14/24 08:04 Breathing Penicillins Allergy Severe Stopped Verified 08/14/24 08:04 Breathing milk AdvReac Intermediate Gastrointestinal Verified 08/14/24 08:04 Upset doxycycline AdvReac Mild rash Verified 08/14/24 08:04 iodine AdvReac Mild Rash Verified 08/14/24 08:04 Home Medications ?Medication ?Instructions ?Recorded ?Confirmed ?Type citalopram 40 mg tablet 40 mg PO DAILY 01/14/19 08/14/24 History fluticasone propionate 50 2 spray intranasal DAILY #47.4 mL 09/17/23 08/03/24 Rx mcg/actuation nasal spray,suspension (Allergy Relief (fluticasone)) diltiazem HCl 120 mg 120 mg PO DAILY #90 caps 05/17/24 08/14/24 Rx capsule,extended release 24 hr (Cartia XT) pravastatin 20 mg tablet See Rx Instructions .Route 06/26/24 08/14/24 Rx .COMPLEX #90 tabs trazodone 50 mg tablet See Rx Instructions .Route 06/26/24 08/14/24 Rx .COMPLEX #90 tabs ascorbic acid (vitamin C) 500 mg 500 mg PO DAILY 08/03/24 08/14/24 History tablet,extended release (C-500) calcium carb-ergocalciferol (vit 1 tablet PO DAILY 08/03/24 08/14/24 History D2) 600 mg calcium-200 unit tablet cyanocobalamin (vitamin B-12) 1,000 mcg PO DAILY 08/03/24 08/14/24 History 1,000 mcg tablet (Vitamin B-12) glucosamine-chondroitin 250 mg-200 2 tablet PO DAILY 08/03/24 08/14/24 History mg tablet omega 3-mck-gdg-fish oil 1,200 mg 1 cap PO DAILY 08/03/24 08/14/24 History (144 mg-216 mg) capsule (Fish Oil) vitamins A,C,G-tuka-mdkogq 4,296 2 cap PO DAILY 08/03/24 08/14/24 History mcg-226 mg-90 mg capsule Patient hx anesthesia problems: none Family hx anesthesia problems: none Results Review: All pre-operative results and documents have been reviewed as part of the pre- operative evaluation. [facility] Past Medical History Medical History Insomnia Severe obesity (BMI 35.0-35.9 with comorbidity) Hx of cataract BMI 35.0-35.9,adult Hyperlipidemia SVT (supraventricular tachycardia) medication controlled Surgical History Surgical History Hx of left knee surgery Previous section meniscus repair History of placement of ear tubes Family History Family History Mother Patient's mother is in good health Father Patient's father is in good health Sibling Patient's brother is in good health Social History Social History Smoking status: Never smoker Second hand tobacco smoke exposure: Yes Alcohol intake: current Substance use: never Substance use type: does not use Do You Feel Safe in your Home?: Yes Lack of Transportation: No Lack of Food: Never True Current Housing: I Have Housing Concerned About Future Housing: No Difficulty Paying Gas/Electric Bills: No Difficulty Paying for Meds: No Currently Unemployed: No Education: Bachelor's Degree Difficulty w/ Childcare or Family Care: No Living arrangements: with family Occupation/Education: occupation 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- [employer] Gender identity (if verbalized by the patient): Female Spiritual care concerns: No Anes - Eval Final PreProcedure Day of Procedure 08/14/24 08:53 Patient weight: obese Heart: regular rate and rhythm Lungs: clear to auscultation Airway: Mallampati scale class II Neurological: alert and oriented Last oral intake: >/= 8 hours ASA classification: III Emergent: no Anesthetic plan: proceed Anesthesia type and monitoring: general LMA and standard monitoring Results Review: All pre-operative results and documents have been reviewed as part of the pre- operative evaluation. Informed Consent: The patient's anesthetic plan and its attendant risks and benefits were discussed with the patient/family/POA. Questions were solicited and answers provided to the satisfaction of the patient/family/POA.
[2024-08-14] MEDS: ceFAZolin 2 GM/D5W 50 ML 2 GM/50 ML BAG IVPB (09:23)
[2024-08-14] MEDS: LIDO 1%/EPINEPHRINE 1:100,000 20 ML VIAL INFILTRATE (09:48)
--- NOTE | 2024-08-14 10:00 | W.PM.PROC2 ---
Procedure Note - Detailed Date of Procedure 08/14/24 Pre-op Diagnosis Right Medial Meniscal Tear Post-op Diagnosis Same Procedure Performed RIGHT knee arthroscopy with partial meniscectomy Surgeon Roberto Ceron MD Anesthesia General Indications Pain, Locking and Catching Description of Procedure Patient brought to operating room #7. An anesthetic was administered. The knee was sterilely prepped and draped in the usual manner. Standard portals were used. Superior medial portal was used for the outflow cannula, inferior lateral portal was used for the scope, inferior medial portal was used for the instruments. Arthroscopy was performed, the patellar femoral joint degenerative changes. The medial compartment showed a complex tear. The lateral compartment showed a small tear and fraying. The ACL was intact. Using baskets and artis the meniscal tear was trimmed back to a stable base so the nothing further could be pulled into the joint. Any loose or delaminated fragments were gently trimmed to a stable base. At this point the instruments were withdrawn, sutures placed and patient left the operating room in satisfactory condition. She was noted to have severe patellofemoral degenerative changes. Estimated Blood Loss 20 Drains No Packing No Pathology None sent Complications No immediate complications Condition Stable Disposition PACU [facility] Billing Surgery - Charge Forward: Surgery Billing ([id number] MMT)
[2024-08-14] MEDS: oxyCODONE HCL (*CRX) 5 MG TAB IR PO (11:45)
== END 2024-08-14 12:50 | disposition home or self-care (01) ==
PROVIDERS: PCP Family Medicine; Visit Provider Orthopaedic Surgery
PROC: (CPT 29870; principal; 2024-08-14 09:30)
DX: M23.331 Other meniscus derangements, other medial meniscus, right knee (principal); M23.361 Other meniscus derangements, other lateral meniscus, right knee; E66.9 Obesity, unspecified; Z68.34 Body mass index [BMI] 34.0-34.9, adult
CPT/HCPCS: 29881; A9270; J0690; J1100; J1171; J1885; J2003; J2004; J2250; J2405; J2704; J3010; J7120

== ENCOUNTER 2024-10-29 08:09 | Emergency (ER) | payer OTHER, SELFPAY ==
[2024-10-29 08:22] VITALS: BP 132/86; PULSE 96; RESP 16; TEMP 36.2; O2SAT 98
--- NOTE | 2024-10-29 08:35 | ED.URI ---
HPI - URI/Sore Throat General Chief Complaint: Upper Respiratory Infection Stated Complaint: Sinus Infection Symptoms Time Seen by Provider: 10/29/24 08:36 Source: patient Mode of arrival: ambulatory Limitations: no limitations History of Present Illness HPI Narrative: 59 yo F presents with c/o sinus pressure, increased congestion, blowing green drainage from nose, fatigue since yesterday. Hx of chronic sinutis. Takes xyzal daily and 2 nasal sprays. Has been having congestion, PND, intermittent pressure for the past 3 to 4 wks. Symptoms worsened yesterday. Concern for bacterial sinusitis. All systems reviewed and negative except as noted above. Related Data Home Medications ?Medication ?Instructions ?Recorded ?Confirmed ?Last Taken ?Type citalopram 40 mg tablet 40 mg PO DAILY 01/14/19 08/29/24 08/13/24 History ascorbic acid (vitamin C) 500 mg 500 mg PO DAILY 08/03/24 08/29/24 08/08/24 History tablet,extended release (C-500) calcium carb-ergocalciferol (vit 1 tablet PO DAILY 08/03/24 08/29/24 08/08/24 History D2) 600 mg calcium-200 unit tablet cyanocobalamin (vitamin B-12) 1,000 mcg PO DAILY 08/03/24 08/29/24 08/08/24 History 1,000 mcg tablet (Vitamin B-12) glucosamine-chondroitin 250 mg-200 2 tablet PO DAILY 08/03/24 08/29/24 08/08/24 History mg tablet omega 9-rit-hyd-fish oil 1,200 mg 1 cap PO DAILY 08/03/24 08/29/24 08/08/24 History (144 mg-216 mg) capsule (Fish Oil) vitamins A,C,E-bdxl-uqsthj 4,296 2 cap PO DAILY 08/03/24 08/29/24 08/08/24 History mcg-226 mg-90 mg capsule betamethasone dipropionate 0.05 % topical 10/29/24 Unknown History topical ointment estradiol 0.01% (0.1 mg/gram) vaginal 10/29/24 Unknown History vaginal cream fluticasone propionate 50 intranasal 10/29/24 Unknown History mcg/actuation nasal spray,suspension Allergies Allergy/AdvReac Type Severity Reaction Status Date / Time mold Allergy Severe Stopped Verified 10/29/24 08:17 Breathing Penicillins Allergy Severe Stopped Verified 10/29/24 08:17 Breathing milk AdvReac Intermediate Gastrointestinal Verified 10/29/24 08:17 Upset doxycycline AdvReac Mild rash Verified 10/29/24 08:17 iodine AdvReac Mild Rash Verified 10/29/24 08:17 [facility] Past Medical History Medical History Insomnia Severe obesity (BMI 35.0-35.9 with comorbidity) Hx of cataract BMI 35.0-35.9,adult Hyperlipidemia SVT (supraventricular tachycardia) medication controlled Surgical History Surgical History Hx of left knee surgery Previous section meniscus repair History of placement of ear tubes Family History Family History Mother Patient's mother is in good health Father Patient's father is in good health Sibling Patient's brother is in good health Social History Social History (Updated 08/29/24 @ 09:24 by Sumi Hankins 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 There is no relevant family history pertinent to the presenting complaint. Exam Narrative: GENERAL: This is a well-nourished, well-developed patient, ill-appearing but in no acute distress. HEAD: normocephalic, atraumatic. EYES: PERRL. Sclera clear/white. Vision is grossly intact. EARS: External ears normal, auditory canals clear and without drainage, clear fluid bilateral TMs without erythema. No perforation bilaterally. Hearing grossly intact. NOSE: External nose normal with purulent nasal drainage, erythema and swelling to bilateral nares. Maxillary sinus tenderness on palpation. THROAT: Mucous membranes moist, postnasal drainage with mild erythema. No swelling or exudates. NECK: Neck supple, non-tender without lymphadenopathy, masses or thyromegaly. CARDIOVASCULAR: Regular rate and rhythm without murmurs, gallops, or rubs. RESPIRATORY: Clear to auscultation. Breath sounds equal bilaterally. No wheezes, rales, or rhonchi. SKIN: warm, Dry, intact with no suspicious lesions or rash, good texture and turgor. NEURO: awake, alert, and oriented to person, place and time. There were no obvious focal neurologic abnormalities. EXTREMITIES: No joint tenderness, effusion, or edema noted. Course Course Level of Care: Express Care Visit Vital Signs Vital signs: Vital Signs Temperature 36.2 C L 10/29/24 08:22 Pulse Rate 96 10/29/24 08:22 Respiratory Rate 16 10/29/24 08:22 Blood Pressure 132/86 10/29/24 08:22 Pulse Oximetry 98 10/29/24 08:22 Temperature 36.2 C L 10/29/24 08:22 Pulse Rate 96 10/29/24 08:22 Respiratory Rate 16 10/29/24 08:22 Blood Pressure 132/86 10/29/24 08:22 Pulse Oximetry 98 10/29/24 08:22 Reviewed MDM - URI/Sore Throat MDM Narrative Medical decision making narrative: Will treat patient for bacterial sinusitis due to duration of symptoms and exam findings. Patient agrees with plan of care. Differential Diagnosis Differential diagnosis: Likely upper respiratory infection, sinusitis, viral infection and influenza Discharge Plan Discharge Clinical Impression: Acute bacterial sinusitis Patient Disposition: Home Condition: Stable Instructions: Antibiotic Form, Sinusitis (ED) Additional Instructions: Take antibiotic as prescribed. Take with a full glass of water. Do not take right before laying down for bed. Continue [id number] allergy medications as directed by her primary care physician. Drink at least 64 oz of water a day. See your doctor if symptoms are not improving. Patient Language: Danish Prescriptions: New clindamycin HCl [Cleocin HCl] 300 mg capsule 300 mg PO Q8H 7 Days Qty: 21 0RF No Action citalopram 40 mg Tablet 40 mg PO DAILY estradiol 0.01 % (0.1 mg/gram) cream VAGINAL betamethasone dipropionate 0.05 % ointment TOPICAL fluticasone propionate 50 mcg/actuation spray,suspension INTRANASAL diltiazem HCl [Cartia XT] 120 mg capsule,extended release 24hr 120 mg PO DAILY Qty: 90 3RF Patient Comments: Says takes in the evening. azelastine-fluticasone [Dymista] 137-50 mcg/spray spray,non-aerosol 1 spray intranasal BID Qty: 23 1RF Rx Instructions: administer into each nostril cyanocobalamin (vitamin B-12) [Vitamin B-12] 1,000 mcg tablet 1,000 mcg PO DAILY calcium carbonate-vitamin D2 600 mg calcium- 200 unit tablet 1 tablet PO DAILY ascorbic acid (vitamin C) [C-500] 500 mg tablet extended release 500 mg PO DAILY omega 5-aap-ybb-fish oil [Fish Oil] 1,200 (144-216) mg capsule 1 cap PO DAILY glucosamine-chondroitin 250-200 mg tablet 2 tablet PO DAILY Rx Instructions: give after food/meal vitamins A,C,M-toal-oixoye 4,296 mcg-226 mg-90 mg capsule 2 cap PO DAILY hydrocodone-acetaminophen 7.5-325 mg tablet 1 tablet PO Q4H PRN (Reason: pain) Qty: 40 0RF trazodone 50 mg tablet See Rx Instructions .ROUTE .COMPLEX Qty: 90 1RF Dose Instruction: TAKE 1 TABLET BY MOUTH EVERY DAY AT BEDTIME NEEDED FOR INSOMNIA Rx Instructions: TAKE 1 TABLET BY MOUTH EVERY DAY AT BEDTIME NEEDED FOR INSOMNIA pravastatin 20 mg tablet See Rx Instructions .ROUTE .COMPLEX Qty: 90 1RF Dose Instruction: TAKE 1 TABLET BY MOUTH DAILY Patient Comments: Says takes in the evening. Rx Instructions: TAKE 1 TABLET BY MOUTH DAILY Follow-up/Referrals: Nina Davey DO [Primary Care Provider, Family Practice] Time of Disposition: 08:45
== END 2024-10-29 08:47 | disposition home or self-care (01) ==
PROVIDERS: Emergency Provider Nurse Practitioner Family; PCP Family Medicine
DX: J01.90 Acute sinusitis, unspecified (principal); E78.5 Hyperlipidemia, unspecified; I47.10 Supraventricular tachycardia, unspecified; E66.01 Morbid (severe) obesity due to excess calories; Z68.33 Body mass index [BMI] 33.0-33.9, adult
CPT/HCPCS: 99213; G0463

== ENCOUNTER 2024-11-22 11:16 | Outpatient (CLI) | payer OTHER, SELFPAY ==
--- NOTE | ~2024-11-22 | XR_ITS ---
Examination: XR chest 2V Clinical History: Acute cough, 2 weeks sob, cough, and congestion Comparison: 02/15/2023 Technique: PA and Lateral Findings: Cardiomediastinal silhouette normal size and configuration. Lungs clear. Elevated right hemidiaphragm. No acute bony abnormality. IMPRESSION: 1. No acute cardiopulmonary findings. Reviewed, dictated and finalized at location R.
== END 2024-11-22 11:17 | disposition home or self-care (01) ==
LOC: GOSHIMG 11:17
PROVIDERS: PCP Family Medicine; Visit Provider Family Medicine
DX: R05.1 Acute cough (principal)
CPT/HCPCS: 71046

== ENCOUNTER 2025-02-06 13:53 | Outpatient (NON) | payer OTHER, SELFPAY | END 2025-02-06 13:54 | disposition home or self-care (01) | LOC: ANHLAB 13:53 | PROVIDERS: PCP Family Medicine Adolescent Medicine; Visit Provider Nurse Practitioner | DX: D36.9 Benign neoplasm, unspecified site (principal); D36.7 Benign neoplasm of other specified sites | CPT/HCPCS: 87045; 87046; 87427 ==